=== PATIENT | male | born 1985 | race Caucasian/White ===

== ENCOUNTER → 2019-07-14 | Outpatient (CLI) | payer MEDICARE ==
[~2019-07-14] MED LIST: ATORVASTATIN CA10 MG PO; IOPAMIDOL 370 MG/ML 200 ML INFUS..BTL INJ ONE; METOPROLOL SUCC50 MG PO; PANTOPRAZOLE SO40 MG PO; RAMIPRIL5 MG PO; SODIUM CHLORIDE 0.9% 50ML 50 ML ONE; ULTRAM50 MG PO
[2019-07-14 15:37] LABS: BLOOD UREA NITROGEN 14 mg/dL (7-26); BUN/CREATININE RATIO 16 (6-25); CREATININE, SERUM 0.87 mg/dL (0.72-1.25); EST GLOMERULAR FILTRATION RATE > 60 ML/MIN (60-)
--- NOTE | 2019-07-14 16:30 | Diagnostic Imaging Report ---
ADDENDUM #1 Addendum of original interpretation of Dr. Godinez is provided at Dr. Eaton's request. There is a 2.0 x 1.6cm soft tissue nodule lateral to the left psoas muscle (axial image 54). Per Dr. Eaton, this was also present on an outside non-contrast CT although these images are not available for comparison at this time. Given the patient's history of malignancy, attention to this area on future follow-up imaging is recommended. The above findings were discussed with Dr. Eaton on 07/17/2019 1:36 PM, who responded indicating that the communication was understood. Signed by: Kandis Morales MD on 07/17/2019 2:38 PM ORIGINAL REPORT EXAM: CT of the abdomen and pelvis with and without intravenous contrast HISTORY: Renal stones COMPARISON: None TECHNIQUE: Abdomen and pelvis were scanned utilizing a multidetector helical scanner. Coronal and sagittal reformations were obtained. Scan was performed before and during the portal venous phase. DOSE REDUCTION: The examination was performed according to the departmental dose-optimization program, which includes automated exposure control, adjustment of the mA and/or kV according to patient size and/or use of iterative reconstruction technique. FINDINGS: LINES and TUBES: Partially visualized cardiac lead. LOWER THORAX: Unremarkable. HEPATOBILIARY: Decreased hepatic attenuation in relation to the spleen. No focal hepatic lesions. No biliary ductal dilation. GALLBLADDER: Cholecystectomy. SPLEEN: No splenomegaly. PANCREAS: No focal masses or ductal dilatation. ADRENALS: No adrenal nodules. KIDNEYS/URETERS: Kidneys enhance symmetrically. No hydronephrosis. No solid mass lesions. Right renal superior pole 1 cm probable simple cyst. Interpolar 0.2 cm bilateral nonobstructing renal stones. GI TRACT: Sliding hiatal hernia. No abnormal distention, wall thickening, or evidence of bowel obstruction. Appendectomy. PELVIC ORGANS/BLADDER: Unremarkable. LYMPH NODES: No lymphadenopathy. VESSELS: Unremarkable. PERITONEUM / RETROPERITONEUM: No free air or fluid. BONES: Bilateral L5 pars defects. SOFT TISSUES: Unremarkable. IMPRESSION: 1. Bilateral subcentimeter nonobstructing nephrolithiasis. 2. Low hepatic attenuation, can be seen in hepatic steatosis/inflammation. Correlate with LFTs. 3. Bilateral L5 pars defects. Signed by: Rudi Godinez MD on 07/14/2019 4:27 PM
== END ==
LOC: CT 14:52
PROVIDERS: ATTEND Urology
DX: C62.92 Malignant neoplasm of left testis, unspecified whether descended or undescended (principal)
CPT/HCPCS: 36415; 74178; 82565; 84520; Q9967

== ENCOUNTER → 2019-07-17 | Day surgery (SDC) | payer MEDICARE ==
[~2019-07-17] MED LIST changes: +B&O 60MG R/S 60 MG SUPP PR ONE; +CEFTRIAXONE SOD 1 GM/NS 50 ML 50 ML IV ONE; +DEXAMETHASONE SOD PHOS INJ 4 MG/ML VIAL ONE; +FENTANYL CITRATE/PF 100MCG/2 ML INJ ONE; +IOPAMIDOL 300MG/ML 50ML INFUS..BTL IV ONE; -IOPAMIDOL 370 MG/ML 200 ML INFUS..BTL INJ ONE; +LIDOCAINE HCL 2% LOCAL INJ 5 ML SDV VIAL INJ ONE; +METOCLOPRAMIDE HCL 10 MG/2ML VIAL ONE; +MIDAZOLAM HCL 2 MG/2 ML VIAL ONE; +MORPHINE SULFATE INJ 4 MG/ML INJ 1ML ONE; +ONDANSETRON HCL INJ 2MG/ML 2ML 2 MG/ML VIAL ONE; +PROPOFOL IV EMULSION 10 MG/ML 20 ML VIAL ONE; +SEVOFLURANE INHAL SOLN 250 ML PEN BTL ONE; -SODIUM CHLORIDE 0.9% 50ML 50 ML ONE
--- OUTSIDE RECORDS SUMMARY | 2019-07-17 11:10 | XMS REPORT | Summary of Care ---
Author Author Adilia Mendoza R.N. Unknown Address Unknown Phone Unavailable Care Team Providers Care Soaker Meat Name Role Phone ODILON Tao, MARGARITO Unavailable Unavailable Adilia Mendoza R.N. Unavailable Unavailable JASPER TYLER UT, STEFANIA Unavailable Unavailable JIMÉNEZ MARCOS MARTINEZ Unavailable Unavailable LANIE HOOKER MD Unavailable Unavailable JASPER D.O., ESTIVEN-PERLA Unavailable Unavailable Margarito Rivera MD Unavailable Unavailable THADDEUS ASTUDILLO MD Unavailable Unavailable Unavailable Unavailable Functional Status Name Dates Details Functional status health issues are not documented Status: Name Dates Details Cognitive status health issues are not documented Status: Problems Name Dates Details Fatigue (780.79, R53.83) Status: Active ICD (implantable cardioverter-defibrillator) in place (V45.02, Z95.810) Status: Active HTN (hypertension) (401.9, I10) Status: Active NICM (nonischemic cardiomyopathy) (425.4, I42.8) Status: Active Hyperlipidemia (272.4, E78.5) Status: Active Tobacco abuse counseling (V65.42, Z71.6) Status: Active Medications Name Dates Details Atorvastatin Calcium 10 MG Oral Tablet TAKE 1 TABLET DAILY. Quantity: 90 DHOBLE M.D., MARGARITO Active Metoprolol Succinate ER 25 MG Oral Tablet Extended Release 24 Hour TAKE ONE TABLET BY MOUTH DAILY * Quantity: 90 Refills: 3 DHOBLE M.D., MARGARITO Active Ramipril 2.5 MG Oral Capsule TAKE 1 CAPSULE ONCE DAILY. * Quantity: 90 Refills: 3 DHOBLE M.D., MARGARITO Active Allergies and Adverse Reactions Name Dates Details Azithromycin PACK (Allergy) Status: Active Codeine Derivatives (Allergy) Status: Active erythromycin (Allergy) Status: Active Sulfa Drugs (Allergy) Status: Active Zithromax (Allergy) Status: Active Past Medical History Name Dates Details History of Chronic systolic congestive heart failure (428.22, I50.22) Status: Resolved History of malignant neoplasm of colon (V10.05, Z85.038) Status: Resolved History of malignant neoplasm of testis (V10.47, Z85.47) Status: Resolved History of myocardial infarction (412, I25.2) Status: Resolved History of SOB (shortness of breath) on exertion (786.05, R06.02) Status: Resolved Procedures Procedure Dates Details History of Cardioverter defibrillator insertion Completed History of Testicular surgery Completed Immunization Name Dates Details Immunizations not documented Family History Name Dates Details Family history of Lupus (710.0, M32.9) Status: Active Family history of arthritis (V17.7, Z82.61) Status: Active Social History Name Dates Details - Status: Name Dates Details Smokes tobacco daily (finding) Vital Signs Date Test Result Details No Known Vitals to report Results Date Description Value Details Results not documented Plan of Care Name Dates Details Planned Observations Planned Goals not documented Planned Encounters Appointment; LANIE LOZANO On: 22-Jun-2019 14:45 Appointment; MARGARITO RIVERA M.D. On: 05-Oct-2019 9:40 Interventions Provided Discussion/Summary* Guideline Used: * Other: Speak to staff * Clinic: [facility] * Pt calling to report implanted pacemaker was vibrating @ 1300 and now transmitter is alarming. Reported issue to [facility] @ 1696, awaiting call back but anxious. He concerned pacemaker is not working properly. Reports h/o similar issue some time ago " I passed out without warning before and didn't have any symptoms then", ended up in ER and "told me my pacemaker was not working". Also concerned that pacemaker "A" lead is not working and told eventually need replacing. H/O NICM, HTN, BP 140/71 HR 83 and admits does not take BP meds x several months. Denies any chest pain, sob, difficulty breathing, palpitations, blurred vision, slurred speech, N/V, dizziness, lightheadedness. * @ 3871, Verbal report given to On-call Cardiology- Dr. Astudillo. Received and read back MD advice to go to [facility] ER to have device checked and integrate. * I reviewed MD advice as above. Understanding verbalized. Pt will have GF drive him to [facility] ER. * Recommended Disposition: * Go to ER * Action Taken: * Patient informed/educated about nurse line * Intended Caller Action: * Other: Speak to staff * Additional Information: * FYI urgent task sent to Dr. Rivera and Dr. Astudillo. Instructions Name Dates Details Instructions not documented Encounters Appointment; MARGARITO RIVERA M.D. Encounter Diagnosis: Problem not documented On: 30-Jun-2018 10:40 Appointment; MARGARITO RIVERA M.D. Encounter Diagnosis: Problem not documented On: 14-Jul-2018 9:20 Appointment; [facility] Encounter Diagnosis: Problem not documented On: 15-Jul-2018 15:30 Appointment; STEFANIA HUTCHINSON D.O. Encounter Diagnosis: Problem not documented On: 22-Jul-2018 9:30 Appointment; [facility], [facility] Encounter Diagnosis: Problem not documented On: 18-Aug-2018 8:00 Appointment; [facility] Encounter Diagnosis: Problem not documented On: 18-Aug-2018 9:15 Appointment; MARGARITO RIVERA M.D. Encounter Diagnosis: Problem not documented On: 01-Sep-2018 10:20 Appointment; MARGARITO RIVERA M.D. Encounter Diagnosis: Problem not documented On: 06-Oct-2018 9:20 Appointment; STEFANIA HUTCHINSON D.O. Encounter Diagnosis: Problem not documented On: 30-Oct-2018 13:45 Appointment; LANIE LOZANO Encounter Diagnosis: Problem not documented On: 24-Nov-2018 14:15 Appointment; MARCOS JIMÉNEZ Encounter Diagnosis: Problem not documented On: 03-Dec-2018 15:30 Appointment; LANIE LOZANO Encounter Diagnosis: Problem not documented On: 22-Dec-2018 16:00
--- OUTSIDE RECORDS SUMMARY | 2019-07-17 11:10 | XMS REPORT | Summary of Care ---
Author Author Adilia Mendoza R.N. Unknown Address Unknown Phone Unavailable Care Team Providers Care Digital Engineer Name Role Phone ODILON Tao, MARGARITO Unavailable [...] Used: * Other: Speak to staff * Clinic * Pt calling to report implanted pacemaker was vibrating @ 1300 and now transmitter is alarming. Reported issue to [facility] @ 2344, awaiting call back but anxious. He concerned pacemaker is not working properly. Reports h/o similar issue some time ago " I passed out without warning before and didn't have any symptoms then", ended up in ER and "told me my pacemaker was not working". Also concerned that pacemaker "A" lead is not working and told eventually need replacing.. BP 140/71 HR 83. Denies any chest pain, sob, difficulty breathing, palpitations, blurred vision, slurred speech, N/V, dizziness, lightheadedness. * @ , Verbal report given to Dr. Daniel waldronate Casentric machine. checked by ER Dr office on saturday or ER. * ER [facility] Instructions Name Dates Details Instructions not documented Encounters Appointment; MARGARITO RIVERA M.D. Encounter Diagnosis: Problem not documented On: 30-Jun-2018 10:40 Appointment; MARGARITO RIVERA M.D. Encounter Diagnosis: Problem not documented On: 14-Jul-2018 9:20 Appointment; [facility] Encounter Diagnosis: Problem not documented On: 15-Jul-2018 15:30 Appointment; STEFANIA HUTCHINSON D.O. Encounter Diagnosis: Problem not documented On: 22-Jul-2018 9:30 Appointment; [facility], [facility] Encounter Diagnosis: Problem not documented On: [...]
--- OUTSIDE RECORDS SUMMARY | 2019-07-17 11:10 | XMS REPORT | Summary of Care ---
Author Author Rosanna Jo Organization Unknown Address Unknown Phone Unavailable Care Team Providers Care Fuel Injection Servicer Name Role Phone Rosanna Jo Unavailable Unavailable MIGUEL Toa, MARGARITO Unavailable Unavailable YEIsaac APODACA, STEFANIA Unavailable Unavailable JIMÉNEZ MARCOS MARTINEZ Unavailable Unavailable LANIE HOOKER MD Unavailable Unavailable YEH D.O., ESTIVEN-PERLA Unavailable Unavailable Miguel BURCH, Margarito Unavailable Unavailable WILDA BURCH, THADDEUS Unavailable Unavailable Unavailable Unavailable Functional Status Name [...] Dates Details - Status: Name Dates Details Current every day smoker Vital Signs Date Test Result Details No Known Vitals to report Results Date Description Value Details Results not documented Plan of Care Name Dates Details Planned Observations Planned Goals not documented Planned Encounters Appointment; LANIE LOZANO On: 22-Jun-2019 14:45 Appointment; MARGARITO DONALD M.D. On: 05-Oct-2019 9:40 Instructions Name Dates Details Instructions not documented Encounters Appointment; MARGARITO DONALD M.D. Encounter Diagnosis: Problem not documented On: 30-Jun-2018 10:40 Appointment; MARGARITO DONALD M.D. Encounter Diagnosis: Problem not documented On: 14-Jul-2018 9:20 Appointment; [facility] Encounter Diagnosis: Problem not documented On: 15-Jul-2018 15:30 Appointment; STEFANIA HUTCHINSON D.O. Encounter Diagnosis: Problem not documented On: 22-Jul-2018 9:30 Appointment; [facility], E[facility] Encounter Diagnosis: Problem not documented On: 18-Aug-2018 8:00 Appointment; [facility], DEVICE Encounter Diagnosis: Problem not documented On: 18-Aug-2018 9:15 Appointment; MARGARITO DONALD M.D. Encounter Diagnosis: Problem not documented On: 01-Sep-2018 10:20 Appointment; MARGARITO DONALD M.D. Encounter Diagnosis: Problem not documented On: 06-Oct-2018 9:20 Appointment; STEFANIA HUTCHINSON D.O. Encounter Diagnosis: Problem not documented On: 30-Oct-2018 13:45 Appointment; LANIE LOZANO Encounter Diagnosis: Problem not documented On: 24-Nov-2018 14:15 Appointment; MARCOS JIMÉNEZ Encounter Diagnosis: Problem not documented On: 03-Dec-2018 15:30 Appointment; LANIE LOZANO Encounter Diagnosis: Problem not documented On: 22-Dec-2018 16:00
--- OUTSIDE RECORDS SUMMARY | 2019-07-17 11:10 | XMS REPORT ---
Author Author [facility] Address Unknown Phone Unavailable Care Team Providers Care Restaurant Manager Name Role Phone TEMI VAN Unavailable Unavailable Payers Payer Name Policy Type Policy Number Effective Date Expiration Date Problems This patient has no known problems. Allergies, Adverse Reactions, Alerts Allergy Name Allergy Type Status Severity Reaction(s) Onset Date Inactive Date Treating Clinician Comments adhesive DA Active SV 2019-07-07 00:00:00 Sulfa (Sulfonamide Antibiotics) DA Active U 2018-10-18 00:00:00 codeine DA Active U 2018-10-18 00:00:00 aspirin DA Active MO 2018-10-18 00:00:00 azithromycin DA Active U 2018-10-18 00:00:00 ibuprofen DA Active MO 2018-10-18 00:00:00 Sulfa (Sulfonamide Antibiotics) DA Active U 2018-09-29 00:00:00 codeine DA Active U 2018-09-29 00:00:00 aspirin DA Active MO 2018-05-10 00:00:00 azithromycin DA Active U 2010-06-13 00:00:00 ASPRIN DA Active U 2010-06-10 00:00:00 Medications This patient has no known medications. Encounters Start Date/Time End Date/Time Encounter Type Admission Type Attending [facility] Facility Care Department Encounter ID 2018-10-07 23:36:00 2018-10-07 23:36:00 Outpatient E SE MED [id number] 2018-08-28 12:08:00 2018-08-28 12:08:00 Outpatient HH CAR [id number] 2018-07-29 12:45:00 2018-07-29 12:45:00 Outpatient MHSE MHSE [id number] Results Test Description Test Time Test Comments Text Results Atomic Results Result Comments CT ABDOMEN/PELVIS WOW 2019-07-14 16:19:00 [place] [address] [place] [address] Patient Name: HOLLIE NGUYEN MR #: [id number] : 1985 Age/Sex: 33/M Req #: [id number] Adm Physician: Ordered by: TEMI VAN MD Report #: [id number] Location: CT Room/Bed: Procedure: [id number] CT/CT ABDOMEN/PELVIS WO Exam Date: 07/14/19 Exam Time: 1550 REPORT STATUS: Signed EXAM: CT of the abdomen and pelvis with and without i ntravenous contrast HISTORY: Renal stones COMPARISON: None TECHNIQUE: Abdomen and pelvis were scanned utilizing a multidetector helical scanner. Coronal and sagittal reformations were obtained. Scan was performed before and during the portal venous phase. DOSE REDUCTION: The examination was performed according to the departmental dose-optimization program, which includes automated exposure control, adjustment of the mA and/or kV according to patient size and/or use of iterative reconstruction technique. FINDINGS: LINES and TUBES: Partially visualized cardiac lead. LOWER THORAX: Unremarkable. HEPATOBILIARY: Decreased hepatic attenuation in relation to the spleen. No focal hepatic lesions. No biliary ductal dilation. GALLBLADDER: Cholecystectomy. SPLEEN: No splenomegaly. PANCREAS: No focal masses or ductal dilatation. ADRENALS: No adrenal nodules. KIDNEYS/URETERS: Kidneys enhance symmetrically. No hydronephrosis. No solid mass lesions. Right renal superior pole 1 cm probable simple cyst. Interpolar 0.2 cm bilateral nonobstructing renal stones. GI TRACT: Sliding hiatal hernia. No abnormal distention, wall thickening, or evidence of bowel obstruction. Appendectomy. PELVIC ORGANS/BLADDER: Unremarkable. LYMPH NODES: No lymphadenopathy. VESSELS: Unremarkable. PERITONEUM / RETROPERITONEUM: No free air or fluid. BONES: Bilateral L5 pars defects. SOFT TISSUES: Unremarkable. IMPRESSION: 1. Bilateral subcentimeter nonobstructing nephrolithiasis. 2. Low hepatic attenuation, can be seen in hepatic steatosis/inflammation. Correlate with LFTs. 3. Bilateral L5 pars defects. Signed by: Rudi Cummins MD on 07/14/2019 4:27 PM Dictated By: RUDI CUMMINS DO 26 Transcribed By: HAILE on 07/14/191626 COPY TO: TEMI VAN MD DUODENUM,BIOPSY 2019-07-09 15:50:00 RUN DATE: 07/09/19 [facility] PAGE 1 RUN TIME: 1551 Specimen Inquiry RUN USER: INTERFACE PATIENT: HOLLIE NGUYEN LOC: V.DSU U #: [id number] AGE/SX: 33/M ROOM: RE07/08/19REG DR: Henrry Parker MD : [birth year] BED: DIS: [place] [facility] [place] SPEC #: [id number] RECD: 07/08/19 STATUS: ANA LAURA GORDON #: [id number] CECY: 07/08/[address]: Henrry Parker MD ENTERED: 07/08/19 SP TYPE: BX DUODEN FREEDOM DR: ORDERED: GROSS PROCEDURES: GROSS (07/09/19) TISSUES: 1. DUODENUM, NOS - BX 2. 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 The second specimen is received in formalin, labeled with the patient's name, and identified as "gastric", and consists of four light pink biopsy tissue measuring 0.35 cm in aggregate, submitted as (2). GROSS PERFORMED AT [facility] CONTINUED ON NEXT PAGE RUN DATE: 07/09/19 [facility] PAGE 2 RUN TIME: 1551 Specimen Inquiry RUN USER: INTERFACE SPEC #: [id number] PATIENT: HOLLIE NGUYEN #[id number] (Continued) MACROSCOPIC (Continued) [address] [place] [address] [phone] MICROSCOPIC A giemsa stain was performed on the gastric biopsy to exclude helicobacter organisms. All of the stains, including any controls performed, stain appropriately. MICROSCOPIC PERFORMED AT [facility] [address] [place] [address] [phone] PERFORMING SITE Diagnosis performed at: [facility] [address] [facility] [address] Signed SIGNATURE ON FILE Kirk Devi MD 07/09/19 1550 END OF REPORT CALCIUM 2019-07-04 08:54:00 CALCIUM (test code=CA) 8.8 mg/dL 8.5-10.1 [id number] 08:54:00* Test Item Value Reference Range Comments PHOSPHORUS (test code=PHOS) 2.7 mg/dL 2.5-4.9 [id number] 08:54:00* Test Item Value Reference Range Comments MAGNESIUM (test code=MAG) 2.4 mg/dL 1.8-2.4 THYROID STIMULATING [id number] 08:54:00* Test Item Value Reference Range Comments THYROID STIMULATING HORMONE (test code=TSH) 0.844 uIU/mL 0.36-3.74 TSH REFERENCE RANGES: EUTHYROID: 0.35 - 4.3 mIU/mL HYPO : > 5.5 mIU/mL HYPER : < 0.35 mIU/mL [id number] 08:40:00* Test Item Value Reference Range Comments CALCIUM (test code=CA) 8.8 mg/dL 8.5-10.1 [id number] 08:40:00* Test Item Value Reference Range Comments PHOSPHORUS (test code=PHOS) mg/dL 2.5-4.9 [id number] 08:40:00* Test Item Value Reference Range Comments MAGNESIUM (test code=MAG) 2.4 mg/dL 1.8-2.4 THYROID STIMULATING [id number] 08:40:00* Test Item Value Reference Range Comments THYROID STIMULATING HORMONE (test code=TSH) uIU/mL 0.36-3.74 PROTHROMBIN [id number] 08:39:00* Test Item Value Reference Range Comments PROTHROMBIN TIME PATIENT (test code=PTP) 12.2 seconds 9.0-14.0 INTERNATIONAL NORMAL RATIO (test code=INR) 1.0 0.8-1.2 The therapeutic range for oral anticoagulant therapy formost indications is an international normalized ratio (INR)of between 2.0 and 3.0. The recommended therapeutic INRrange for various clinical situations is listed below: Clinical Situation INR range Pulmonary e mbolism treatment (2.0-3.0)Venous thrombosis treatmentVenous thrombosis prophylaxis (high risk surgery)Prevention of systemic embolism from: Acute myocardial infarction Valvular heart disease Atrial fibrillation Mechanical prosthetic heart valves (2.5-3.5) IS PATIENT ON ANTICOAGULANTS? N- CT CHEST [id number] 00:54:00 Name: HOLLIE NGUYEN [facility] : 1985 Age/S: 33 / M [address] [facility] [place] Unit #: [id number] Loc: [place] [address] Phys: Mynor Rivas MD Acct: [id number] Di s Date: Status: REG ER PHONE #: [phone] Exam Date: 07/04/2019 0037 FAX #: Reason: FEELS SOMETHING STUCK IN ESOPHAGUS EXAMS: CPT CODE: [id number] CT CHEST W/CO NTRAST 57935 AFTER HOURS SERVICE ON: 12:[address] Scan of the Chest With Contrast Location Code M12 History: FEELS SOMETHING STUCK IN ESOPHAGUS Technique: Scans were performed on a helical scanner post IV contrast only. One or more of the following dose reduction techniques were used: Automated exposure control, adjustment of the mA and/or kV a ccording to patient size, and/or utilization of iterative reconstruction technique. Findings: Mild atelectatic changes noted in the lung bases. There is no effusion, infiltrate, edema or pneum othorax. There is an old healed or healing right 6th lateral rib fracture . There is no cardiomegaly or pericardial effusion. There is no mediastinal mass or adenopathy. There is a small hiatal herni a. The esophagus contains minimal debris-like material in the distal thor acic segment. Remainder of the esophagus appears otherwise within normal limits. There is no extrinsic mass effect on the esophagus. There is no pneumomediastinum. Impression: Minimal d ebris-like material in the distal thoracic esophagus. Otherwise, unrema rkable CT appearance of the esophagus. Small hiatal hernia. Old or healing right 6th lateral rib fracture. at 0054 Reported and signed by: Maylin Downing M.D. PAGE 1 Signed Report (CONTINUED) Name: HOLLIE NGUYEN [facility] : 1985 Age/S: 33 / M [address] [facility] Unit #: [id number] Loc: [place] [address] Phys: Bhavya Rivas MD Acct: [id number] Dis Date: Status: REG ER PHONE #: [phone] Exam Date: 07/04/2019 0037 FAX #: [phone] Reason: FEELS SOMETHING STUCK IN ESOPHAGUS EXAMS: CPT CODE: [id number] CT CHEST W/CONTRAST 10873 < Continued> CC: Technologist:ALONDRA OCHOA RT(R),RDMS,CT CTDI: DLP: Trnscb Date/Time: 07/04/2019 (005) [email or web address] Orig Print D/T: S: 07/04/2019 (0058) PAGE 2 Signed Report - XR CHEST 1 [id number] 00:48:00 Name: HOLLIE NGUYEN [facility] : 1985 Age/S:33 /M [address] [facility] [place] Unit#:[id number] Loc: [place] [address] Phys: Mynor Rivas MD Dis Date: PHONE #: [phone] Status: REG ER FAX #: [phone] Exam Date: 07/04/2019 Re ason: CHEST PAIN EXAMS: CPT CODE: [id number] XR CHEST 1 V 75795 LOCATION: Q15 HISTORY: 33-year-old male who presents with chest pain. The patient is concerned t hat a piece of meat is lodged in the esophagus. COMMENT: A frontal chest radiograph was obtained at 12:22 a.m., and compared to study of November 02, 2008. Chronic appearing interstitial infiltrate is seen centrally the lungs. Lung periphery is clear. No pleural effusions are seen. The cardiac silhouette and mediastinal structures are unrema rkable. The skeleton and soft tissues are unremarkable. Agai n seen is a bipolar left-sided cardiac pacemaker. Cardiac monitoring leads are present. IMPRESSION: There is no radiogra phic evidence of acute cardiopulmonary disease. A chronic appearing inte rstitial markings are again seen centrally in the lungs. at 0048 Reported and signed by: Jose G Garcia M.D. CC: Technologist: ALONDRA OCHOA RT(R),RDMS,CT Trnscrpt Data: 07/04/2019 (0048) [email or web address] Orig Print D/T: S: 07/04/2019 (0051) PAGE 1 Signed Report BASIC METABOLIC [id number] 00:15:00* Test Item Value Reference Range Comments SODIUM (test code=NA) 139 mmol/L 136-145 POTASSIUM (test code=K) 4.0 mmol/L 3.5-5.1 CHLORIDE (test code=CL) 103 mmol/L 101-109 CARBON DIOXIDE (test code=CO2) 22.7 mmol/L 21-32 ANION GAP (test code=GAP) 17 mmol/L 10-20 GLUCOSE (test code=GLU) 107 mg/dL 74-106 BLOOD UREA NITROGEN (test code=BUN) 14 mg/dL 3-21 GLOMERULAR FILTRATION RATE (test code=GFR) > 60 mL/min >=60 Estimated GFR by using Modified MDRD formula.Chronic kidney disease is defined as either kidney damageor GFR <60 mL/min/1.73 m2 for >3 months. CREATININE (test code=CREAT) 0.83 mg/dL 0.55-1.3 BUN/CREATININE RATIO (test code=BUN/CREA) 16.9 10-20 CALCIUM (test code=CA) 8.7 mg/dL 8.4-10.2 HEPATIC FUNCTION [id number] 00:15:00* Test Item Value Reference Range Comments TOTAL PROTEIN (test code=PROT) 7.6 g/dL 6.5-8.4 ALBUMIN (test code=ALB) 3.9 g/dL 3.4-4.8 GLOBULIN (test code=GLOB) 3.7 G/DL 1-10 ALBUMIN/GLOBULIN RATIO (test code=A/G) 1.05 RATIO 0.75-1.50 BILIRUBIN TOTAL (test code=BILT) 0.30 mg/dL 0.0-1.0 BILIRUBIN DIRECT (test code=BILD) 0.10 mg/dL 0.0-0.30 SGOT/AST (test code=AST) 26 U/L 6-32 SGPT/ALT (test code=ALT) 56 U/L 12-78 Note: Change in REFERENCE RANGE due to new reagent method. ALKALINE PHOSPHATASE TOTAL (test code=ALKP) 100 U/L 38-126 [id number] 00:15:00* Test Item Value Reference Range Comments LIPASE (test code=LIP) 83 U/L 128-270 [id number] 00:15:00* Test Item Value Reference Range Comments TROPONIN-I (test code=TROPI) <0.015 ng/mL 0.00-0.056 B-TYPE NATRIURETIC [id number] 00:12:00* Test Item Value Reference Range Comments B-TYPE NATRIURETIC PEPTIDE (test code=BNP) 6.0 pg/mL 0-100 CBC W/O [id number] 00:04:00* Test Item Value Reference Range Comments WHITE BLOOD CELL (test code=WBC) 9.3 K/mm3 4.5-12.5 RED BLOOD CELL (test code=RBC) 4.94 mill/mm3 4.0-5.8 HEMOGLOBIN (test code=HGB) 15.4 gram/dL 13.0-17.5 HEMATOCRIT (test code=HCT) 44.0 % 42.0-52.0 MEAN CELL VOLUME (test code=MCV) 89.1 fL 80-98 MEAN CELL HGB (test code=MCH) 31.2 picogram 27.0-33.0 MEAN CELL HGB CONCETRATION (test code=MCHC) 35.0 gram/dL 33.0-36.0 RED CELL DISTRIBUTION WIDTH (test code=RDW) 12.3 % 11.6-16.2 RED CELL DISTRIBUTION WIDTH SD (test code=RDW-SD) 40.5 fL 37.0-51.0 PLATELET COUNT (test code=PLT) 315 K/mm3 150-450 MEAN PLATELET VOLUME (test code=MPV) 10.1 fL 6.7-11.0 CHLAMYDIA GC DNA BY [id number] 21:06:00* Test Item Value Reference Range Comments C. TRACHOMATIS DNA BY PCR (test code=CHLAMTDNA) Negative Negative N. GONORRHOEAE DNA BY PCR (test code=NGONORDNA) Negative Negative Performed At: [facility] [place], [place] [address]PdrpgpRitter Antonieta BURCH Ph:[phone] performed at: [facility] [address] [place] [address] URINALYSIS [id number] 14:10:00* Test Item Value Reference Range Comments UA COLOR (test code=COLU) YELLOW YELLOW UA APPEARANCE (test code=APPU) CLEAR CLEAR UA GLUCOSE DIPSTICK (test code=DGLUU) NEGATIVE mg/dL NEGATIVE UA BILIRUBIN DIPSTICK (test code=BILU) NEGATIVE mg/dL NEGATIVE UA KETONE DIPSTICK (test code=KETU) NEGATIVE mg/dL NEGATIVE UA SPECIFIC GRAVITY (test code=SGU) 1.041 1.001-1.035 UA BLOOD DIPSTICK (test code=JASMIN) Negative mg/dL NEGATIVE UA PH DIPSTICK (test code=DAYANARA) 5.5 5.0-8.0 UA PROTEIN DIPSTICK (test code=PROU) 30 (1+) mg/dL NEGATIVE UA UROBILINIOGEN DIPSTICK (test code=URO) 4.0 (2+) mg/dL NEGATIVE UA NITRITE DIPSTICK (test code=NATHALY) NEGATIVE NEGATIVE UA LEUKOCYTE ESTERASE W REFLEX (test code=LEUUR) NEGATIVE Mariia/uL NEGATIVE UA WBC (test code=WBCU) 0-5 per HPF 0-5 UA RBC (test code=RBCU) 3-5 #/HPF 0-5 UA EPITHELIAL CELLS (test code=EPIU) FEW per HPF FEW UA BACTERIA (test code=BACU) TRACE #/HPF NONE UA MUCUS (test code=MUCU) FEW #/LPF FEW Urine Source? Clean CatchURINALYSIS [id number] 14:05:00* Test Item Value Reference Range Comments UA COLOR (test code=COLU) YELLOW YELLOW UA APPEARANCE (test code=APPU) CLEAR CLEAR UA GLUCOSE DIPSTICK (test code=DGLUU) NEGATIVE mg/dL NEGATIVE UA BILIRUBIN DIPSTICK (test code=BILU) NEGATIVE mg/dL NEGATIVE UA KETONE DIPSTICK (test code=KETU) NEGATIVE mg/dL NEGATIVE UA SPECIFIC GRAVITY (test code=SGU) 1.041 1.001-1.035 UA BLOOD DIPSTICK (test code=JASMIN) Negative mg/dL NEGATIVE UA PH DIPSTICK (test code=DAYANARA) 5.5 5.0-8.0 UA PROTEIN DIPSTICK (test code=PROU) 30 (1+) mg/dL NEGATIVE UA UROBILINIOGEN DIPSTICK (test code=URO) 4.0 (2+) mg/dL NEGATIVE UA NITRITE DIPSTICK (test code=NATHALY) NEGATIVE NEGATIVE UA LEUKOCYTE ESTERASE W REFLEX (test code=LEUUR) NEGATIVE Mariia/uL NEGATIVE UA WBC (test code=WBCU) per HPF 0-5 UA RBC (test code=RBCU) per HPF 0-5 UA EPITHELIAL CELLS (test code=EPIU) per HPF Few UA BACTERIA (test code=BACU) per HPF NONE Urine Source? Clean CatchBASIC METABOLIC [id number] 13:05:00* Test Item Value Reference Range Comments SODIUM (test code=NA) 136 mmol/L 136-145 POTASSIUM (test code=K) 3.9 mmol/L 3.5-5.1 CHLORIDE (test code=CL) 104.0 mmol/L 98-107 CARBON DIOXIDE (test code=CO2) 24.0 mmol/L 21-32 ANION GAP (test code=GAP) 11.9 10-20 GLUCOSE (test code=GLU) 103 mg/dL 74-106 BLOOD UREA NITROGEN (test code=BUN) 16 mg/dL 7-18 GLOMERULAR FILTRATION RATE (test code=GFR) > 60 mL/min >=60 Estimated GFR by using Modified MDRD formula.Chronic kidney disease is defined as either kidney damageor GFR <60 mL/min/1.73 m2 for >3 months. CREATININE (test code=CREAT) 0.70 mg/dL 0.7-1.3 BUN/CREATININE RATIO (test code=BUN/CREA) 22.9 10-20 CALCIUM (test code=CA) 9.2 mg/dL 8.5-10.1 HEPATIC FUNCTION [id number] 13:05:00* Test Item Value Reference Range Comments TOTAL PROTEIN (test code=PROT) 8.3 gram/dL 6.4-8.2 ALBUMIN (test code=ALB) 4.3 g/dL 3.4-5.0 GLOBULIN (test code=GLOB) 4.0 gram/dL 2.7-4.2 ALBUMIN/GLOBULIN RATIO (test code=A/G) 1.1 0.75-1.50 BILIRUBIN TOTAL (test code=BILT) 0.60 mg/dL 0.0-1.0 BILIRUBIN DIRECT (test code=BILD) 0.14 mg/dL 0.0-0.20 SGOT/AST (test code=AST) 36 IUnit/L 15-37 SGPT/ALT (test code=ALT) 112 IUnit/L 12-78 ALKALINE PHOSPHATASE TOTAL (test code=ALKP) 71 IUnit/L 45-117 Note change in reference range due to change in reagent. [id number] 13:05:00* Test Item Value Reference Range Comments LIPASE (test code=LIP) 70 U/L 73.0-393.0 CBC W/O [id number] 12:37:00* Test Item Value Reference Range Comments WHITE BLOOD CELL (test code=WBC) 13.1 K/mm3 4.5-12.5 RED BLOOD CELL (test code=RBC) 5.85 mill/mm3 4.0-5.8 HEMOGLOBIN (test code=HGB) 17.3 gram/dL 13.0-17.5 HEMATOCRIT (test code=HCT) 51.4 % 42.0-52.0 MEAN CELL VOLUME (test code=MCV) 87.9 fL 80-98 MEAN CELL HGB (test code=MCH) 29.6 picogram 27.0-33.0 MEAN CELL HGB CONCETRATION (test code=MCHC) 33.7 gram/dL 33.0-36.0 RED CELL DISTRIBUTION WIDTH (test code=RDW) 11.9 % 11.6-16.2 PLATELET COUNT (test code=PLT) 280 K/mm3 150-450 MEAN PLATELET VOLUME (test code=MPV) 9.7 fL 6.7-11.0 CBC W/O [id number] 12:35:00* Test Item Value Reference Range Comments WHITE BLOOD CELL (test code=WBC) K/mm3 4.5-12.5 RED BLOOD CELL (test code=RBC) mill/mm3 4.0-5.8 HEMOGLOBIN (test code=HGB) 17.3 gram/dL 13.0-17.5 HEMATOCRIT (test code=HCT) 51.4 % 42.0-52.0 MEAN CELL VOLUME (test code=MCV) fL 80-98 MEAN CELL HGB (test code=MCH) picogram 27.0-33.0 MEAN CELL HGB CONCETRATION (test code=MCHC) gram/dL 33.0-36.0 RED CELL DISTRIBUTION WIDTH (test code=RDW) % 11.6-16.2 PLATELET COUNT (test code=PLT) K/mm3 150-450 MEAN PLATELET VOLUME (test code=MPV) fL 6.7-11.0 - CT ABD PELVIS [id number] 22:08:00 Name: HOLLIE NGUYEN [facility] : 1985 Age/S: 33 / M [address] [facility] Unit #: [id number] Loc: [place] [address] Phys: Bhavya Rivas MD Acct: [id number] Dis Date: Status: REG ER PHONE #: [phone] Exam Date: 10/16/2018 2045 FAX #: [phone] Reason: R TESTICULAR PAIN, RECENT HOSPITALIZED FOR EPID EXAMS: CPT CODE: [id number] CT ABD PELVIS W/CONT 96939 REASON FOR EXAM: R TESTICULAR PAIN, RECENT HOSPITALIZED FOR EPIDIDYMITIS EXAM ORDER DATE: 10/16/2018 7:57 PM Ordering M.D.: Bhavya Rivas MD PROCEDURE: - CT ABD PELVIS W/CONT contrast-enhanced axial CT images were acquired through the abdomen/pelvis at 5 mm intervals. Sagittal and coronal reformatted images were generated. Automated exposure control was utilized for this reduction. Phases of contrast: venous and delayed COMPARISON: Scrotal ultrasound earlier today FINDINGS: Visualized thorax: Leads from a cardiac device terminate in the right atrium and right ventricle. There is subsegmental atelectasis in the lung bases. Hepatobiliary system: Gallbladder is surgically absent. Incidental note is made of the [place] tail liver morphology (normal variant). Pancreas: Normal Spleen: Normal Adrenal glands: Normal Genitourinary system: There is a punctate renal stone measuring less than 3 mm in size in the right kidney. No hydronephrosis or hydroureter. Bilateral simple renal cysts are pres ent. Postsurgical changes of left orchiectomy are noted. Gas trointestinal tract and appendix: Postsurgical changes of appendectomy. No abnormal bowel distention or mural thickening. There is fatty metaplasia of the descending colon submucosa which may be from prior inflammation. Abdominal vascular structures: Normal. Peritoneum and retroperitoneum: No free fluid or free air. Multiple subcentimeter lymph n odes are seen in the root of the mesentery. These PAGE 1 Signed Report (CONTINUED) Name: HOLLIE NGUYEN [facility] : 1985 Age/S: 33 / M [address] [facility] [place] Unit #: [id number] Loc: P [place] [address] Phys: Bhavya Rivas MD Acct: [id number] Dis Date: Status: R EG ER PHONE #: [phone] Exam Date: 09/29 FAX #: [phone] Reason: R TESTICULAR P AIN, RECENT HOSPITALIZED FOR EPID EXAMS: CPT CODE: [id number] CT ABD PELVIS W/CONT 7 4177 <Continued> are nonspecific and may be secondary to an infectious or inflammatory process. Musculoskeletal structures and abdominal wall: Fat-containing umbilical hernia. IMPRESSION: Subcentimeter lymph nodes at the root of the mesentery are nonspecific and may be secondary to an infectious or inflammatory process. Right-sided renal stone without evidence of obstruction. Postsurgical changes of left-sided orchiectomy, appendectomy, and cholecystectomy. at 2208 Reported and signed by: Kolby Renteria MD CC: Technologist:ALONDRA OCHOA RT(R),RDMS,CT CTDI: DLP: Trnscb Date/Time: 10/16/2018 (2208) [email or web address] Orig Print D/T: S: 10/16/2018 (2210) PAGE 2 Signed Report - DUP AB/PEL/SC [id number] 21:29:00 Name: HOLLIE NGUYEN [facility] : 1985 Age/S: 33 / M [address] [facility] [place] Unit #: [id number] Loc: [place] [address] Phys: Mynor Rivas MD Acct: [id number] Di s Date: Status: REG ER PHONE #: Exam Date: 10/16/20182033 FAX #: Reason: R TESTICULAR PAIN, RECENT HOSPITALIZED FOR EPID EXAMS: CPT CODE: [id number] DUP AB/PEL/SC COMP [id number] REASON FOR EXAM: R TESTIC ULAR PAIN, RECENT HOSPITALIZED FOR EPIDIDYMITIS EXAM ORDER D ATE: 10/16/2018 7:57 PM Attending M.D.: Bhavya Rivas MD PROCEDURE: - US SCROTUM AND CNTS, - DUP AB/PEL/SC COMP Tech nique: Duplex scan was performed using grayscale imaging as well as color Doppler and spectral Doppler imaging of the testicles and epididymides. FINDINGS: The right testicle measures 4.6 x 2.1 x 3.4 cm. The left testicle is surgically absent No evidence of testicular mass. No evid ence of abscess. Unremarkable testicular flow is seen. The right e pididymis head measures 0.9 x 0.5 x 0.8 cm. Additionally the epididymal ta il is markedly enlarged and hypervascular The left epididymis is s urgically absent. The scrotal wall is thickened. I MPRESSION: Right-sided epididymitis. Sonographically unremarkable right testicle. Surgically absent left testicle and epididymis. El ectronically Signed by Kolby Renteria MD on 10/16/2018 at 2128 Reported and signed by: Kolby Renteria MD CC: Technologist: Nicole Montero RDMS Trnscb Date/Time: 10/16/2018 (2128) [email or web address] Orig Print D/T: S: 10/16/2018 (2131) Probe: PAGE 1 Signed Report - US SCROTUM AND [id number] 21:29:00 Name: HOLLIE NGUYEN [facility] [place] : 1985 Age/S: 33 / M [address] [facility] [place] Unit #: [id number] Loc: [place] [address] Phys: Bhavya Rivas MD Acct: [id number] Dis Date: Status: REG ER PHONE #: [phone] Exam Date: 10/16/20182033 FAX #: [phone] Reason: R TESTICULAR PAIN, RECENT HOSPITALIZED FOR EPID EXAMS: CPT CODE: [id number] US SCROTUM AND CNTS [id number] REASON FOR EXAM: R TESTICULAR PAIN, RECENT HOSPITALIZED FOR EPIDIDYMITIS EXAM ORDER DATE: 10/16/2018 7:57 PM Attending M.D.: Bhavya Rivas MD PROCEDURE: - US SCROTUM AND CNTS, - DUP AB/PEL/SC COMP Technique: Duplex scan was performed using grayscale imaging as well as color Doppler and spectral Doppler imaging of the testicles and epididymides. FINDINGS: The right testicle measures 4.6 x 2.1 x 3.4 cm. The left testicle is surgically absent No evidence of testicular mass. No evidence of abscess. Unremarkable testicular flow is seen. The right epididymis head measures 0.9 x 0.5 x 0.8 cm. Additionally the epididymal tail is markedly enlarged and hypervascular The left epididymis is surgically absent. The scrotal wall is thickened. IMPRESSION: Right-sided epididymitis. Sonographically unremarkable right testicle. Surgically absent left testicle and epididymis. at 212 Reported and signed by: Kolby Renteria MD CC: Technologist: Nicole Montero RDMS Trnscb Date/Time: 10/16/2018 (2128) [email or web address] Orig Print D/T: S: 10/16/2018 (2131) Probe: PAGE 1 Signed Report URINALYSIS [id number] 20:29:00* Test Item Value Reference Range Comments UA COLOR (test code=COLU) YELLOW YELLOW UA APPEARANCE (test code=APPU) CLEAR CLEAR UA GLUCOSE DIPSTICK (test code=DGLUU) norm mg/dL NEGATIVE UA BILIRUBIN DIPSTICK (test code=BILU) NEGATIVE mg/dL NEGATIVE UA KETONE DIPSTICK (test code=KETU) neg mg/dL NEGATIVE UA SPECIFIC GRAVITY (test code=SGU) 1.010 1.001-1.035 UA BLOOD DIPSTICK (test code=JASMIN) 10 (Trace) Shubham/uL NEGATIVE UA PH DIPSTICK (test code=DAYANARA) 6.5 5.0-8.0 UA PROTEIN DIPSTICK (test code=PROU) neg mg/dL Neg-15 UA UROBILINIOGEN DIPSTICK (test code=URO) norm mg/dL 0.0-0.2 UA NITRITE DIPSTICK (test code=NATHALY) NEGATIVE NEGATIVE UA LEUKOCYTE ESTERASE DIPSTICK (test code=LEUU) neg uL NEGATIVE UA WBC (test code=WBCU) NONE SEEN per HPF 0-5 UA RBC (test code=RBCU) 0-3 per HPF 0-5 UA EPITHELIAL CELLS (test code=EPIU) None seen per HPF Few UA BACTERIA (test code=BACU) FEW per HPF NONE Urine Source? Clean CatchURINALYSIS [id number] 20:21:00* Test Item Value Reference Range Comments UA COLOR (test code=COLU) YELLOW YELLOW UA APPEARANCE (test code=APPU) CLEAR CLEAR UA GLUCOSE DIPSTICK (test code=DGLUU) norm mg/dL NEGATIVE UA BILIRUBIN DIPSTICK (test code=BILU) NEGATIVE mg/dL NEGATIVE UA KETONE DIPSTICK (test code=KETU) neg mg/dL NEGATIVE UA SPECIFIC GRAVITY (test code=SGU) 1.010 1.001-1.035 UA BLOOD DIPSTICK (test code=JASMIN) 10 (Trace) Shubham/uL NEGATIVE UA PH DIPSTICK (test code=DAYANARA) 6.5 5.0-8.0 UA PROTEIN DIPSTICK (test code=PROU) neg mg/dL Neg-15 UA UROBILINIOGEN DIPSTICK (test code=URO) norm mg/dL 0.0-0.2 UA NITRITE DIPSTICK (test code=NATHALY) NEGATIVE NEGATIVE UA LEUKOCYTE ESTERASE DIPSTICK (test code=LEUU) neg uL NEGATIVE UA WBC (test code=WBCU) per HPF 0-5 UA RBC (test code=RBCU) per HPF 0-5 UA EPITHELIAL CELLS (test code=EPIU) per HPF Few UA BACTERIA (test code=BACU) per HPF NONE Urine Source? Clean CatchCOMPREHENSIVE METABOLIC [id number] 20:21:00* Test Item Value Reference Range Comments SODIUM (test code=NA) 138 mmol/L 135-148 POTASSIUM (test code=K) 4.2 mmol/L 3.5-5.1 CHLORIDE (test code=CL) 102 mmol/L 101-109 CARBON DIOXIDE (test code=CO2) 23.3 mmol/L 21-32 ANION GAP (test code=GAP) 17 mmol/L 10-20 GLUCOSE (test code=GLU) 114 mg/dL 74-106 BLOOD UREA NITROGEN (test code=BUN) 12 mg/dL 3-21 CREATININE (test code=CREAT) 0.86 mg/dL 0.55-1.3 BUN/CREATININE RATIO (test code=BUN/CREA) 14.0 10-20 TOTAL PROTEIN (test code=PROT) 7.9 g/dL 6.5-8.4 ALBUMIN (test code=ALB) 4.0 g/dL 3.4-4.8 GLOBULIN (test code=GLOB) 3.9 G/DL 1-10 ALBUMIN/GLOBULIN RATIO (test code=A/G) 1.0 RATIO 0.75-1.50 CALCIUM (test code=CA) 9.5 mg/dL 8.4-10.2 BILIRUBIN TOTAL (test code=BILT) 0.20 mg/dL 0.0-1.0 SGOT/AST (test code=AST) 36 U/L 6-32 SGPT/ALT (test code=ALT) 138 U/L 12-78 Note: Change in REFERENCE RANGE due to new reagent method. ALKALINE PHOSPHATASE TOTAL (test code=ALKP) 65 U/L 38-126 LACTIC [id number] 20:21:00* Test Item Value Reference Range Comments LACTIC ACID (test code=LACT) 1.3 MMOL/L 0.4-1.9 B-TYPE NATRIURETIC [id number] 20:20:00* Test Item Value Reference Range Comments B-TYPE NATRIURETIC PEPTIDE (test code=BNP) < 5.0 pg/mL 0-100 CBC W/AUTO [id number] 20:03:00* Test Item Value Reference Range Comments WHITE BLOOD CELL (test code=WBC) 16.3 K/mm3 4.5-12.5 RED BLOOD CELL (test code=RBC) 5.62 mill/mm3 4.0-5.8 HEMOGLOBIN (test code=HGB) 16.3 gram/dL 13.0-17.5 HEMATOCRIT (test code=HCT) 48.6 % 42.0-52.0 MEAN CELL VOLUME (test code=MCV) 86.5 fL 80-98 MEAN CELL HGB (test code=MCH) 29.0 picogram 27.0-33.0 MEAN CELL HGB CONCETRATION (test code=MCHC) 33.5 gram/dL 33.0-36.0 RED CELL DISTRIBUTION WIDTH (test code=RDW) 11.6 % 11.6-16.2 RED CELL DISTRIBUTION WIDTH SD (test code=RDW-SD) 37.5 fL 37.0-51.0 PLATELET COUNT (test code=PLT) 315 K/mm3 150-450 MEAN PLATELET VOLUME (test code=MPV) 10.1 fL 6.7-11.0 NEUTROPHIL % (test code=NT%) 63.4 % 39.0-69.0 LYMPHOCYTE % (test code=LY%) 25.1 % 25.0-55.0 MONOCYTE % (test code=MO%) 7.9 % 0.0-10.0 EOSINOPHIL % (test code=EO%) 2.2 % 0.0-5.0 BASOPHIL % (test code=BA%) 0.4 % 0.0-1.0 NEUTROPHIL # (test code=NT#) 10.32 K/mm3 1.8-7.7 LYMPHOCYTE # (test code=LY#) 4.09 K/mm3 1.0-5.0 MONOCYTE # (test code=MO#) 1.28 K/mm3 0-0.8 EOSINOPHIL # (test code=EO#) 0.36 K/mm3 0.0-0.5 BASOPHIL # (test code=BA#) 0.07 K/mm3 0.0-0.2 MANUAL DIFF REQUIRED (test code=MDIFF) NO - XR KNEE 3 V [id number] 18:24:00 Name: HOLLIE NGUYEN [facility] : 1985 Age/S:32 /M [address] [facility] [place] Unit#:[id number] Loc: [place], [place] [address] Phys: Mony Murphy NP Dis Date: PHONE #: [phone] Status: REG ER FAX #: [phone] Exam Date: 05/10/2018 Reason: injury EXAMS: CPT CODE: [id number] XR KNEE 3 V LT [id number] CLINICAL HISTORY: injury TECHNIQUE: AP, oblique, and lateral views of the left knee COMPARISON: None FINDINGS: No acute fracture or dislocation. Bony trabecular pattern is unremarkable. No cortical destruction or periosteal reaction. Joint spaces are preserved. No joint effusion. Regional soft tissues are unremarkable. IMPRESSION: Negative examination of the left knee. at 1824 Reported and signed by: Kolby Renteria MD CC: Mony Murphy NP Technologist: Geovanni Navarro RT(R)(CT) Trnscrpt Data: 05/10/2018 (1823) [id number] Orig Print D/T: S: 05/10/2018 (1711) PAGE 1 Signed Report
--- OUTSIDE RECORDS SUMMARY | 2019-07-17 11:10 | XMS REPORT | Summary of Care ---
Author Author Griselda Hanna R.N. Unknown Address Unknown Phone Unavailable Care Team Providers Care Spudder Name Role Phone ODILON Tao, MARGARITO Unavailable Unavailable Griselda Hanna R.N. Unavailable Unavailable STEFANIA BARRON Unavailable Unavailable MARCOS OCAMPO Unavailable Unavailable LANIE HOOKER MD Unavailable Unavailable JASPER Garcia.OHarris, ESTIVEN-PERLA Unavailable Unavailable Margarito Rivera MD Unavailable Unavailable WILDA BURCH, THADDEUS Unavailable Unavailable [...] Appointment; MARGARITO RIVERA M.D. On: 05-Oct-2019 9:40 Instructions Name Dates Details Instructions not documented Encounters Appointment; MARGARITO RIVERA M.D. Encounter Diagnosis: Problem not documented On: 30-Jun-2018 10:40 Appointment; MARGARITO RIVERA M.D. Encounter Diagnosis: Problem not documented On: 14-Jul-2018 9:20 Appointment; [facility] Encounter Diagnosis: Problem not documented On: 15-Jul-2018 15:30 Appointment; STEFANIA HUTCHINSON D.O. Encounter Diagnosis: Problem not documented On: 22-Jul-2018 9:30 Appointment; [facility], E[facility] Encounter Diagnosis: Problem not documented On: 18-Aug-2018 8:00 Appointment; [facility], DEVICE Encounter Diagnosis: Problem not documented On: [...]
[2019-07-17 11:35] LABS: BASOPHILS # (AUTO) 0.1 (0.0-0.1); BASOPHILS % 0.6 % (0.0-1.0); EOSINOPHILS # (AUTO) 0.2 (0.0-0.4); EOSINOPHILS % 2.5 % (0.0-6.0); HEMATOCRIT 43.7 % (38.2-49.6); HEMOGLOBIN 14.9 g/dL (14.0-18.0); LYMPHOCYTES # (AUTO) 2.2 (1.0-3.2); LYMPHOCYTES % 26.7 % (18.0-39.1); MEAN CORPUSCULAR HGB CONC 34.1 g/dL (31-35); MONOCYTES # (AUTO) 0.8 (0.2-0.8); MONOCYTES % 9.6 % (4.4-11.3); NEUTROPHILS # (AUTO) 4.9 (2.1-6.9); NEUTROPHILS % 60.4 % (38.7-80.0); PLATELET COUNT 253 x10e3/uL (140-360); RED CELL DISTRIBUTION WIDTH 12.4 % (11.7-14.4)
[2019-07-17 12:00] LABS: INR 0.89; PROTHROMBIN TIME 12.6 seconds (11.9-14.5)
[2019-07-17 12:01] LABS: PARTIAL THROMBOPLASTIN TIME 31.7 seconds (23.8-35.5)
[2019-07-17 12:12] LABS: ALANINE AMINOTRANSFERASE 72 IU/L (0-55); ALBUMIN 3.8 g/dL (3.5-5.0); ALBUMIN/GLOBULIN RATIO 1.2 (0.8-2.0); ALKALINE PHOSPHATASE 67 IU/L (40-150); ANION GAP 7.3 mmol/L (8-16); BLOOD UREA NITROGEN 10 mg/dL (7-26); BUN/CREATININE RATIO 14 (6-25); CALCIUM 9.1 mg/dL (8.4-10.2); CARBON DIOXIDE 24 mmol/L (22-29); CHLORIDE 107 mmol/L (98-107); CREATININE, SERUM 0.74 mg/dL (0.72-1.25); EST GLOMERULAR FILTRATION RATE > 60 ML/MIN (60-); GLUCOSE 98 mg/dL (74-118); POTASSIUM 4.3 mmol/L (3.5-5.1); SODIUM 134 mmol/L (136-145)
[2019-07-17 14:00] VITALS: BP 135/84
--- NOTE | 2019-07-18 13:46 | Operative Report ---
DATE OF PROCEDURE: 07/17/2019 SURGEON: Kyle Eaton MD PREOPERATIVE DIAGNOSES: 1. Urethral stricture disease. 2. Nephrolithiasis. POSTOPERATIVE DIAGNOSES: 1. Urethral stricture disease. 2. Nephrolithiasis. OPERATIONS PERFORMED: 1. Cystourethroscopy with calibration and dilation of long urethral stricture disease (separate procedure performed for stricture). 2. Cystourethroscopy with bilateral ureteral catheterization and retrograde ureteropyelography (separate procedure performed for the nephrolithiasis). 3. Interpretation of retrograde ureteropyelography, no radiologist present. ANESTHESIA: General. COMPLICATIONS: None. CLINICAL SUMMARY: vJ Rios is a 33-year-old man with a complicated urological history. The patient was born with hypospadias. He is status post hypospadias repair with hypospadias repair eventually resulted in a urethrocutaneous fistula repair. 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 Following that, the patient underwent chemotherapy and no radiation. The patient has a 2-cm mass lateral to his left psoas muscle, which apparently has been there for quite some time without significant change. The patient was noted to have bilateral [address] scanning as well. He is brought for the above procedures due to lower tract urinary obstructive symptomatology. He is aware of the risks of bleeding, infection, injury to adjacent structures, need for additional procedures and elected to proceed. This procedure is not elective. This procedure is done during the COVID-19 crisis due to the fact that the patient has obstructed voiding with potential to increase and cause further deterioration of the patient's left kidney function. The patient understands the risk of coronavirus infection caused by leaving his house is outweighed by the risk of damage to and deteriorations of his kidneys. OPERATIVE PROCEDURE IN DETAIL: Informed consent verified. Jv Rios was properly identified, taken to the operating room, placed on the cystoscopy table in supine position. Anesthesia was uneventfully begun. The patient was carefully gently repositioned into dorsal lithotomy position with all pressure points well padded. His genitalia were prepared and draped in the usual sterile fashion. A 21-Malawian cystoscope sheath with a visual obturator in place was atraumatically inserted into the patient's urethra, was guided into the distal urethra, where approximately 1.5 cm from the meatus, we noted a panurethral stricture disease. We utilized a female sounds to calibrate the stricture, that was approximately 16-Malawian in size and it was gently dilated to 26-Malawian in size. It was obvious by feel that this stricture probably at least 5 or 6 cm in length. We then introduced the cystoscope sheath and guided down the urethra, which confirmed that this was approximately 6 cm long stricture that we have now dilated to 26-Malawian in size. The bulbar region was normal. Sphincteric region was normal. The prostate bed was normal. We entered the patient's bladder. Panendoscopy revealed mild trabeculations, but no tumors, no stones, and no diverticula. Normally positioned configured ureteral orifices were identified. An 8-Malawian catheter was used to cannulate each ureter and retrograde ureteropyelograms were performed. Interpretation of retrograde ureteropyelography contrast was instilled in retrograde fashion bilaterally. There were no tumors, no stones, no diverticula. Unobstructed drainage was observed bilaterally fluoroscopically. The 2 mm stones noted on CT could not be visualized on retrograde study today. The patient's bladder was drained. The cystoscope was withdrawn. A 24-Malawian Lake catheter was placed. It was irrigated to and fro to ensure it worked properly. A belladonna and opium suppository were placed, revealing a small 15 g prostate, smooth, nonfluctuant without any nodules. The patient was uneventfully reversed from anesthesia and taken to Recovery in stable condition. There were no complications to the procedure. The patient tolerated the procedure well. Estimated blood loss was minimal. Explicit postoperative instructions were given, these include bleeding the Lake catheter in there and following up in approximately 2-3 weeks with removal. Following this, we will discuss with the patient plans for intermittently catheterizing his urethra on a daily basis for several months utilizing 22-Malawian or 24-Malawian coude tip catheters in order to maintain patency and prevent stricture recurrence. The stones will need long-term followup and management should they grow metabolic stone workup and stone prevention regimen is also necessary. We also plan on following this lesion in the vicinity of the psoas. We will discuss with the patient the option of biopsy versus followup versus excision in the future. Kyle Eaton MD OH/MODJazmyn /[id number] MTDJose
== END | disposition home or self-care (01) ==
LOC: OR 11:07
PROVIDERS: ATTEND Urology
DX: N35.919 Unspecified urethral stricture, male, unspecified site (principal); N20.0 Calculus of kidney; N32.89 Other specified disorders of bladder; M62.89 Other specified disorders of muscle; R80.9 Proteinuria, unspecified; R39.12 Poor urinary stream; R39.16 Straining to void; D68.0 Von Willebrand disease; K21.9 Gastro-esophageal reflux disease without esophagitis; I42.9 Cardiomyopathy, unspecified; I45.10 Unspecified right bundle-branch block; I10 Essential (primary) hypertension; E78.00 Pure hypercholesterolemia, unspecified; E78.5 Hyperlipidemia, unspecified; F17.210 Nicotine dependence, cigarettes, uncomplicated; Z88.1 Allergy status to other antibiotic agents; Z88.2 Allergy status to sulfonamides; Z85.47 Personal history of malignant neoplasm of testis; Z85.038 Personal history of other malignant neoplasm of large intestine; Z92.21 Personal history of antineoplastic chemotherapy; Z95.810 Presence of automatic (implantable) cardiac defibrillator; Z80.52 Family history of malignant neoplasm of bladder
CPT/HCPCS: 36415; 52281; 74420; 80053; 85025; 85610; 85730; 93005; C1758; J0696; J1100; J2001; J2250; J2270; J2405; J2704; J2765; J3010; Q9967

== ENCOUNTER 2019-07-24 21:01 | Emergency (ER) | payer MEDICARE ==
[~2019-07-24] VITALS: Ht 165.1 cm; Wt 72.6 kg
[~2019-07-24 21:01] MED LIST changes: -B&O 60MG R/S 60 MG SUPP PR ONE; -CEFTRIAXONE SOD 1 GM/NS 50 ML 50 ML IV ONE; -DEXAMETHASONE SOD PHOS INJ 4 MG/ML VIAL ONE; -FENTANYL CITRATE/PF 100MCG/2 ML INJ ONE; -IOPAMIDOL 300MG/ML 50ML INFUS..BTL IV ONE; -LIDOCAINE HCL 2% LOCAL INJ 5 ML SDV VIAL INJ ONE; -METOCLOPRAMIDE HCL 10 MG/2ML VIAL ONE; -MIDAZOLAM HCL 2 MG/2 ML VIAL ONE; -MORPHINE SULFATE INJ 4 MG/ML INJ 1ML ONE; -ONDANSETRON HCL INJ 2MG/ML 2ML 2 MG/ML VIAL ONE; -PROPOFOL IV EMULSION 10 MG/ML 20 ML VIAL ONE; -SEVOFLURANE INHAL SOLN 250 ML PEN BTL ONE
--- NOTE | 2019-07-24 21:20 | NUR ---
ATTEMPTED TO FLUSH JOHNSON WITHOUT SUCCESS. PAINFUL TO FLUSH FLUIDS AND NOT DRAINING
--- NOTE | 2019-07-24 22:16 | NUR ---
ON RETURN FROM CT TO ROOM PT ASKED TO INFORM MD OF NOW HAVING ABD PAIN 10/08. MD INFORMED. NO NEW ORDERS AT THIS TIME
--- NOTE | 2019-07-24 22:55 | NUR ---
EMPTIED 225ML FROM LEG BAG. DARK SLIGHTLY CLOUDY URINE. ORDERED UA.
--- NOTE | 2019-07-24 22:56 | NUR ---
PT STATES STILL HAVING ABD PAIN. AWARE. AWAITING CT RESULTS
[2019-07-24] MEDS ORDERED: LIDOCAINE HCL 2% JELLY 5 ML TUBE TOP STA (23:15)
--- NOTE | 2019-07-24 23:15 | Diagnostic Imaging Report ---
EXAM: CT Abdomen and Pelvis without contrast INDICATION: Need to see if the Lake catheter is in the bladder. COMPARISON: CT abdomen/pelvis 07/14/2019 and retrograde pyelogram 07/17/2019. TECHNIQUE: Abdomen and pelvis were scanned utilizing a multidetector helical scanner from the lung base to the pubic symphysis without administration of IV contrast. Coronal and sagittal reformations were obtained. IV CONTRAST: None. ORAL CONTRAST: None COMPLICATIONS: None RADIATION DOSE: Total DLP: 795 mGy*cm Estimated effective dose: (DLP x 0.015 x size factor) mSv CTDIvol has been reviewed. It is below the limits set by the Radiation Protocol Committee (RPC). FINDINGS: LINES and TUBES: Lake catheter terminates in the bladder. Partially visualized pacemaker leads. LOWER THORAX: Mild patchy right basilar atelectasis. HEPATOBILIARY: No evidence of focal lesion. No biliary ductal dilation. GALLBLADDER: Status post cholecystectomy. SPLEEN: No splenomegaly. PANCREAS: No focal masses or ductal dilatation. ADRENALS: No adrenal nodules KIDNEYS/URETERS: No evidence of hydronephrosis or mass. There are 3 mm bilateral mid pole nonobstructing renal stones. GI TRACT: No evidence of wall thickening or distension. Appendix is normal. Small sliding hiatal hernia. Status post appendectomy. Fatty infiltration into the wall of the distal colon and terminal ileum, which may represent sequela of prior inflammation. PELVIC ORGANS/BLADDER: Lake catheter in the bladder. Air within the bladder, likely iatrogenic. Surgical clip in the pelvis. LYMPH NODES: No lymphadenopathy. VESSELS: Unremarkable. PERITONEUM / RETROPERITONEUM: No free air or fluid. BONES AND SOFT TISSUES: No acute osseous abnormality. Bilateral L5 pars defects without spondylolisthesis. Mild degenerative disc changes of the visualized spine. Unchanged 2.0 x 1.6 cm soft tissue nodule lateral to the left psoas muscle. Small fat-containing umbilical hernia. CONCLUSION: Lake catheter terminates in the bladder. Bilateral nonobstructing nephrolithiasis. Unchanged appearance of 2 x 1.6 cm soft tissue nodule lateral to the left psoas muscle. Given the patient's history of malignancy, attention to this area on future follow-up imaging is recommended. Fatty infiltration into the wall of the distal colon and terminal ileum, which may represent sequela of prior inflammation. Signed by: Dr. Jonna Alberto MD on 07/24/2019 11:12 PM
--- NOTE | 2019-07-24 23:24 | NUR ---
TALKING WITH DR VAN ON SPEAKER PHONE AND TO PT. DR VAN GIVING PT RESULTS AND INFORMING HIM HE NEEDS TO DRINK MORE FLUIDS. JOHNSON CATH IS DRAINING WITHOUT DIFF AT THIS TIME. APPROX. 20-30CC IN BAG..
[2019-07-24] MEDS ORDERED: LIDOCAINE VISC 2% SOLN 15 ML UDC ONE (23:25)
--- NOTE | 2019-07-24 23:30 | NUR ---
PT MAD AT ALL EMPLOYEES IN THIS ER. STATES HE WAS WAITING 45MINS FOR HIS TEST AND COULD HEAR US LAUGHING AND TALKING. STATES WE DID NOTHING FOR HIM. PT SMARTING OFF AT ANYTHING WE TRY TO HELP HIM WITH. PT HAS BEEN CONSTANTLY ON HIS PHONE SINCE HE ARRIVED. EVEN WHEN HE WAS ARGUING WITH THE DOCTOR. WHEN I TRIED TO EXPLAIN THE POC TO SEND HIM HOME WITH RX FOR LEVAQUIN HE STATES HE CAN'T TAKE IT AND STARTED TO WALK OUT. ASKED HIM AGAIN WHAT HIS ALLERGIES ARE HE STATED IT WAS SULFA'S AND MYCINS. EXPLAINED HE WAS GIVING HIM WHAT DR VAN ASKED HIM TO BE PUT ON. WHEN ASKED IF HE WAS GOING TO WAIT FOR DC PAPERS, HE SMARTED OFF TO THE DR STATING " IS THAT GOING TO TAKE ANOTHER HR" THEN PROCEEDED TO TEXT ON HIS PHONE WHILE STANDING IN HALLWAY.
[2019-07-24 23:45] VITALS: BP 158/86
== END 2019-07-24 23:41 | disposition home or self-care (01) ==
LOC: FSED 21:01
DX: R33.9 Retention of urine, unspecified (principal); E86.0 Dehydration; I10 Essential (primary) hypertension; I42.9 Cardiomyopathy, unspecified; E78.5 Hyperlipidemia, unspecified; Z85.47 Personal history of malignant neoplasm of testis; F17.210 Nicotine dependence, cigarettes, uncomplicated
CPT/HCPCS: 74176; 87086; 87186; 99284

== ENCOUNTER 2019-09-10 17:50 | Inpatient (IN) | payer MEDICARE, OTHER ==
[~2019-09-10] VITALS: Ht 165.1 cm; Wt 76.7 kg
[2019-09-10] MEDS: SODIUM CHLORIDE 0.9% 1000ML 1,000 ML IV SCH (00:17)
[~2019-09-10 17:50] MED LIST changes: -FENTANYL CITRATE/PF 100MCG/2 ML INJ ONE; -MIDAZOLAM HCL 2 MG/2 ML VIAL ONE
--- OUTSIDE RECORDS SUMMARY | 2019-09-10 17:52 | XMS REPORT | Summary of Care ---
Author Author [facility] Organization [facility] Address Unknown Phone Unavailable Encounter KELSEA De La Cruz(KAYKAY) [id number] Date(s): 10/07/18 - 10/09/18 [facility] [address] [place] [address]- Discharge Disposition: Home or Self Care Attending Physician: Celio Juarez MD Admitting Physician: Celio Juarez MD Vital Signs 1 2 3 Most recent to oldest [Reference Range]: 165.1 cm (10/08/18 9:00 AM) 165.1 cm (10/08/18 12:28 AM) 165.1 cm (10/07/18 8:44 PM) Height 98.1 DegF (10/09/18 7:10 AM) 97.5 DegF (10/09/18 4:00 AM) 98.4 DegF (10/08/18 11:33 PM) Temperature Oral [96.4-99.1 DegF] 117/74 mmHg (10/09/18 7:10 AM) 137/56 mmHg (10/09/18 4:00 AM) 123/70 mmHg (10/08/18 11:33 PM) Blood Pressure [90-140/60-90 mmHg] 16 BRMIN (10/09/18 7:10 AM) 16 BRMIN (10/09/18 4:00 AM) 16 BRMIN (10/08/18 11:33 PM) Respiratory Rate [14-20 BRMIN] 57 bpm *LOW* (10/09/18 7:10 AM) 58 bpm *LOW* (10/09/18 4:00 AM) 60 bpm (10/08/18 11:33 PM) Peripheral Pulse Rate [60-100 bpm] 70.455 kg (10/08/18 9:00 AM) 70.455 kg (10/08/18 12:28 AM) 70.455 kg (10/07/18 8:44 PM) Weight 25.85 m2 (10/08/18 9:00 AM) 25.85 m2 (10/08/18 12:43 AM) 25.85 m2 (10/08/18 12:28 AM) Body Mass Index Problem List Condition Effective Dates Status Health Status Informan t Cardiomyopathy(Confi Resolved rmed) Allergies, Adverse Reactions, Alerts Substance Reaction Severity Status sulfa drugs Active erythromycin Active azithromycin Active vancomycin Active aspirin cannot take d/t Von Willebrand disease Active Medications RN-Vanco trough reminder on 10/09 @ 12:15 RN-Vanco trough reminder on 10/09 @ 12:15, Attn:JOHNATHON, Drug form: MISC, Rou te: MISC, ONCE, 10/09/18 11:45:00 CDT, Stop date: 10/09/18 11:45:00 CDT, 0 Start Date: 10/09/18 Stop Date: 10/09/18 Status: Completed acetaminophen 650 mg, 2 tab, Route: PO, Drug form: TAB, Q4H, Dosing Weight 70.455, kg, PRN Raquel n 1-3/Temp > 100.4 F, Start date: 10/08/18 0:43:00 CDT, Duration: 30 day, Stop date: 11/07/18 0:42:00 CDT, 0 Notes: Do not exceed 4 gm/day. (Same as: Tylenol) Start Date: 10/08/18 Stop Date: 10/09/18 Status: Discontinued atorvastatin 10 mg, 1 tab, Route: PO, Drug form: TAB, Bedtime, Dosing Weight 70.455, kg, Star t date: 10/08/18 21:00:00 CDT, Duration: 30 day, Stop date: 11/06/18 21:00:00 CD T, 0 Notes: (Same As: Lipitor) Start Date: 10/08/18 Stop Date: 10/09/18 Status: Discontinued Augmentin 875 mg oral tablet 875 mg = 1 tab, PO, Q12H, X 14 day, # 28 tab, 0 Refill(s), Pharmacy: [facility] [id number] Start Date: 10/09/18 Stop Date: 10/23/18 Status: Ordered Benadryl 25 mg, 1 tab, Route: PO, Drug form: TAB, ONCE, Dosing Weight 70.455, kg, Start d ate: 10/08/18 3:27:00 CDT, Stop date: 10/08/18 3:27:00 CDT, 0 Start Date: 10/08/18 Stop Date: 10/08/18 Status: Completed doxycycline 100 mg, 2 cap, Route: PO, Drug form: CAP, [id number], Dosing Weight 70.455, kg, Sta rt date: 10/08/18 16:00:00 CDT, Duration: 10 day, Stop date: 10/18/18 4:00:00 CD T, 0 Notes: (Same as: Vibramycin) No milk/antacids/iron. Take 1 hour before or 2 clementine rs after dairy products Start Date: 10/08/18 Stop Date: 10/09/18 Status: Discontinued doxycycline monohydrate 100 mg oral capsule 100 mg = 1 cap, PO, Q12H, X 10 day, # 20 cap, 0 Refill(s), [facility] [id number] Start Date: 10/09/18 Stop Date: 10/19/18 Status: Ordered linezolid 600 mg, 300 mL, Route: IV, Drug form: SOLN, ONCE, Dosing Weight 70.455, kg, Star t date: 10/09/18 1:43:00 CDT, Stop date: 10/09/18 1:43:00 CDT, ABX Indication: O ther (specify in Comments), 0 Notes: (Same as: Zyvox) Start Date: 10/09/18 Stop Date: 10/09/18 Status: Completed miconazole topical 2% ointment 1 appl, Route: TOP, BID, Drug form: CRM, Start date: 10/08/18 9:00:00 CDT, Durat ion: 30 day, Stop date: 11/06/18 17:00:00 CDT, 0 Notes: (Same as: Monistat Derm, Mication) For external use only. Start Date: 10/08/18 Stop Date: 10/09/18 Status: Discontinued morphine 0.5 mg/mL preservative-free injectable solution 4 mg, Route: IVP, Q4H, Dosing Weight 70.455, kg, PRN Pain Score 7-10, Start date : 10/08/18 23:11:00 CDT, Duration: 30 day, Stop date: 11/07/18 23:10:00 CDT Start Date: 10/08/18 Stop Date: 10/09/18 Status: Deleted morphine Sulfate 4 mg, 1 mL, Route: IVP, Drug form: SOLN, ONCE, Dosing Weight 70.455, kg, PRN Raquel n Score 7-10, Priority: STAT, Start date: 10/08/18 20:16:00 CDT, 0 Notes: (Same as:MORPhine Sulfate) Start Date: 10/08/18 Stop Date: 10/08/18 Status: Completed morphine Sulfate 4 mg, Route: IVP, ONCE, Dosing Weight 70.455, kg, Priority: STAT, Start date: 23:35:00 CDT, Stop date: 10/07/18 23:35:00 CDT Start Date: 10/07/18 Stop Date: 10/07/18 Status: Completed morphine Sulfate 4 mg, 1 mL, Route: IVP, Drug form: SOLN, Q4H, Dosing Weight 70.455, kg, PRN Pain Score 7-10, Start date: 10/08/18 22:27:00 CDT, Duration: 30 day, Stop date: 12/18 22:26:00 CDT, 0 Notes: (Same as:MORPhine Sulfate) Start Date: 10/08/18 Stop Date: 10/09/18 Status: Discontinued nitroglycerin SL Tab 0.4 mg, 1 tab, Route: SL, Drug form: TAB, Q5Min, Dosing Weight 70.455, kg, PRN C hest Pain, Start date: 10/08/18 0:43:00 CDT, Duration: 3 doses or times, Stop da te: Limited # of times, 0 Notes: (Same as:Nitroquick, Nitrostat)"Do Not Crush" Sublingual tablet Start Date: 10/08/18 Stop Date: 10/09/18 Status: Discontinued ondansetron 4 mg, 1 tab, Route: PO, Drug form: TAB, Q8H, Dosing Weight 70.455, kg, PRN Nause a & Vomiting, Start date: 10/08/18 0:43:00 CDT, Duration: 30 day, Stop date: 11/07/18 0:42:00 CDT, 0 Notes: (Same as: Zofran) Start Date: 10/08/18 Stop Date: 10/09/18 Status: Discontinued ramipril 2.5 mg, 1 cap, Route: PO, Drug form: CAP, Daily, Dosing Weight 70.455, kg, Start date: 10/08/18 9:00:00 CDT, Duration: 30 day, Stop date: 11/06/18 9:00:00 CDT, 0 Notes: (Same as:Altace) Start Date: 10/08/18 Stop Date: 10/09/18 Status: Discontinued Rocephin 250 mg, Route: IM, Drug form: PDR/INJ, ONCE, Dosing Weight 70.455, kg, Start shanda e: 10/08/18 15:18:00 CDT, Stop date: 10/08/18 15:18:00 CDT, ABX Indication: Aarti francis Tract Infection, 0 Notes: (Same As: Rocephin) Start Date: 10/08/18 Stop Date: 10/08/18 Status: Completed Saline Flush 0.9% 10 ml, Route: IVP, Drug Form: INJ, Dosing Weight 70.455, kg, Q12H, Start date: 0 10/08/18 9:00:00 CDT, Duration: 30 day, Stop date: 11/06/18 21:00:00 CDT, 0 Notes: (Same as: BD Posiflush) Start Date: 10/08/18 Stop Date: 10/09/18 Status: Discontinued Saline Flush 0.9% 10 ml, Route: IVP, Drug Form: INJ, Dosing Weight 70.455, kg, PRN, PRN Line Flush , Start date: 10/08/18 0:43:00 CDT, Duration: 30 day, Stop date: 11/07/18 0:42:0 0 CDT, 0 Notes: (Same as: BD Posiflush) Start Date: 10/08/18 Stop Date: 10/09/18 Status: Discontinued Toprol-XL 25 mg oral tablet, extended release 25 mg, 1 tab, Route: PO, Drug form: ERTAB, Daily, Start date: 10/08/18 9:00:00 C DT, Duration: 30 day, Stop date: 11/06/18 9:00:00 CDT, 0 Notes: (Same as: Toprol XL) Do Not Crush Start Date: 10/08/18 Stop Date: 10/09/18 Status: Discontinued Tylenol with Codeine #3 oral tablet 1 tab, Route: PO, Drug Form: TAB, Dosing Weight 70.455, kg, Q6H, PRN Pain Score 1-3, Start date: 10/08/18 3:25:00 CDT, Duration: 30 day, Stop date: 11/07/18 3:2 4:00 CDT, 0 Notes: Do not exceed 4gm/day of acetaminophen. (Same as: Tylenol with Codeine # 3) Start Date: 10/08/18 Stop Date: 10/09/18 Status: Discontinued Tylenol with Codeine #3 oral tablet 1 tab, PO, Q6H, PRN Pain, X 7 day, # 28 tab, 0 Refill(s) Start Date: 10/09/18 Stop Date: 10/16/18 Status: Ordered vancomycin 1,000 mg, Route: IVPB, Drug form: INJ, [id number], Dosing Weight 70.455, kg, Start date: 10/08/18 1:00:00 CDT, Duration: 7 day, Stop date: 10/14/18 13:00:00 CDT, A BX Indication: Skin/Soft Tissue Infection Start Date: 10/08/18 Stop Date: 10/08/18 Status: Canceled vancomycin + Sodium Chloride 0.9% IV 250 mL 1,250 mg, Route: IVPB, [id number], Start date: 10/08/18 1:00:00 CDT, Duration: 7 da y, Stop date: 10/15/18 1:00:00 CDT, ABX Indication: Skin/Soft Tissue Infection, 0 Notes: TIME CRITICAL MEDICATION(Same As: Vancocin)Infusion rate< 1000 mg: infuse over 1 [id number] - 1500 mg: infuse over 1.5 [id number] - 2000 mg: infuse over 2 hours> 2001 mg: infuse over 2.5 hoursFor adult patients only: Round to nearest 250 mg per Medical Staff approval MEDICATION WASTE Product Size: 1000 mgProduct Wasted: ___ mg Start Date: 10/08/18 Stop Date: 10/09/18 Status: Discontinued Vancomycin Pharmacy Dosing 1 ea, Route: MISC, ONCALL, Dosing Weight 70.455, kg, Start date: 10/08/18 1:00:0 0 CDT, Duration: 7 day, Stop date: 10/15/18 0:59:00 CDT, Pharmacy to dose, ABX I ndication: Skin/Soft Tissue Infection Start Date: 10/08/18 Stop Date: 10/08/18 Status: Completed Zofran 4 mg, Route: IVP, Drug form: INJ, ONCE, Dosing Weight 70.455, kg, Priority: STAT , Start date: 10/07/18 23:35:00 CDT, Stop date: 10/07/18 23:35:00 CDT Start Date: 10/07/18 Stop Date: 10/07/18 Status: Completed Results 1 2 3 Most recent to oldest [Reference Range]: 10.1 K/CMM *HI* (10/09/18 3:31 AM) 14.1 K/CMM *HI* (10/07/18 9:30 PM) Neutrophils # [1.5-8.1 K/CMM] 2.4 K/CMM (10/09/18 3:31 AM) 2.4 K/CMM (10/07/18 9:30 PM) Lymphocytes # [1.0-5.5 K/CMM] 1.3 K/CMM *HI* (10/09/18 3:31 AM) 1.0 K/CMM *HI* (10/07/18 9:30 PM) Monocytes # [0.0-0.8 K/CMM] 0.4 K/CMM (10/09/18 3:31 AM) 0.3 K/CMM (10/07/18 9:30 PM) Eosinophils # [0.0-0.5 K/CMM] 0.1 K/CMM (10/09/18 3:31 AM) 0.1 K/CMM (10/07/18 9:30 PM) Basophils # [0.0-0.2 K/CMM] 7 pg/mL (10/07/18 9:30 PM) BNP [<=100 pg/mL] 119 mL/min/1.73m2 1 *NA* (10/09/18 3:31 AM) 121 mL/min/1.73m2 2 *NA* (10/07/18 9:30 PM) eGFR 1.1 (10/07/18 9:30 PM) A/G Ratio [0.7-1.6] 3.9 g/dL (10/07/18 9:30 PM) Albumin Lvl [3.5-5.0 g/dL] 55 unit/L (10/07/18 9:30 PM) Alk Phos [39-136 unit/L] 32 unit/L (10/07/18 9:30 PM) ALT [0-65 unit/L] 10.0 mEq/L (10/09/18 3:31 AM) 10.9 mEq/L (10/07/18 9:30 PM) AGAP [10.0-20.0 mEq/L] 15 unit/L (10/07/18 9:30 PM) AST [0-37 unit/L] 16 (10/07/18 9:30 PM) B/C Ratio [6-25] 0.5 % (10/09/18 3:31 AM) 0.5 % (10/07/18 9:30 PM) Basophils [0.0-1.0 %] 15 mg/dL (10/09/18 3:31 AM) 12 mg/dL (10/07/18 9:30 PM) BUN [7-22 mg/dL] 8.4 mg/dL *LOW* (10/09/18 3:31 AM) 8.5 mg/dL (10/07/18 9:30 PM) Calcium Lvl [8.5-10.5 mg/dL] 6.06 (10/08/18 4:37 AM) CHD Risk [4.00-7.30] 188 mg/dL (10/08/18 4:37 AM) Chol [<=199 mg/dL] 104 mEq/L (10/09/18 3:31 AM) 107 mEq/L (10/07/18 9:30 PM) Chloride Lvl [95-109 mEq/L] 26 mEq/L (10/09/18 3:31 AM) 24 mEq/L (10/07/18 9:30 PM) CO2 [24-32 mEq/L] 0.78 mg/dL (10/09/18 3:31 AM) 0.76 mg/dL (10/07/18 9:30 PM) Creatinine Lvl [0.50-1.40 mg/dL] 2.8 % (10/09/18 3:31 AM) 1.6 % (10/07/18 9:30 PM) Eosinophils [0.0-4.0 %] 3.6 g/dL (10/07/18 9:30 PM) Globulin [2.7-4.2 g/dL] 108 mg/dL *HI* (10/09/18 3:31 AM) 96 mg/dL (10/07/18 9:30 PM) Glucose Lvl [70-99 mg/dL] 42.4 % (10/09/18 3:31 AM) 44.8 % (10/07/18 9:30 PM) Hct [42.0-54.0 %] 31 mg/dL *LOW* (10/08/18 4:37 AM) HDL [>=61 mg/dL] 14.4 g/dL (10/09/18 3:31 AM) 15.2 g/dL (10/07/18 9:30 PM) Hgb [14.0-18.0 g/dL] 1.07 (10/07/18 9:30 PM) INR [0.85-1.17] 4.0 mEq/L (10/09/18 3:31 AM) 3.9 mEq/L (10/07/18 9:30 PM) Potassium Lvl [3.5-5.1 mEq/L] 113 mg/dL *HI* (10/08/18 4:37 AM) LDL (Calculated) [<=99 mg/dL] 62 unit/L *LOW* (10/07/18 9:30 PM) Lipase Lvl [73-393 unit/L] 16.8 % *LOW* (10/09/18 3:31 AM) 13.2 % *LOW* (10/07/18 9:30 PM) Lymphocytes [20.0-40.0 %] 30.0 pg (10/09/18 3:31 AM) 29.8 pg (10/07/18 9:30 PM) MCH [27.0-31.0 pg] 34.0 g/dL (10/09/18 3:31 AM) 34.0 g/dL (10/07/18 9:30 PM) MCHC [32.0-36.0 g/dL] 88.2 fL (10/09/18:31 AM) 87.8 fL (10/07/18:30 PM) MCV [80.0-94.0 fL] 2.1 mg/dL (10/07/18:30 PM) Magnesium Lvl [1.8-2.4 mg/dL] 8.8 % (10/09/18 3:31 AM) 5.6 % (10/07/18:30 PM) Monocytes [2.0-12.0 %] 8.9 fL (10/09/18:31 AM) 8.9 fL (10/07/18:30 PM) MPV [7.4-10.4 fL] 136 mEq/L (10/09/18:31 AM) 138 mEq/L (10/07/18:30 PM) Sodium Lvl [135-145 mEq/L] 190 K/CMM (10/09/18:31 AM) 218 K/CMM (10/07/18:30 PM) Platelet [133-450 K/CMM] 71.1 % (10/09/18 3:31 AM) 79.1 % *HI* (10/07/18 9:30 PM) Segs [45.0-75.0 %] 7.5 g/dL (10/07/18:30 PM) Total Protein [6.4-8.4 g/dL] 13.7 seconds (10/07/18 9:30 PM) PT [12.0-14.7 seconds] 34.1 seconds (10/07/18 9:30 PM) PTT [22.9-35.8 seconds] 4.81 M/CMM (10/09/18 3:31 AM) 5.10 M/CMM (10/07/18 9:30 PM) RBC [4.70-6.10 M/CMM] 12.7 % (10/09/18 3:31 AM) 13.1 % (10/07/18 9:30 PM) RDW [11.5-14.5 %] 0.3 mg/dL (10/07/18 9:30 PM) Bili Total [0.2-1.3 mg/dL] 221 mg/dL *HI* (10/08/18 4:37 AM) Trig [<=149 mg/dL] <0.02 ng/mL (10/08/18 8:58 AM) <0.02 ng/mL (10/08/18 4:37 AM) <0.02 ng/mL (10/07/18 9:30 PM) Troponin-I [0.00-0.40 ng/mL] 14.2 K/CMM *HI* (10/09/18 3:31 AM) 17.8 K/CMM *HI* (10/07/18 9:30 PM) WBC [3.7-10.4 K/CMM] 44 *NA* (10/08/18 4:37 AM) VLDL 1Result Comment: The eGFR is calculated using the CKD-EPI formula. In most young, healthy individuals the eGFR will be >90 mL/min/1.73m2. The eGFR declines with age. An eGFR of 60-89 may be normal in some populations, particularly the elderly, for whom the CKD-EPI formula has not been extensively validated. Use of the eGFR is not recommended in the following populations: Individuals with unstable creatinine concentrations, including patients and those with serious co-morbid conditions. Patients with extremes in muscle mass or diet. The data above are obtained from the National Kidney Disease Education Program ( NKDEP) which additionally recommends that when the eGFR is used in patients with extremes of body mass index for purposes of drug dosing, the eGFR should be mul tiplied by the estimated BMI. 2Result Comment: The eGFR is calculated using the CKD-EPI formula. In most young, healthy individuals the eGFR will be >90 mL/min/1.73m2. The eGFR declines with age. An eGFR of 60-89 may be normal in some populations, particularly the elderly, for whom the CKD-EPI formula has not been extensively validated. Use of the eGFR is not recommended in the following populations: Individuals with unstable creatinine concentrations, including patients and those with serious co-morbid conditions. Patients with extremes in muscle mass or diet. The data above are obtained from the National Kidney Disease Education Program ( NKDEP) which additionally recommends that when the eGFR is used in patients with extremes of body mass index for purposes of drug dosing, the eGFR should be mul tiplied by the estimated BMI. Immunizations No data available for this section Procedures Procedure Date Related Diagnosis Body Site Status Implantation of automatic Completed cardioverter/defibrillator, total syste m (AICD) Social History Social History Type Response Substance Abuse Use: None. Alcohol Never Smoking Status Current every day smoker; T ype: Cigarettes; Previous treatment: None; Ready to change: No; Concerns about tobacco u se in household: No; Exposure to Tobacco Smoke None; Cigarette Smoking L ast 365 Days Yes; Reg Smoking Cessation Counseling Yes; Tobacco use p er day: 25; Number of years: 17; entered on: 10/08/18 Assessment and Plan Extracted from: Title: Clinical Document Author: Marychuy Rehman MD D ate: 10/08/18 DAILY PROGRESS NOTE XPERTMD MARYCHUY REHMAN MD SUBJECTIVE: pt seen and examined, events noted pt is doing ok OBJECTIVE: VitalsTmp(F)[id number] 10/08 20:[id number]--- 10/08 16:[id number]--- 10/08 11:[id number]--- 10/08 07:[id number]--- 10/08 04:[id number]--- 24 Hr Tmax: 98.6F (37.00c) at 10/08 11:4 8Vital Signs are the last 5 in the past 48 hours. GEN: NAD HEENT: NCAT, EOMI, PERRLA, OP-WITHOUT EXUDATE NECK: SUPPLE LUNGS: CTA BILATERALLY HEART: S1 S2, RRR, NO M/G/R ABD : POSITIVE BS, SOFT, NTND EXT: NO C/C/E SKIN: NO RASH, NO LESIONS NEURO: A&OX3 Labs (Last four charted values) WBC H 17.8(OCT 07) Hgb 15.2(OCT 07) Hct 44.8(OCT 07) Plt 218(OCT 07) Na 138(OCT 07) K 3.9(OCT 07) CO2 24(OCT 07) Cl 107(OCT 07) Cr 0.76(OCT 07) BUN 12(OCT 07) Glucose Random 96(OCT 07) Mg 2.1(OCT 07) Ca 8.5(OCT 07) PT 13.7(OCT 07) INR 1.07(OCT 07) PTT 34.1(OCT 07) Troponin <0.02(OCT 08)<0.02(OCT 08)<0.02(OCT 07) Assessment/Plan: Chest pain (R07.9) scrotal swelling Plan: card seen awaiting EP input for the pacemaker site -possible epididymitis -gave one time dose of CTX of 250mg IM a nd placed on doxycycline 100mg po bid for total of 10 days scrotal u/s monitor leukocytosis Prophylaxis per protocol Disposition observation Medications (14) Active Scheduled: (8) RN-Cathy trough reminder on 10/09 @ 12:15 Attn:RN, DILLON, ONCE atorvastatin 10 mg TAB 10 mg 1 tab, PO, Bedtime doxycycline 50 mg CAP 100 mg 2 cap, PO, [id number] metoprolol succinate 25 mg ERT 25 mg 1 tab, PO, Daily miconazole 2% 30 gm TOP CRM 1 appl, TOP, BID ramipril 2.5 mg CAP 2.5 mg 1 cap, PO, Daily sodium chloride 0.9% 10 ml flush syr BD 10 ml, IVP, Q12H vancomycin INJ + sodium chloride 0.9% 250 mL INJ (for IV set) 250 mL 1,250 mg, IVPB, [id number] Continuous: (0) PRN: (6) acetaminophen 325 mg TABLET 650 mg 2 tab, PO, Q4H acetaminophen-codeine 300-30 mg TAB 1 tab, PO, Q6H MORPhine sulfate PF 4 mg/mL INJ VL 4 mg 1 mL, IVP, Q4H nitroglycerin 0.4 mg TAB 25's btl 0.4 mg 1 tab, SL, Q5Min ondansetron 4 mg TAB 4 mg 1 tab, PO, Q8H sodium chloride 0.9% 10 ml flush syr BD 10 ml, IVP, PRN Extracted from: Title: History and Physical Author: Fabiola Alfaro Date: 10/08/18 Chest pain(R07.9) Ordered: Admit/Condition, 10/07/18 23:36:00 CDT, Status: Out Patient with Observation Services, Telemetry Capable Location, Expected LOS: 1 Midnight, Isma Justin MD, Admit MD Review/Approve Yes, Isolation: No Isolation/Standard Precautions, Cellulitis | Chest pain - initial concerns were for surgical site infection, though CT does not show any infectious etiology - complete serial torponin - cardiology and selling specialist consult s ubmitted - started on epiric antibiotics and pain control per protocol observation full code
--- OUTSIDE RECORDS SUMMARY | 2019-09-10 17:52 | XMS REPORT | Summary of Care ---
Author Author [facility] Organization [facility] Address Unknown Phone Unavailable Encounter KELSEA De La Cruz(KAYKAY) [id number] Date(s): 08/28/18 - 08/28/18 [facility] [address] [employer] provided by [facility] [place] [address]- Discharge Disposition: Home or Self Care Attending Physician: Margarito Rivera MD Referring Physician: Margarito Rivera MD Vital Signs 1 2 3 Most recent to oldest [Reference Range]: 162.56 cm (08/28/18 12:47 PM) Height 128/69 mmHg (08/28/18 4:45 PM) 128/69 mmHg (08/28/18 4:30 PM) 126/71 mmHg (08/28/18 4:15 PM) Blood Pressure [90-140/60-90 mmHg] 65.909 kg (08/28/18 12:47 PM) Weight 24.94 m2 (08/28/18 12:47 PM) Body Mass Index Problem List Condition Effective Dates Status Health Status Informan t Cardiomyopathy(Confi Resolved rmed) Allergies, Adverse Reactions, Alerts Substance Reaction Severity Status sulfa drugs Active azithromycin Active aspirin cannot take d/t Von Willebrand disease Active codeine sulfate Codeine Sulfate,15 MG,Oral (systemic),t ablet Active Codeine Sulfate,15 MG,Oral (systemic),t ablet Medications nitroglycerin SL Tab 0.4 mg, 1 tab, Route: SL, Drug form: TAB, Q5Min, Dosing Weight 65.909, kg, PRN C hest Pain, Start date: 08/28/18 15:02:00 CDT, Duration: 3 doses or times, Stop d ate: 08/29/18 0:00:00 CDT Notes: (Same as:Nitroquick, Nitrostat)"Do Not Crush" Sublingual tablet Start Date: 08/28/18 Stop Date: 08/28/18 Status: Discontinued Sodium Chloride 0.9% IV 1,000 mL 1,000 mL, Rate: 75 ml/hr, Infuse over: 13.3 hr, Route: IV, Dosing Weight 65.909 kg, Total Volume: 1,000, Start date: 08/28/18 12:46:00 CDT, Duration: 30 day, St op date: 09/27/18 12:45:00 CDT, 1.74, m2 Start Date: 08/28/18 Stop Date: 08/28/18 Status: Discontinued Sodium Chloride 0.9% IV 400 mL 400 mL, Rate: 20 ml/hr, Infuse over: 20 hr, Route: IV, Dosing Weight 65.909 kg, Total Volume: 400, Start date: 08/28/18 15:04:00 CDT, Duration: 24 hr, Stop date : 08/29/18 15:03:00 CDT, 1.74, m2 Start Date: 08/28/18 Stop Date: 08/28/18 Status: Discontinued tramadol 50 mg, 1 tab, Route: PO, Drug form: TAB, Q6H, Dosing Weight 65.909, kg, PRN Pain Score 1-3, Start date: 08/28/18 15:19:00 CDT, Duration: 30 day, Stop date: 08/31 12/18 15:18:00 CDT Notes: Not to exceed 400mg/day. (Same As: Ultram) Start Date: 08/28/18 Stop Date: 08/28/18 Status: Discontinued Results Most recent to 1 oldest [Reference Range]: Neutrophils # 6.8 K/CMM [1.5-8.1 K/CMM] (08/28/18 1:03 PM) Lymphocytes # 1.8 K/CMM [1.0-5.5 K/CMM] (08/28/18 1:03 PM) Monocytes # [0.0-0.8 0.7 K/CMM K/CMM] (08/28/18 1:03 PM) Eosinophils # 0.1 K/CMM [0.0-0.5 K/CMM] (08/28/18 1:03 PM) Basophils # [0.0-0.2 0.1 K/CMM K/CMM] (08/28/18 1:03 PM) eGFR 116 mL/min/1.73m2 1 *NA* (08/28/18 1:03 PM) ABO/Rh A POS *Unknown* (08/28/18 12:50 PM) Antibody Scrn Negative (08/28/18 12:50 PM) AGAP [10.0-20.0 14.3 mEq/L mEq/L] (08/28/18 1:03 PM) Basophils [0.0-1.0 0.8 % %] (08/28/18 1:03 PM) BUN [7-22 mg/dL] 11 mg/dL (08/28/18 1:03 PM) Calcium Lvl 9.0 mg/dL [8.5-10.5 mg/dL] (08/28/18 1:03 PM) Chloride Lvl [95-109 104 mEq/L mEq/L] (08/28/18 1:03 PM) CO2 [24-32 mEq/L] 24 mEq/L (08/28/18 1:03 PM) Creatinine Lvl 0.83 mg/dL [0.50-1.40 mg/dL] (08/28/18 1:03 PM) Eosinophils [0.0-4.0 1.3 % %] (08/28/18 1:03 PM) Glucose Lvl [70-99 89 mg/dL mg/dL] (08/28/18 1:03 PM) Hct [42.0-54.0 %] 49.0 % (08/28/18 1:03 PM) Hgb [14.0-18.0 g/dL] 16.8 g/dL (08/28/18 1:03 PM) INR [0.85-1.17] 1.23 *HI* (08/28/18 1:03 PM) Potassium Lvl 4.3 mEq/L [3.5-5.1 mEq/L] (08/28/18 1:03 PM) Lymphocytes 18.8 % [20.0-40.0 %] *LOW* (08/28/18 1:03 PM) MCH [27.0-31.0 pg] 30.5 pg (08/28/18 1:03 PM) MCHC [32.0-36.0 34.3 g/dL g/dL] (08/28/18 1:03 PM) MCV [80.0-94.0 fL] 89.0 fL (08/28/18 1:03 PM) Magnesium Lvl 1.9 mg/dL [1.8-2.4 mg/dL] (08/28/18 1:03 PM) Monocytes [2.0-12.0 7.0 % %] (08/28/18 1:03 PM) MPV [7.4-10.4 fL] 9.4 fL (08/28/18 1:03 PM) Sodium Lvl [135-145 138 mEq/L mEq/L] (08/28/18 1:03 PM) Platelet [133-450 246 K/CMM K/CMM] (08/28/18 1:03 PM) Segs [45.0-75.0 %] 72.1 % (08/28/18 1:03 PM) PT [12.0-14.7 15.3 seconds seconds] *HI* (08/28/18 1:03 PM) PTT [22.9-35.8 39.0 seconds seconds] *HI* (08/28/18 1:03 PM) RBC [4.70-6.10 5.51 M/CMM M/CMM] (08/28/18 1:03 PM) RDW [11.5-14.5 %] 13.0 % (08/28/18 1:03 PM) WBC [3.7-10.4 K/CMM] 9.5 K/CMM (08/28/18 1:03 PM) 1Result Comment: The eGFR is calculated using [...] (AICD) Social History Social History Type Response Alcohol Never Smoking Status Current every day smoker; T ype: Cigarettes; Previous treatment: None; Ready to change: No; Concerns about tobacco u se in household: No; Exposure to Tobacco Smoke None; Cigarette Smoking L ast 365 Days Yes; Reg Smoking Cessation Counseling Yes; Tobacco use p er day: 20; Number of years: 17; entered on: 08/28/18 Assessment and Plan No data available for this section
--- OUTSIDE RECORDS SUMMARY | 2019-09-10 17:52 | XMS REPORT | Continuity of Care Document ---
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 Active 07/24/2018 [facility] CCL/LHC W/PCI (R) RADIO Active 07/15/2018 [facility] Cardiomyopathy (disorder) Reso lved Problem [facility] [place] CELLULITIS, UNSPECIFIED Active [facility] CHEST PAIN, UNSPECIFIED Active [facility] MALIGNANT NEOPLASM OF DESCENDED LEFT ABISAI Active [facility] Medications Medication Details Route Status Patient Instructions Ordering Provider Order Date Source RN-Vanco trough reminder on 10/09 @ 12:15 RN- Vanco trough reminder on 10/09 @ 12:15, Attn:JOHNATHON, Drug form: MISC, Route: MISC, ONCE, 10/09/18 11:45:00 CDT, Stop date: 10/09/18 11:45:00 CDT, 0 Inactive 10/09/2018 [facility] Acetaminophen 300 MG / Codeine Phosphate 30 MG Oral Tablet [Tylenol with Codeine #3] 1 tab, PO, Q6H, PRN Pain, X 7 day, # 28 tab, 0 Refill(s) Active 10/09/2018 [facility] Amoxicillin 875 MG / Clavulanate 125 MG Oral Tablet [Augmentin 875-mg] 875 mg = 1 tab, PO, Q12H, X 14 day, # 28 tab, 0 Refill(s), Pharmacy: [facility] [id number] Active 10/09/2018 [facility] Doxycycline Monohydrate 100 MG Oral Capsule 100 mg = 1 cap, PO, Q12H, X 10 day, # 20 cap, 0 Refill(s), Pharmacy: [facility] [id number] Active 10/09/2018 [facility] linezolid Notes: (Same as: Zyv ox) Inactive 10/09/2018 [facility] morphine 0.5 mg/mL preservative-free inj ectable solution 4 mg, Route: IVP, Q4H, Dosing Weight 70. 455, kg, PRN Pain Score 7-10, Start date: 10/08/18 23:11:00 CDT, Duration: 30 day, Stop date: 11/07/18 23:10:00 CDT No Longer Active 10/09/2018 [facility] Morphine Notes: (Same as:MORPh ine Sulfate) No Longer Active 10/09/2018 [facility] atorvastatin Notes: (Same As: Lipitor) No Longer Active 10/09/2018 [facility] morphine Sulfate Notes: (Same as:MORPhine Sulfate) Inactive 10/09/2018 [facility] Doxycycline Notes: (Same as: V ibramycin) No milk/antacids/iron. Take 1 hour before or 2 hours after dairy products No Longer Active 10/08/2018 [facility] Rocephin Notes: (Same As: Roce phin) Inactive 10/08/2018 [facility] Saline Flush 0.9% Notes: (Same as: BD Posiflush) No Longer Active 10/08/2018 [facility] Ramipril Notes: (Same as:Altac e) No Longer Active 10/08/2018 [facility] Miconazole Nitrate 0.02 MG/MG Topical Ointment Notes: (Same as: Monistat Derm, Mication) For external use only. No Longer Active 10/08/2018 [facility] 24 HR Metoprolol Tartrate 25 MG Extended Release Tablet [Toprol] Notes: (Same as: Toprol XL) Do Not Crush No Longer Active 10/08/2018 [facility] Benadryl 25 mg, 1 tab, Route: PO, Drug form: TAB, ONCE, Dosing Weight 70.455, kg, Start date: 10/08/18 3:27:00 CDT, Stop date: 10/08/18 3:27:00 CDT, 0 Inactive 10/08/2018 [facility] Acetaminophen 300 MG / Codeine Phosphate 30 MG Oral Tablet [Tylenol with Codeine #3] Notes: Do not exceed 4gm/day of acetamin ophen. (Same as: Tylenol with Codeine # 3) No Longer Active 10/08/2018 [facility] Vancomycin 1 ea, Route: MISC, ONCALL, Dosing Weight 70.455, kg, Start date: 10/08/18 1:00:00 CDT, Duration: 7 day, Stop date: 10/15/18 0:59:00 CDT, Pharmacy to dose, ABX Indication: Skin/Soft Tissue Infection Inactive 10/08/2018 [facility] vancomycin + Sodium Chloride 0.9% IV 250 mL 2001 mg: infuse over 2.5 hours For adult patients only: Round to nearest 250 mg per Medical Staff approval MEDICATION WASTE Product Size: 1000 mg Product Wasted: ___ mg No Longer Active 10/08/2018 [facility] Saline Flush 0.9% Notes: (Same as: BD Posiflush) No Longer Active 10/08/2018 [facility] Acetaminophen Notes: Do not ex ceed 4 gm/day. (Same as: Tylenol) No Longer Active 10/08/2018 [facility] Ondansetron Notes: (Same as: Harpal torres) No Longer Active 10/08/2018 [facility] Nitroglycerin Notes: (Same as: Nitroquick, Nitrostat) "Do Not Crush" Sublingual tablet No Longer Active 10/08/2018 [facility] Zofran 4 mg, Route: IVP, Drug form: INJ, ONCE, Dosing Weight 70.455, kg, Priority: STAT, Start date: 10/07/18 23:35:00 CDT, Stop date: 10/07/18 23:35:00 CDT Inactive 10/08/2018 [facility] Morphine 4 mg, Route: IVP, ONC E, Dosing Weight 70.455, kg, Priority: STAT, Start date: 10/07/18 23:35:00 CDT, Stop date: 10/07/18 23:35:00 CDT Inactive 10/08/2018 [facility] Tramadol Notes: Not to exceed 400mg/day. (Same As: Ultram) Inactive 08/28/2018 [facility] Sodium Chloride 0.9% IV 400 mL 400 mL, Rate: 20 ml/hr, Infuse over: 20 hr, Route: IV, Dosing Weight 65.909 kg, Total Volume: 400, Start date: 08/28/18 15:04:00 CDT, Duration: 24 hr, Stop date: 08/29/18 15:03:00 CDT, 1.74, m2 Inactive 08/28/2018 [facility] Nitroglycerin Notes: (Same as: Nitroquick, Nitrostat) "Do Not Crush" Sublingual tablet Inactive 08/28/2018 [facility] Sodium Chloride 0.9% IV 1,000 mL 1,000 mL, Rate: 75 ml/hr, Infuse over: 13.3 hr, Route: IV, Dosing Weight 65.909 kg, Total Volume: 1,000, Start date: 08/28/18 12:46:00 CDT, Duration: 30 day, Stop date: 09/27/18 12:45:00 CDT, 1.74, m2 Inactiv e 08/28/2018 [facility] Omnipaque 300 injectable solution Notes: (Same as:Omnipaque 300). WASTE: F/P - Black; E - [employer] Trash Bin Active 07/29/2018 [facility] Allergies, Adverse Reactions, Alerts Substance Category Reaction Severity Reaction type Status Date Reported Comments Source sulfa drugs Assertion Drug allergy Active [facility] azithromycin Assertion Drug allergy Active [facility] aspirin Assertion cannot take d/t Von Willebrand disease Amauri g allergy Active [facility] codeine sulfate Assertion Codeine Sulfate,15 MG,Oral (systemic),tablet, Codeine Sulfate,15 MG,Oral (systemic),tablet Drug allergy Active [facility] erythromycin Assertion Drug allergy Active [facility] vancomycin Assertion Drug allergy Active [facility] Immunizations No Data Provided for This Section Results Order Name Results Value Reference Range Date Interpretation Comments Source ELECTROLYTES AGAP 10.0 10.0 - 20.0 10/09/2018 [facility] ELECTROLYTES CO2 26 24 - 32 10/09/2018 [facility] ELECTROLYTES BUN 15 7 - 22 10/09/2018 [facility] ELECTROLYTES Creatinine Lvl 0.7 8 0.50 - 1.40 10/09/2018 [facility] ELECTROLYTES Calcium Lvl 8.4 8.5 - 10.5 10/09/2018 [facility] ELECTROLYTES Sodium Lvl 136 135 - 145 10/09/2018 [facility] ELECTROLYTES Chloride Lvl 104 95 - 109 10/09/2018 [facility] ELECTROLYTES Potassium Lvl 4.0 3.5 - 5.1 10/09/2018 [facility] ELECTROLYTES eGFR 119 10/09/2018 Result Comment: The eGFR is calculated using the [...] from the National Kidney Disease Education Program (NKDEP) which additionally recommends that when the eGFR is used in patients with extremes of body mass index for purposes of drug dosing, the eGFR should be multiplied by the estimated BMI. [facility] ELECTROLYTES Glucose Lvl 108 70 - 99 10/09/2018 [facility] MCH 30.0 27.0 - 31.0 10/09/2018 [facility] MCV 88.2 80.0 - 94.0 10/09/2018 [facility] MCHC 34.0 32.0 - 36.0 10/09/2018 [facility] Platelet 190 133 - 450 10/09/2018 [facility] RDW 12.7 11.5 - 14.5 10/09/2018 [facility] RBC 4.81 4.70 - 6.10 10/09/2018 [facility] Hct 42.4 42.0 - 54.0 10/09/2018 [facility] Hgb 14.4 14.0 - 18.0 10/09/2018 [facility] MPV 8.9 7.4 - 10.4 10/09/2018 [facility] WBC 14.2 3.7 - 10.4 10/09/2018 [facility] Eosinophils # 0.4 0.0 - 0.5 10/09/2018 [facility] Basophils # 0.1 0.0 - 0.2 10/09/2018 [facility] HEMATOLOGY Lymphocytes # 2.4 1.0 - 5.5 10/09/2018 [facility] HEMATOLOGY Eosinophils 2.8 0.0 - 4.0 10/09/2018 [facility] Basophils 0.5 0.0 - 1.0 10/09/2018 [facility] Monocytes # 1.3 0.0 - 0.8 10/09/2018 [facility] HEMATOLOGY Neutrophils # 10.1 1.5 - 8.1 10/09/2018 [facility] HEMATOLOGY Monocytes 8.8 2.0 - 12.0 10/09/2018 [facility] HEMATOLOGY Lymphocytes 16.8 20.0 - 40.0 10/09/2018 [facility] HEMATOLOGY Segs 71.1 45.0 - 75.0 10/09/2018 [facility] CARDIAC ENZYMES Troponin-I <0.02 0.00 - 0.40 10/08/2018 [facility] CARDIAC ENZYMES Troponin-I <0.02 0.00 - 0.40 10/08/2018 [facility] LIPIDS LDL (Calculated) 113 <=99 mg/dL 10/08/2018 [facility] LIPIDS VLDL 44 10/08/2018 [facility] LIPIDS Trig 221 <=149 mg/dL 10/08/2018 [facility] LIPIDS CHD Risk 6.06 4.00 - 7.30 10/08/2018 [facility] LIPIDS HDL 31 >=61 mg/dL 10/08/2018 [facility] LIPIDS Chol 188 <=199 mg/dL 10/08/2018 [facility] CARDIAC ENZYMES BNP 7 <=100 pg/mL 10/08/2018 [facility] CARDIAC ENZYMES Troponin-I <0.02 0.00 - 0.40 10/08/2018 [facility] CHEM PANEL Lipase Lvl 62 73 - 393 10/08/2018 [facility] CHEM PANEL Magnesium Lvl 2.1 1.8 - 2.4 10/08/2018 [facility] CHEM PANEL B/C Ratio 16 6 - 25 10/08/2018 [facility] CHEM PANEL AGAP 10.9 10.0 - 20.0 10/08/2018 [facility] CHEM PANEL Globulin 3.6 2.7 - 4.2 10/08/2018 [facility] CHEM PANEL A/G Ratio 1.1 0.7 - 1.6 10/08/2018 [facility] CHEM PANEL eGFR 121 10/08/2018 Result Comment: The eGFR is calculated using the [...] from the National Kidney Disease Education Program (NKDEP) which additionally recommends that when the eGFR is used in patients with extremes of body mass index for purposes of drug dosing, the eGFR should be multiplied by the estimated BMI. [facility] CHEM PANEL Alk Phos 55 39 - 136 10/08/2018 [facility] CHEM PANEL Bili Total 0.3 0.2 - 1.3 10/08/2018 [facility] CHEM PANEL Glucose Lvl 96 70 - 99 10/08/2018 [facility] CHEM PANEL ALT 32 0 - 65 10/08/2018 [facility] CHEM PANEL Albumin Lvl 3.9 3.5 - 5.0 10/08/2018 [facility] CHEM PANEL AST 15 0 - 37 10/08/2018 [facility] CHEM PANEL Calcium Lvl 8.5 8.5 - 10.5 10/08/2018 [facility] CHEM PANEL Total Protein 7.5 6.4 - 8.4 10/08/2018 [facility] CHEM PANEL Potassium Lvl 3.9 3.5 - 5.1 10/08/2018 [facility] CHEM PANEL Creatinine Lvl 0.76 0.50 - 1.40 10/08/2018 [facility] CHEM PANEL Sodium Lvl 138 135 - 145 10/08/2018 [facility] CHEM PANEL Chloride Lvl 107 95 - 109 10/08/2018 [facility] CHEM PANEL CO2 24 24 - 32 10/08/2018 [facility] CHEM PANEL BUN 12 7 - 22 10/08/2018 [facility] HEMATOLOGY Basophils # 0.1 0.0 - 0.2 10/08/2018 [facility] HEMATOLOGY Monocytes # 1.0 0.0 - 0.8 10/08/2018 [facility] HEMATOLOGY Lymphocytes # 2.4 1.0 - 5.5 10/08/2018 [facility] HEMATOLOGY Neutrophils # 14.1 1.5 - 8.1 10/08/2018 [facility] HEMATOLOGY Eosinophils # 0.3 0.0 - 0.5 10/08/2018 [facility] HEMATOLOGY Lymphocytes 13.2 20.0 - 40.0 10/08/2018 [facility] HEMATOLOGY Segs 79.1 45.0 - 75.0 10/08/2018 [facility] HEMATOLOGY Monocytes 5.6 2.0 - 12.0 10/08/2018 [facility] HEMATOLOGY Basophils 0.5 0.0 - 1.0 10/08/2018 [facility] HEMATOLOGY Eosinophils 1.6 0.0 - 4.0 10/08/2018 [facility] Hgb 15.2 14.0 - 18.0 10/08/2018 [facility] RBC 5.10 4.70 - 6.10 10/08/2018 [facility] WBC 17.8 3.7 - 10.4 10/08/2018 [facility] MPV 8.9 7.4 - 10.4 10/08/2018 [facility] Hct 44.8 42.0 - 54.0 10/08/2018 [facility] Platelet 218 133 - 450 10/08/2018 [facility] RDW 13.1 11.5 - 14.5 10/08/2018 [facility] MCHC 34.0 32.0 - 36.0 10/08/2018 [facility] MCH 29.8 27.0 - 31.0 10/08/2018 [facility] MCV 87.8 80.0 - 94.0 10/08/2018 [facility] PT 13.7 12.0 - 14.7 10/08/2018 [facility] PTT 34.1 22.9 - 35.8 10/08/2018 [facility] INR 1.07 0.85 - 1.17 10/08/2018 [facility] CHEM PANEL Magnesium Lvl 1.9 1.8 - 2.4 08/28/2018 [facility] CHEM PANEL eGFR 116 08/28/2018 Result Comment: The eGFR is calculated using the [...] from the National Kidney Disease Education Program (NKDEP) which additionally recommends that when the eGFR is used in patients with extremes of body mass index for purposes of drug dosing, the eGFR should be multiplied by the estimated BMI. [facility] CHEM PANEL Calcium Lvl 9.0 8.5 - 10.5 08/28/2018 [facility] CHEM PANEL Potassium Lvl 4.3 3.5 - 5.1 08/28/2018 [facility] CHEM PANEL Sodium Lvl 138 135 - 145 08/28/2018 [facility] CHEM PANEL Chloride Lvl 104 95 - 109 08/28/2018 [facility] CHEM PANEL CO2 24 24 - 32 08/28/2018 [facility] CHEM PANEL Glucose Lvl 89 70 - 99 08/28/2018 [facility] CHEM PANEL Creatinine Lvl 0.83 0.50 - 1.40 08/28/2018 [facility] CHEM PANEL BUN 11 7 - 22 08/28/2018 [facility] CHEM PANEL AGAP 14.3 10.0 - 20.0 08/28/2018 [facility] HEMATOLOGY Basophils # 0.1 0.0 - 0.2 08/28/2018 [facility] HEMATOLOGY Lymphocytes # 1.8 1.0 - 5.5 08/28/2018 [facility] HEMATOLOGY Monocytes # 0.7 0.0 - 0.8 08/28/2018 [facility] HEMATOLOGY Eosinophils # 0.1 0.0 - 0.5 08/28/2018 [facility] HEMATOLOGY Neutrophils # 6.8 1.5 - 8.1 08/28/2018 [facility] HEMATOLOGY Basophils 0.8 0.0 - 1.0 08/28/2018 [facility] HEMATOLOGY Segs 72.1 45.0 - 75.0 08/28/2018 [facility] HEMATOLOGY Lymphocytes 18.8 20.0 - 40.0 08/28/2018 [facility] HEMATOLOGY Eosinophils 1.3 0.0 - 4.0 08/28/2018 [facility] HEMATOLOGY Monocytes 7.0 2.0 - 12.0 08/28/2018 [facility] HEMATOLOGY PT 15.3 12.0 - 14.7 08/28/2018 [facility] HEMATOLOGY PTT 39.0 22.9 - 35.8 08/28/2018 [facility] HEMATOLOGY INR 1.23 0.85 - 1.17 08/28/2018 [facility] HEMATOLOGY MPV 9.4 7.4 - 10.4 08/28/2018 [facility] HEMATOLOGY Platelet 246 133 - 450 08/28/2018 [facility] HEMATOLOGY MCH 30.5 27.0 - 31.0 08/28/2018 [facility] HEMATOLOGY MCV 89.0 80.0 - 94.0 08/28/2018 [facility] HEMATOLOGY MCHC 34.3 32.0 - 36.0 08/28/2018 [facility] HEMATOLOGY Hct 49.0 42.0 - 54.0 08/28/2018 [facility] HEMATOLOGY RBC 5.51 4.70 - 6.10 08/28/2018 [facility] HEMATOLOGY Hgb 16.8 14.0 - 18.0 08/28/2018 [facility] HEMATOLOGY RDW 13.0 11.5 - 14.5 08/28/2018 [facility] HEMATOLOGY WBC 9.5 3.7 - 10.4 08/28/2018 [facility] BLOOD BANK RESULTS Antibody Scrn Negative (08/28/18 12:50 PM) 08/28/2018 [facility] BLOOD BANK RESULTS ABO/Rh A POS 08/28/2018 [facility] CHEM PANEL eGFR 119 07/29/2018 Result Comment: The eGFR is calculated using the [...] from the National Kidney Disease Education Program (NKDEP) which additionally recommends that when the eGFR is used in patients with extremes of body mass index for purposes of drug dosing, the eGFR should be multiplied by the estimated BMI. [facility] CHEM PANEL POC Creatinine 0.8 0.5 - 1.4 07/29/2018 [facility] Pathology Reports No Data Provided for This Section Diagnostic Reports Report Value Date Source Scrotal/Testicle US Study: Scr otal/Testicle US Clinical Indication: - scrotal swelling Comparison: Testicular ultrasound from 07/29/2018 TECHNIQUE: Sonographic evaluation of the scrotum and testes was performed using high resolution B-mode imaging as well as pulse and color Doppler imaging. FINDINGS: TESTES: The right testicle measures 4.7 x 2.2 x 2.9 cm. The left testicle is surgically absent There is normal right testicular contour and morphology. There are no testicular masses or testicular calcifications. The Doppler images of the right testicle show normal blood flow. EPIDIDYMIDES: Diffuse enlargement with heterogeneous echotexture of the right epididymis is seen. SCROTUM: Small right hydrocele is noted. There is no evidence of varicoceles. There is no scrotal edema. IMPRESSION: 1. Diffuse enlargement with heterogeneou s echotexture of the right epididymis, highly suspicious for epididymitis. 2. Small right hydrocele. 3. Stable changes of prior left orchiect catracho. SL: SLEE-PC 10/08/2018 [facility] Chest wo contrast CT STUDY: [facility] wo contrast CT 10/08/2018 12:47 AM CDT Ordering Physician: Fabiola Alfaro MD Patient Name: HOLLIE NGUYEN MR: [id number] : 1985; Age: 33 years y/o Male Clinical Indication: - s/p AICD. swelling and pain at the ICD site Comparison: None TECHNIQUE: Multiple contiguous transaxial noncontrast CT images were obtained through the chest. Sagittal and coronal reformatted images were prepared. CT imaging performed at this location utilizes radiation dose optimization techniques which include one or more of the following: -Automated exposure control -Adjustment of the mA and/or kV accordin g to patient size -Use of iterative reconstruction techniq ue DLP: 359.36 mGy-cm FINDINGS: LUNGS: Mildly hyperinflated lungs associated with minimal dependent subsegmental atelectasis in the lung bases, but without consolidation, pleural effusion, or pneumothorax. AIRWAY: Clear central tracheobronchial tree. HEART: Normal size heart associated with a left subclavian dual-lead pacemaker and trace pericardial effusion. The soft tissues near the pacemaker generator are obscured by streak and beam hardening artifact without definitive fluid collection or hematoma. THORACIC AORTA: Normal caliber nonopacified thoracic aorta. PULMONARY ARTERIES: Nonopacified. MEDIASTINUM AND JASEN: No hilar or mediastinal lymphadenopathy. VISUALIZED UPPER ABDOMEN: Cholecystectomy associated with mild central biliary prominence likely physiological in nature. Small 1.7 cm low-attenuation lesion at 24 Hounsfield units in the right mid renal pole most consistent with a cyst. SOFT TISSUES: No suspicious soft tissue lesion or abnormality. OSSEOUS STRUCTURES: Mild spinal degenerative change without fracture, dislocation, or focal osseous lesion. IMPRESSION: 1. Normal size heart status post pacema ker insertion without definitive fluid collection or hematoma near the pacemaker generator after accounting for limitations from artifact. Follow-up ultrasound may be helpful. 2. Normal size heart associated with tr melisa pericardial effusion. 3. Cholecystectomy. 4. Right renal cyst. 5. Hyperinflated but clear lungs. SL: PANCHOINTER-PC 10/08/2018 [facility] Chest 1view DX Clinical Indica tion: Chest pain with left arm tingling. Comparison: None FINDINGS: AP view of the chest submitted for interpretation. Lungs are clear. Heart size is normal. Automatic implantable cardiac defibrillator leads terminate in the right atrium and right ventricle. Central pulmonary vasculature appears normal. No effusion. No pneumothorax. No radiographically apparent acute osseous abnormality. IMPRESSION: 1. No radiographically apparent acute ca rdiopulmonary process. SL: [id number] 10/07/2018 [facility] Scrotal/Testicle w Doppler US Clinical Indication: - pain; Comparison: None TECHNIQUE: Sonographic evaluation of the scrotum and testes was performed using high resolution B-mode imaging as well as pulse and color Doppler imaging. FINDINGS: TESTES: The right testicle measures 5.1 x 1.9 x 2.7 cm. The left testicle is not visualized (prior orchiectomy). There is normal right testicular contour and morphology. There are no testicular masses or testicular calcifications. The Doppler images of the right testicle show normal blood flow. EPIDIDYMIDES: Right epididymal head, body and tail regions are unremarkable. The right epididymal head measures 1.5 x 1 x 1 cm. SCROTUM: There is no hydrocele. There is no evidence of varicoceles. There is no scrotal edema. IMPRESSION: 1. Unremarkable right testicular ultras ound with normal testicular Doppler blood flow. 2. Nonvisualization of the left testicle (prior orchiectomy). 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 imaging performed at this location utilizes radiation dose optimization techniques which include one or more of the following: -Automated exposure control -Adjustment of the mA and/or kV accordin g to patient size -Use of iterative reconstruction MovieLaLa ue CT Radiation Dose DLP 555 mGy-cm FINDINGS: There is very poor contrast enhancement. The CT department was notified and was instructed to contact the patient to assess the injection site for possible extravasation. The lung bases are clear. The liver is normal in size and unremarkable. Cholecystectomy has been performed. Common duct is not dilated. The spleen appears normal. Small accessory spleen is noted. The minimally enhanced kidneys are unremarkable for a small right cortical cyst and a 3 mm nonobstructing calculus in each kidney. The adrenals and pancreas are normal. There is a small fat-containing umbilical hernia. Appendectomy has been performed. No intestinal lesion is identified. Unenhanced urinary bladder and prostate gland are not remarkable. No adenopathy or ascites is seen. IMPRESSION: 1. Poor contrast enhancement. 2. No metastatic disease 3. Cholecystectomy and appendectomy. 4. Small bilateral renal calculi. SL: [id number] 07/29/2018 [facility] Consultation Notes No Data Provided for This Section Discharge Summaries No Data Provided for This Section History and Physicals No Data Provided for This Section Vital Signs Vital Sign Value Date Comments Source Heart Rate 57 10/09/2018 [facility] Respitory Rate 16 10/09/2018 [facility] Systolic (mm Hg) 117 10/09/2018 [facility] Diastolic (mm Hg) 74 10/09/2018 [facility] Temperature Oral (F) 98.1 F 10/09/2018 [facility] Systolic (mm Hg) 137 10/09/2018 [facility] Diastolic (mm Hg) 56 10/09/2018 [facility] Respitory Rate 16 10/09/2018 [facility] Heart Rate 58 10/09/2018 [facility] Temperature Oral (F) 97.5 F 10/09/2018 [facility] Temperature Oral (F) 98.4 F 10/09/2018 [facility] Respitory Rate 16 10/09/2018 [facility] Systolic (mm Hg) 123 10/09/2018 [facility] Diastolic (mm Hg) 70 10/09/2018 [facility] Heart Rate 60 10/09/2018 [facility] BMI Calculated 25.85 10/08/2018 [facility] Weight 70.455 10/08/2018 [facility] Height 165.1 cm 10/08/2018 [facility] [facility] BMI Calculated 25.85 10/08/2018 [facility] BMI Calculated 25.85 10/08/2018 [facility] Weight 70.455 10/08/2018 [facility] Height 165.1 cm 10/08/2018 [facility] Weight 70.455 10/08/2018 [facility] Height 165.1 cm 10/08/2018 [facility] Systolic (mm Hg) 128 08/28/2018 [facility] Diastolic (mm Hg) 69 08/28/2018 [facility] Systolic (mm Hg) 128 08/28/2018 [facility] Diastolic (mm Hg) 69 08/28/2018 [facility] Systolic (mm Hg) 126 08/28/2018 [facility] Diastolic (mm Hg) 71 08/28/2018 [facility] Weight 65.909 08/28/2018 [facility] Height 162.56 cm 08/28/2018 [facility] BMI Calculated 24.94 08/28/2018 [facility] Encounters Location Location Details Encounter Type Encounter Number Reason For Visit Attending Provider ADM Date DC Date Status Source [facility] Outpatient [id number] Getachew Cabrales 07/29/2018 07/30/2018 [facility] Outpatient [id number] Benjamin Noa 08/04/2018 Active [facility] [place]Reg [id number] [facility] 08/04/2018 08/04/2018 [facility] Outpatient [id number] Margarito Rivera 08/28/2018 08/28/2018 [facility] Observation [id number] Celio Juarez 10/08/2018 10/09/2018 [facility] Outpatient [id number] Mansoor Dhaliwal 10/29/2018 Active [facility] Procedures Procedure Code Date Perfomer Comments Source Implantation of automatic cardioverter/d efibrillator, total system (AICD) [id number] Medical [facility] Assessment and Plan Assessment and Plan Date Source Extracted from:Title: Clinical Document Author: Marychuy Rehman MD Date: 10/08/18 DAILY PROGRESS NOTE XPERTMD MARYCHUY REHMAN MD SUBJECTIVE: pt seen and examined, events noted pt is doing ok OBJECTIVE: Vitals Tmp(F) Pulse BP RR SpO2 FIO2 10/08 20:14 98.5 60 137/64 1 8 100 --- 10/08 16:04 98.3 61 135/73 1 7 100 --- 10/08 11:48 98.6 61 114/73 1 7 98 --- 10/08 07:11 98.0 60 123/81 1 7 96 --- 10/08 04:17 97.9 60 113/66 1 7 96 --- 24 Hr Tmax: 98.6F (37.00c) at 10/08 11:4 8 Vital Signs are the last 5 in the past 48 hours. GEN: NAD HEENT: NCAT, EOMI, PERRLA, OP-WITHOUT EXUDATE NECK: SUPPLE LUNGS: CTA BILATERALLY HEART: S1 S2, RRR, NO M/G/R ABD : POSITIVE BS, SOFT, NTND EXT: NO C/C/E SKIN: NO RASH, NO LESIONS NEURO: A&OX3 Labs (Last four charted values) WBC H 17.8 (OCT 07) Hgb 15.2 (OCT 07) Hct 44.8 (OCT 07) Plt 218 (OCT 07) Na 138 (OCT 07) K 3.9 (OCT 07) CO2 24 (OCT 07) Cl 107 (OCT 07) Cr 0.76 (OCT 07) BUN 12 (OCT 07) Glucose Random 96 (OCT 07) Mg 2.1 (OCT 07) Ca 8.5 (OCT 07) PT 13.7 (OCT 07) INR 1.07 (OCT 07) PTT 34.1 (OCT 07) Troponin <0.02 (OCT 08) <0.02 (OCT 08) <0.02 (OCT 07) Assessment/Plan: Chest pain (R07.9) scrotal swelling Plan: card seen awaiting EP input for the pacemaker site -possible epididymitis -gave one time dose of CTX of 250mg IM a nd placed on doxycycline 100mg po bid for total of 10 days scrotal u/s monitor leukocytosis Prophylaxis per protocol Disposition observation Medications (14) Active Scheduled: (8) RN-Ctahy trough reminder on 10/09 @ 12:15 Attn:RNDILLON, ONCE atorvastatin 10 mg TAB 10 mg 1 tab, PO, Bedtime doxycycline 50 mg CAP 100 mg 2 cap, PO, [id number] metoprolol succinate 25 mg ERT 25 mg 1 tab, PO, Daily miconazole 2% 30 gm TOP CRM 1 appl, TOP, BID ramipril 2.5 mg CAP 2.5 mg 1 cap, PO, Daily sodium chloride 0.9% 10 ml flush syr BD 10 ml, IVP, Q12H vancomycin INJ + sodium chloride 0.9% 250 mL INJ (for IV set) 250 mL 1,250 mg, IVPB, [id number] Continuous: (0) PRN: (6) acetaminophen 325 mg [...] syr BD 10 ml, IVP, PRN Extracted from:Title: History and Physical Author: Fabiola Alfaro MD Date: 10/08/18 Chest pain(R07.9) Ordered: Admit/Condition, 10/07/18 23:36:00 CDT, Status: Out Patient with Observation Services, Telemetry Capable Location, Expected LOS: 1 Midnight, Isma Justin MD, Admit MD Review/Approve Yes, Isolation: No Isolation/Standard Precautions, Cellulitis | Chest pain - initial concerns were for surgical site infection, though CT does not show any infectious etiology - complete serial torponin - cardiology and museum specialist consult s ubmitted - started on epiric antibiotics and pain control per protocol observation full code 10/09/2018 [facility] Plan of Care No Data Provided for This Section Social History Social History Date Source Social History TypeResponse Substance Abuse Use: None. Alcohol Never Smoking Status Current every day smoker; Type: Cigarettes; Previous treatment: None; Ready to change: No; Concerns about tobacco use in household: No; Exposure to Tobacco Smoke None; Cigarette Smoking Last 365 Days Yes; Reg Smoking Cessation Counseling Yes; Tobacco use per day: 25; Number of years: 17; entered on: 10/08/18 10/08/2018 [facility] Social History TypeResponse Alcohol Never Smoking Status Current every day smoker; Type: Cigarettes; Previous treatment: None; Ready to change: No; Concerns about tobacco use in household: No; Exposure to Tobacco Smoke None; Cigarette Smoking Last 365 Days Yes; Reg Smoking Cessation Counseling Yes; Tobacco use per day: 20; Number of years: 17; entered on: 07/01/18 07/01/2018 [facility] Social History TypeResponse Alcohol Never Smoking Status Current every day smoker; Type: Cigarettes; Previous treatment: None; Ready to change: No; Concerns about tobacco use in household: No; Exposure to Tobacco Smoke None; Cigarette Smoking Last 365 Days Yes; Reg Smoking Cessation Counseling Yes; Tobacco use per day: 20; Number of years: 17; entered on: 08/28/18 07/01/2018 [facility] Family History No Data Provided for This Section Advance Directives No Data Provided for This Section Functional Status No Data Provided for This Section
--- OUTSIDE RECORDS SUMMARY | 2019-09-10 17:52 | XMS REPORT | Summary of Care ---
Author Author [facility] Organization [facility] Address Unknown Phone Unavailable Encounter HQ Jono(FIN) [id number] Date(s): 08/04/18 - 08/04/18 [facility] [place] [address] [place] [address]- 2 [phone] Attending Physician: Benjamin Latham MD Vital Signs No data available for this section Problem List No data available for this section Allergies, Adverse Reactions, Alerts Substance Reaction Severity Status sulfa drugs Active azithromycin Active aspirin cannot take d/t Von Willebrand disease Active codeine sulfate Codeine Sulfate,15 MG,Oral (systemic),t ablet Active Codeine Sulfate,15 MG,Oral (systemic),t ablet Medications No data available for this section Results No data available for this section Immunizations No data available for this section [...] Number of years: 17; entered on: 07/01/18 Assessment and Plan No data available for this section
--- OUTSIDE RECORDS SUMMARY | 2019-09-10 17:52 | XMS REPORT | Summary of Care ---
Author Author [facility] Organization [facility] Address Unknown Phone Unavailable Encounter KELSEA De La Cruz(KAYKAY) [id number] Date(s): 07/29/18 - 07/29/18 [facility] [address] [place] [address]- [phone] Discharge Disposition: Home or Self Care Attending Physician: Getachew Cabrales MD Referring Physician: Getachew Cabrales MD Vital Signs No data available for this section Problem List No data available for this section Allergies, Adverse Reactions, Alerts Substance Reaction Severity Status sulfa drugs Active azithromycin Active aspirin cannot take d/t Von Willebrand disease Active codeine sulfate Codeine Sulfate,15 MG,Oral (systemic),t ablet Active Codeine Sulfate,15 MG,Oral (systemic),t ablet Medications Omnipaque 300 injectable solution 100 mL, Route: IV, Drug Form: SOLN, Dosing Weight 66.506, kg, ONCALL, GFR > 45 mL/min, Start date: 07/29/18 15:00:00 CDT, Duration: 1 doses or times Notes: (Same as:Omnipaque 300).WASTE: F/P - Black; E - Municipal Trash Bin Start Date: 07/29/18 Status: Ordered Results Most recent to 1 oldest [Reference Range]: eGFR 119 mL/min/1.73m2 1 *NA* (07/29/18 12:44 PM) POC Creatinine 0.8 mg/dL [0.5-1.4 mg/dL] (07/29/18 12:44 PM) 1Result Comment: The eGFR is calculated [...]
[2019-09-10] MEDS ORDERED: MORPHINE SULFATE INJ 4 MG/ML INJ 1ML IV STA (18:07)
[2019-09-10] MEDS ORDERED: ONDANSETRON HCL INJ 2MG/ML 2ML 2 MG/ML VIAL IV STA (18:07)
[2019-09-10] MEDS ORDERED: SODIUM CHLORIDE 0.9% 1000ML 1,000 ML IV STA (18:07)
[2019-09-10 18:42] LABS: BASOPHILS # (AUTO) 0.1 (0.0-0.1); BASOPHILS % 0.7 % (0.0-1.0); EOSINOPHILS # (AUTO) 0.3 (0.0-0.4); EOSINOPHILS % 2.6 % (0.0-6.0); HEMATOCRIT 41.3 % (38.2-49.6); HEMOGLOBIN 13.7 g/dL (14.0-18.0); LYMPHOCYTES # (AUTO) 2.6 (1.0-3.2); LYMPHOCYTES % 25.4 % (18.0-39.1); MEAN CORPUSCULAR HEMOGLOBIN 29.9 pg (28-32); MEAN CORPUSCULAR HGB CONC 33.2 g/dL (31-35); MEAN CORPUSCULAR VOLUME 90.2 fL (81-99); MONOCYTES # (AUTO) 0.9 (0.2-0.8); MONOCYTES % 9.2 % (4.4-11.3); NEUTROPHILS # (AUTO) 6.3 (2.1-6.9); NEUTROPHILS % 61.6 % (38.7-80.0); PLATELET COUNT 266 x10e3/uL (140-360); RED BLOOD COUNT 4.58 x10e6/uL (4.3-5.7)
[2019-09-10 18:56] LABS: INR 0.95; PROTHROMBIN TIME 13.2 seconds (11.9-14.5)
[2019-09-10 18:57] LABS: PARTIAL THROMBOPLASTIN TIME 30.9 seconds (23.8-35.5)
[2019-09-10 19:08] LABS: ALANINE AMINOTRANSFERASE 22 IU/L (0-55); ALBUMIN 3.7 g/dL (3.5-5.0); ALBUMIN/GLOBULIN RATIO 1.2 (0.8-2.0); ALKALINE PHOSPHATASE 54 IU/L (40-150); ANION GAP 13.6 mmol/L (8-16); BLOOD UREA NITROGEN 8 mg/dL (7-26); BUN/CREATININE RATIO 10 (6-25); CALCIUM 8.7 mg/dL (8.4-10.2); CARBON DIOXIDE 23 mmol/L (22-29); CHLORIDE 107 mmol/L (98-107); CREATININE, SERUM 0.79 mg/dL (0.72-1.25); EST GLOMERULAR FILTRATION RATE > 60 ML/MIN (60-); GLUCOSE 92 mg/dL (74-118); POTASSIUM 3.6 mmol/L (3.5-5.1); SODIUM 140 mmol/L (136-145)
--- NOTE | 2019-09-10 20:23 | Diagnostic Imaging Report ---
EXAM: CT Abdomen and Pelvis WITH contrast INDICATION: ^S/P PELVIC MASS BX, ABD PAIN/DISTENSION ^[id number] ^[id number] COMPARISON: CT abdomen/pelvis, 07/14/2019; images from CT-guided left retroperitoneal biopsy, 09/10/2019 TECHNIQUE: Abdomen and pelvis were scanned utilizing a multidetector helical scanner from the lung base to the pubic symphysis after administration of IV contrast. Coronal and sagittal reformations were obtained. Routine protocol was performed. Scan was performed when during portal venous phase. Dose modulation, iterative reconstruction, and/or weight based adjustment of the mA/kV was utilized to reduce the radiation dose to as low as reasonably achievable. IV CONTRAST: 100 mL of Isovue-370 ORAL CONTRAST: None RADIATION DOSE: Total DLP: 488.47 mGy*cm Estimated effective dose: (DLP x 0.015 x size factor) mSv COMPLICATIONS: None FINDINGS: LINES and TUBES: Intracardiac leads extending toward the right atrium and to the right ventricular apex. LOWER THORAX: Lung bases are clear with mild dependent lower lobe atelectasis. Heart size normal with no pericardial effusion. Small hiatus hernia. HEPATOBILIARY: No focal hepatic lesions. No biliary ductal dilation. GALLBLADDER: Surgical absence of the gallbladder with cholecystectomy clips. SPLEEN: No splenomegaly. Rounded density adjacent to the posterior spleen compatible with splenule. PANCREAS: No focal masses or ductal dilatation. ADRENALS: No adrenal nodules KIDNEYS/URETERS: Kidneys enhance symmetrically. No hydronephrosis. No cystic or solid mass lesions. Again noted are 4 mm nonobstructing bilateral intrarenal calculi. GI TRACT: No abnormal distention, wall thickening, or evidence of bowel obstruction. Sigmoid diverticulosis with no CT evidence for acute diverticulitis. Surgical clips or sutures adjacent to the cecal pole compatible with post appendectomy change. There are several mildly distended fluid-filled small bowel loops in the central and left mid abdomen with no evidence for bowel dilatation proximally or distally. This may represent mild ileus. PELVIC ORGANS/BLADDER: Urinary bladder has an unremarkable appearance. No discrete abnormal mass or fluid collection in the pelvis. There is a surgical clip anterior to the rectosigmoid junction. LYMPH NODES: No dominant lymph node mass is seen in the abdomen or pelvis. Again noted is a 2.2 cm soft tissue mass anterolateral to the left psoas. There are foci of air in the adjacent fat compatible with recent biopsy in this area. VESSELS: Abdominal aorta, IVC and portal system appear unremarkable. Celiac, SMA and ESTEBAN are patent. PERITONEUM / RETROPERITONEUM: No pneumoperitoneum or ascites. BONES: No acute or suspicious bony lesions. Schmorl's nodes are seen at multiple levels in the spine. 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 SOFT TISSUES: Superficial surrounding soft tissue unremarkable. There is minimal subcutaneous stranding over the left pelvis at the site of biopsy earlier in the day. No subcutaneous collection is seen. IMPRESSION: 1. No pneumoperitoneum or evidence for hemoperitoneum. The soft tissue mass adjacent to the left psoas remains well-defined with no evidence for adjacent hematoma. There are adjacent foci of soft tissue air and minimal stranding in the adjacent fat consistent with recent biopsy. 2. Fluid-filled mildly distended small bowel loops are seen in the central and left abdomen likely representing localized ileus. 3. Small nonobstructing bilateral intrarenal calculi are again seen. Staff: Fannie Signed by: Dr. Ravi Greco M.D. on 09/10/2019 8:19 PM
[2019-09-10] MEDS ORDERED: IOPAMIDOL 370 MG/ML 200 ML INFUS..BTL INJ ONE (20:26)
[2019-09-10] MEDS ORDERED: SODIUM CHLORIDE 0.9% 50ML 50 ML ONE (20:26)
--- NOTE | 2019-09-10 20:27 | Emergency Department Note ---
History of Present Illnes History of Present Illness Chief Complaint: General Medicine Complaints History of Present Illness This is a 34 year old male PATIENT IN FROM HOME WITH COMPLAINTS OF SWELLING AND PAIN AFTER A BIOPSY OF PELVIC MASS; PATIENT STATES HE WAS SENT HOME AT 1600 AND NOW HAS PAIN RATED 7/10, AND ABDOMINAL DISTENTION, DENIES NAUSEA OR VOMITING. Historian: Patient Arrival Mode: Car Onset (how long ago): hour(s) (1) Location: ABD Quality: PAIN Radiation: Reports non-radiation Severity: severe Onset quality: gradual Timing of current episode: constant Progression: worsening Chronicity: new Context: Denies recent illness Relieving factors: none Exacerbating factors: none Associated symptoms: Reports denies other symptoms Treatments prior to arrival: none (RADHA DESHPANDE MD) Past Medical/Family History Physician Review I have reviewed the patient's past medical and family history. Any updates have been documented here. (RADHA DESHPANDE MD) Past Medical History Recent Fever: No Clinical Suspicion of Infectio: No New/Unexplained Change in Ment: No Past Medical History: Hypertension, MD, Cancer, Hyperlipedemia Other Medical History: COLON CA, TESTICULAR CA, CARDIOMYOPATHY, HIGH CHOLESTEROL, VON WILLEBRAND DZ Past Surgical History: Appendectomy, Pacer/AICD Other Surgery: STRICTURE SURG, COLON AND TESTICULAR CA SURG. DEFIBULATOR FOR CARDIOMYOPATHY (RADHA DESHPANDE MD) Social History Smoking Cessation: Current every day smoker Counseling Performed: Yes Alcohol Use: Occasional Any Illegal Drug Use: No TB Exposure/Symptoms: No Physically hurt or threatened: No (RADHA DESHPANDE MD) Family History Family history of heart diseas: No (RADHA DESHPANDE MD) Other Last Tetanus: UNKNOWN Any Pre-Existing Lines (PICC,: No Is patient up to date on immun: Yes Last Flu: YES Last Pneumovax: YES (RADHA DESHPANDE MD) Review of Systems Review of Systems Constitutional: Reports no symptoms EENTM: Reports no symptoms Cardiovascular: Reports no symptoms Respiratory: Reports no symptoms Gastrointestinal: Reports abdominal pain Genitourinary: Reports no symptoms Musculoskeletal: Reports no symptoms Integumentary: Reports no symptoms Neurological: Reports no symptoms Psychological: Reports no symptoms Endocrine: Reports no symptoms Hematological/Lymphatic: Reports no symptoms (RADHA DESHPANDE MD) Physical Exam Related Data Allergies: Coded Allergies: erythromycin base (Verified Allergy, Severe, 09/10/19) Sulfa (Sulfonamide Antibiotics) (Verified Allergy, Intermediate, 09/10/19) Triage Vital Signs Vital Signs Date Time Temp Pulse Resp B/P (MAP) Pulse Ox O2 Delivery O2 Flow Rate FiO2 09/10/19 17:51 98.7 85 20 167/107 97 (RADHA DESHPANDE MD) Physical Exam CONSTITUTIONAL Constitutional: Reports well-developed, Reports well-nourished HENT HENT: Reports normocephalic, Reports atraumatic, Reports oropharynx clear/moist, Reports nose normal HENT L/R: Reports left ext ear normal, Reports right ext ear normal EYES Eyes: Reports PERRL, Reports conjunctivae normal NECK Neck: Reports ROM normal PULMONARY Pulmonary: Reports effort normal, Reports breath sounds normal CARDIOVASCULAR Cardiovascular: Reports regular rhythm, Reports heart sounds normal, Reports capillary refill normal, Reports normal rate GASTROINTESTINAL Abdominal: Reports soft, Reports distension (MILD DISTENSION), Reports tender (MOD TENDERNESS LLQ WITHOUT R/G); Denies guarding, Denies rebound, Denies left CVA tenderness, Denies right CVA tenderness; Reports other (LEFT LOWER LATERAL SITE OF BX LOOKS GOOD, NOT BLEEDING, BOWEL SOUNDS HIGH-PITCHED) GENITOURINARY Genitourinary: Reports exam deferred SKIN Skin: Reports warm, Reports dry MUSCULOSKELETAL Musculoskeletal: Reports ROM normal NEUROLOGICAL Neurological: Reports alert, Reports oriented x 3, Reports no gross motor or sensory deficits PSYCHOLOGICAL Psychological: Reports mood/affect normal, Reports judgement normal (RADHA DESHPANDE MD) Results Laboratory Result Diagram: 09/10/19182909/10/19 1830 Laboratory Laboratory Tests Test 09/10/19 18:30 White Blood Count 10.14 x10e3/uL (4.8-10.8) Red Blood Count 4.58 x10e6/uL (4.3-5.7) Hemoglobin 13.7 g/dL (14.0-18.0) Hematocrit 41.3 % (38.2-49.6) Mean Corpuscular Volume 90.2 fL (81-99) Mean Corpuscular Hemoglobin 29.9 pg (28-32) Mean Corpuscular Hemoglobin Concent 33.2 g/dL (31-35) Red Cell Distribution Width 12.0 % (11.7-14.4) Platelet Count 266 x10e3/uL (140-360) Neutrophils (%) (Auto) 61.6 % (38.7-80.0) Lymphocytes (%) (Auto) 25.4 % (18.0-39.1) Monocytes (%) (Auto) 9.2 % (4.4-11.3) Eosinophils (%) (Auto) 2.6 % (0.0-6.0) Basophils (%) (Auto) 0.7 % (0.0-1.0) Neutrophils # (Auto) 6.3 (2.1-6.9) Lymphocytes # (Auto) 2.6 (1.0-3.2) Monocytes # (Auto) 0.9 (0.2-0.8) Eosinophils # (Auto) 0.3 (0.0-0.4) Basophils # (Auto) 0.1 (0.0-0.1) Absolute Immature Granulocyte (auto 0.05 x10e3/uL (0-0.1) Prothrombin Time 13.2 seconds (11.9-14.5) Prothromb Time International Ratio 0.95 Activated Partial Thromboplast Time 30.9 seconds (23.8-35.5) Sodium Level 140 mmol/L (136-145) Potassium Level 3.6 mmol/L (3.5-5.1) Chloride Level 107 mmol/L (98-107) Carbon Dioxide Level 23 mmol/L (22-29) Anion Gap 13.6 mmol/L (8-16) Blood Urea Nitrogen 8 mg/dL (7-26) Creatinine 0.79 mg/dL (0.72-1.25) Estimat Glomerular Filtration Rate > 60 ML/MIN (60-) BUN/Creatinine Ratio 10 (6-25) Glucose Level 92 mg/dL (74-118) Calcium Level 8.7 mg/dL (8.4-10.2) Total Bilirubin 0.3 mg/dL (0.2-1.2) Aspartate Amino Transf (AST/SGOT) 15 IU/L (5-34) Alanine Aminotransferase (ALT/SGPT) 22 IU/L (0-55) Alkaline Phosphatase 54 IU/L (40-150) Total Protein 6.7 g/dL (6.5-8.1) Albumin 3.7 g/dL (3.5-5.0) Globulin 3.0 g/dL (2.3-3.5) Albumin/Globulin Ratio 1.2 (0.8-2.0) (RADHA DESHPANDE MD) Lab results reviewed: Yes (LINDA RYDER MD) Imaging Imaging results reviewed: Yes Impressions ct abd/pelvis IMPRESSION: 1. No pneumoperitoneum or evidence for hemoperitoneum. The soft tissue mass adjacent to the left psoas remains well-defined with no evidence for adjacent hematoma. There are adjacent foci of soft tissue air and minimal stranding in the adjacent fat consistent with recent biopsy. 2. Fluid-filled mildly distended small bowel loops are seen in the central and left abdomen likely representing localized ileus. 3. Small nonobstructing bilateral intrarenal calculi are again seen. Staff: Strax (LINDA RYDER MD) Assessment & Plan Medical Decision Making MDM S/P BX LEFT RETROPERITONEAL - CHECK CBC, CHEM, PT/PTT, T&S, CT ABD/PELVIS - R/O BLEEDING FROM BX OR BOWEL PERFORATION (RADHA DESHPANDE MD) Reassessment Reassessment REPORT TO DR RYDER TO F/U LABS, CT (RADHA DESHPANDE MD) Reassessment belly tender to palpation, high putched bowel sounds. pt found to have ileus on ct abd/pelvis, no bleeding from biopsy noted, pt will be placed in obs, i spoke with dr phelps (LINDA RYDER MD) Assessment & Plan Final Impression: (1) Abdominal pain (2) Ileus (LINDA RYDER MD) Last Vital Signs Date Time Temp Pulse Resp B/P (MAP) Pulse Ox O2 Delivery O2 Flow Rate FiO2 09/10/19 18:43 71 21 167/99 99 09/10/19 17:51 98.7 (RADHA DESHPANDE MD) Home Meds Reported Medications Pantoprazole Sodium* (PROTONIX) 40 Mg Tablet.dr, 40 MG PO DAILY, TAB 07/17/19 Tramadol Hcl (ULTRAM) 50 Mg Tablet, 50 MG PO PRN, TAB 07/15/19 Atorvastatin Calcium (ATORVASTATIN CALCIUM) 10 Mg Tablet, 10 MG PO 2100, #30 TAB 20 Ramipril (RAMIPRIL) 5 Mg Capsule, 5 MG PO HS, #30 TAB 20 Metoprolol Succinate (METOPROLOL SUCCINATE) 50 Mg Tab.er.24h, 25 MG PO HS, MG 4/15/20 Medications in the ED Morphine Sulfate 4 mg ONCE STAT IV Last administered on 09/10/19at 18:41; Admin Dose 4 MG; Start 09/10/19 at 18:07; Stop 09/10/19 at 18:16; Status DC Ondansetron HCl 4 mg ONCE STAT IV Last administered on 09/10/19at 18:41; Admin Dose 4 MG; Start 09/10/19 at 18:07; Stop 09/10/19 at 18:16; Status DC Sodium Chloride 1,000 ml @ 0 mls/hr Q0M STAT IV Last administered on 09/10/19at 18:41; Admin Dose 1,000 MLS/HR; Start 09/10/19 at 18:07; Stop 09/10/19 at 18:11; Status DC (RADHA DESHPANDE MD) RADHA DESHPANDE MD Sep 10, 2019 20:27 LINDA RYDER MD Sep 10, 2019 20:32
[2019-09-10] MEDS ORDERED: KETOROLAC TROMETHAMINE 30 MG/ML VIAL IV PRN (20:45)
[2019-09-10] MEDS ORDERED: ONDANSETRON HCL INJ 2MG/ML 2ML 2 MG/ML VIAL IV PRN (20:45)
--- OUTSIDE RECORDS SUMMARY | 2019-09-10 21:03 | XMS REPORT | Continuity of Care Document ---
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 Active 07/24/2018 [facility] CCL/LHC W/PCI (R) RADIO Active 07/15/2018 [facility] Cardiomyopathy (disorder) Reso lved Problem [facility] CELLULITIS, UNSPECIFIED Active [facility] CHEST PAIN, UNSPECIFIED Active [facility] MALIGNANT NEOPLASM OF DESCENDED LEFT ABISAI Active [facility] Medications Medication Details Route Status Patient Instructions Ordering Provider Order Date Source RN-Vanco trough reminder on 10/09 @ 12:15 RN- Vanco trough reminder on 10/09 @ 12:15, Attn:JOHNATHON, Drug form: MISC, Route: MISC, ONCE, 10/09/18 11:45:00 CDT, Stop date: 10/09/18 11:45:00 CDT, 0 Inactive 10/09/2018 [facility] Acetaminophen 300 MG / Codeine Phosphate 30 MG Oral Tablet [Tylenol with Codeine #3] 1 tab, PO, Q6H, PRN Pain, X 7 day, # 28 tab, 0 Refill(s) Active 10/09/2018 [facility] Amoxicillin 875 MG / Clavulanate 125 MG Oral Tablet [Augmentin 875-mg] 875 mg = 1 tab, PO, Q12H, X 14 day, # 28 tab, 0 Refill(s), [facility] [id number] Active 10/09/2018 [facility] Doxycycline Monohydrate 100 MG Oral Capsule 100 mg = 1 cap, PO, Q12H, X 10 day, # 20 cap, 0 Refill(s), Pharmacy: [facility] [id number] Active 10/09/2018 [facility] linezolid Notes: (Same as: Zyv ox) Inactive 10/09/2018 [facility] morphine 0.5 mg/mL preservative-free inj ectable solution 4 mg, Route: IVP, Q4H, Dosing Weight 70. 455, kg, PRN Pain Score 7-10, Start date: 10/08/18 23:11:00 CDT, Duration: 30 day, Stop date: 11/07/18 23:10:00 CDT No Longer Active 10/09/2018 [facility] Morphine Notes: (Same as:MORPh ine Sulfate) No Longer Active 10/09/2018 [facility] atorvastatin Notes: (Same As: Lipitor) No Longer Active 10/09/2018 [facility] morphine Sulfate Notes: (Same as:MORPhine Sulfate) Inactive 10/09/2018 [facility] Doxycycline Notes: (Same as: V ibramycin) No milk/antacids/iron. Take 1 hour before or 2 hours after dairy products No Longer Active 10/08/2018 [facility] Rocephin Notes: (Same As: Roce phin) Inactive 10/08/2018 [facility] Saline Flush 0.9% Notes: (Same as: BD Posiflush) No Longer Active 10/08/2018 [facility] Ramipril Notes: (Same as:Altac e) No Longer Active 10/08/2018 [facility] Miconazole Nitrate 0.02 MG/MG Topical Ointment Notes: (Same as: Monistat Derm, Mication) For external use only. No Longer Active 10/08/2018 [facility] 24 HR Metoprolol Tartrate 25 MG Extended Release Tablet [Toprol] Notes: (Same as: Toprol XL) Do Not Crush No Longer Active 10/08/2018 [facility] Benadryl 25 mg, 1 tab, Route: PO, Drug form: TAB, ONCE, Dosing Weight 70.455, kg, Start date: 10/08/18 3:27:00 CDT, Stop date: 10/08/18 3:27:00 CDT, 0 Inactive 10/08/2018 [facility] Acetaminophen 300 MG / Codeine Phosphate 30 MG Oral Tablet [Tylenol with Codeine #3] Notes: Do not exceed 4gm/day of acetamin ophen. (Same as: Tylenol with Codeine # 3) No Longer Active 10/08/2018 [facility] Vancomycin 1 ea, Route: MISC, ONCALL, Dosing Weight 70.455, kg, Start date: 10/08/18 1:00:00 CDT, Duration: 7 day, Stop date: 10/15/18 0:59:00 CDT, Pharmacy to dose, ABX Indication: Skin/Soft Tissue Infection Inactive 10/08/2018 [facility] vancomycin + Sodium Chloride 0.9% IV 250 mL 2001 mg: infuse over 2.5 hours For adult patients only: Round to nearest 250 mg per Medical Staff approval MEDICATION WASTE Product Size: 1000 mg Product Wasted: ___ mg No Longer Active 10/08/2018 [facility] Saline Flush 0.9% Notes: (Same as: BD Posiflush) No Longer Active 10/08/2018 [facility] Acetaminophen Notes: Do not ex ceed 4 gm/day. (Same as: Tylenol) No Longer Active 10/08/2018 [facility] Ondansetron Notes: (Same as: Harpal torres) No Longer Active 10/08/2018 [facility] Nitroglycerin Notes: (Same as: Nitroquick, Nitrostat) "Do Not Crush" Sublingual tablet No Longer Active 10/08/2018 [facility] Zofran 4 mg, Route: IVP, Drug form: INJ, ONCE, Dosing Weight 70.455, kg, Priority: STAT, Start date: 10/07/18 23:35:00 CDT, Stop date: 10/07/18 23:35:00 CDT Inactive 10/08/2018 [facility] Morphine 4 mg, Route: IVP, ONC E, Dosing Weight 70.455, kg, Priority: STAT, Start date: 10/07/18 23:35:00 CDT, Stop date: 10/07/18 23:35:00 CDT Inactive 10/08/2018 [facility] Tramadol Notes: Not to exceed 400mg/day. (Same As: Ultram) Inactive 08/28/2018 [facility] Sodium Chloride 0.9% IV 400 mL 400 mL, Rate: 20 ml/hr, Infuse over: 20 hr, Route: IV, Dosing Weight 65.909 kg, Total Volume: 400, Start date: 08/28/18 15:04:00 CDT, Duration: 24 hr, Stop date: 08/29/18 15:03:00 CDT, 1.74, m2 Inactive 08/28/2018 [facility] Nitroglycerin Notes: (Same as: Nitroquick, Nitrostat) "Do Not Crush" Sublingual tablet Inactive 08/28/2018 [facility] Sodium Chloride 0.9% IV 1,000 mL 1,000 mL, Rate: 75 ml/hr, Infuse over: 13.3 hr, Route: IV, Dosing Weight 65.909 kg, Total Volume: 1,000, Start date: 08/28/18 12:46:00 CDT, Duration: 30 day, Stop date: 09/27/18 12:45:00 CDT, 1.74, m2 Inactiv e 08/28/2018 [facility] Omnipaque 300 injectable solution Notes: (Same as:Omnipaque 300). WASTE: F/P - Black; E - Municipal Trash Bin Active 07/29/2018 [facility] Allergies, Adverse Reactions, Alerts Substance Category Reaction Severity Reaction type Status Date Reported Comments Source sulfa drugs Assertion Drug allergy Active [facility] azithromycin Assertion Drug allergy Active [facility] aspirin Assertion cannot take d/t Von Willebrand disease Amauri g allergy Active [facility] codeine sulfate Assertion Codeine Sulfate,15 MG,Oral (systemic),tablet, Codeine Sulfate,15 MG,Oral (systemic),tablet Drug allergy Active [facility] erythromycin Assertion Drug allergy Active [facility] vancomycin Assertion Drug allergy Active [facility] Immunizations No Data Provided for This Section Results Order Name Results Value Reference Range Date Interpretation Comments Source ELECTROLYTES AGAP 10.0 10.0 - 20.0 10/09/2018 [facility] ELECTROLYTES CO2 26 24 - 32 10/09/2018 [facility] ELECTROLYTES BUN 15 7 - 22 10/09/2018 [facility] ELECTROLYTES Creatinine Lvl 0.7 8 0.50 - 1.40 10/09/2018 [facility] ELECTROLYTES Calcium Lvl 8.4 8.5 - 10.5 10/09/2018 [facility] ELECTROLYTES Sodium Lvl 136 135 - 145 10/09/2018 [facility] ELECTROLYTES Chloride Lvl 104 95 - 109 10/09/2018 [facility] ELECTROLYTES Potassium Lvl 4.0 3.5 - 5.1 10/09/2018 [facility] ELECTROLYTES eGFR 119 10/09/2018 Result Comment: The [...] should be multiplied by the estimated BMI. [facility] ELECTROLYTES Glucose Lvl 108 70 - 99 10/09/2018 [facility] MCH 30.0 27.0 - 31.0 10/09/2018 [facility] MCV 88.2 80.0 - 94.0 10/09/2018 [facility] MCHC 34.0 32.0 - 36.0 10/09/2018 [facility] Platelet 190 133 - 450 10/09/2018 [facility] RDW 12.7 11.5 - 14.5 10/09/2018 [facility] RBC 4.81 4.70 - 6.10 10/09/2018 [facility] Hct 42.4 42.0 - 54.0 10/09/2018 [facility] Hgb 14.4 14.0 - 18.0 10/09/2018 [facility] MPV 8.9 7.4 - 10.4 10/09/2018 [facility] WBC 14.2 3.7 - 10.4 10/09/2018 [facility] Eosinophils # 0.4 0.0 - 0.5 10/09/2018 [facility] Basophils # 0.1 0.0 - 0.2 10/09/2018 [facility] HEMATOLOGY Lymphocytes # 2.4 1.0 - 5.5 10/09/2018 [facility] HEMATOLOGY Eosinophils 2.8 0.0 - 4.0 10/09/2018 [facility] Basophils 0.5 0.0 - 1.0 10/09/2018 [facility] Monocytes # 1.3 0.0 - 0.8 10/09/2018 [facility] HEMATOLOGY Neutrophils # 10.1 1.5 - 8.1 10/09/2018 [facility] HEMATOLOGY Monocytes 8.8 2.0 - 12.0 10/09/2018 [facility] HEMATOLOGY Lymphocytes 16.8 20.0 - 40.0 10/09/2018 [facility] HEMATOLOGY Segs 71.1 45.0 - 75.0 10/09/2018 [facility] CARDIAC ENZYMES Troponin-I <0.02 0.00 - 0.40 10/08/2018 [facility] CARDIAC ENZYMES Troponin-I <0.02 0.00 - 0.40 10/08/2018 [facility] LIPIDS LDL (Calculated) 113 <=99 mg/dL 10/08/2018 [facility] LIPIDS VLDL 44 10/08/2018 [facility] LIPIDS Trig 221 <=149 mg/dL 10/08/2018 [facility] LIPIDS CHD Risk 6.06 4.00 - 7.30 10/08/2018 [facility] LIPIDS HDL 31 >=61 mg/dL 10/08/2018 [facility] LIPIDS Chol 188 <=199 mg/dL 10/08/2018 [facility] CARDIAC ENZYMES BNP 7 <=100 pg/mL 10/08/2018 [facility] CARDIAC ENZYMES Troponin-I <0.02 0.00 - 0.40 10/08/2018 [facility] CHEM PANEL Lipase Lvl 62 73 - 393 10/08/2018 [facility] CHEM PANEL Magnesium Lvl 2.1 1.8 - 2.4 10/08/2018 [facility] CHEM PANEL B/C Ratio 16 6 - 25 10/08/2018 [facility] CHEM PANEL AGAP 10.9 10.0 - 20.0 10/08/2018 [facility] CHEM PANEL Globulin 3.6 2.7 - 4.2 10/08/2018 [facility] CHEM PANEL A/G Ratio 1.1 0.7 - 1.6 10/08/2018 [facility] CHEM PANEL eGFR 121 10/08/2018 Result Comment: [...] Alk Phos 55 39 - 136 10/08/2018 [facility] CHEM PANEL Bili Total 0.3 0.2 - 1.3 10/08/2018 [facility] CHEM PANEL Glucose Lvl 96 70 - 99 10/08/2018 [facility] CHEM PANEL ALT 32 0 - 65 10/08/2018 [facility] CHEM PANEL Albumin Lvl 3.9 3.5 - 5.0 10/08/2018 [facility] CHEM PANEL AST 15 0 - 37 10/08/2018 [facility] CHEM PANEL Calcium Lvl 8.5 8.5 - 10.5 10/08/2018 [facility] CHEM PANEL Total Protein 7.5 6.4 - 8.4 10/08/2018 [facility] CHEM PANEL Potassium Lvl 3.9 3.5 - 5.1 10/08/2018 [facility] CHEM PANEL Creatinine Lvl 0.76 0.50 - 1.40 10/08/2018 [facility] CHEM PANEL Sodium Lvl 138 135 - 145 10/08/2018 [facility] CHEM PANEL Chloride Lvl 107 95 - 109 10/08/2018 [facility] CHEM PANEL CO2 24 24 - 32 10/08/2018 [facility] CHEM PANEL BUN 12 7 - 22 10/08/2018 [facility] HEMATOLOGY Basophils # 0.1 0.0 - 0.2 10/08/2018 [facility] HEMATOLOGY Monocytes # 1.0 0.0 - 0.8 10/08/2018 [facility] HEMATOLOGY Lymphocytes # 2.4 1.0 - 5.5 10/08/2018 [facility] HEMATOLOGY Neutrophils # 14.1 1.5 - 8.1 10/08/2018 [facility] HEMATOLOGY Eosinophils # 0.3 0.0 - 0.5 10/08/2018 [facility] HEMATOLOGY Lymphocytes 13.2 20.0 - 40.0 10/08/2018 [facility] HEMATOLOGY Segs 79.1 45.0 - 75.0 10/08/2018 [facility] HEMATOLOGY Monocytes 5.6 2.0 - 12.0 10/08/2018 [facility] HEMATOLOGY Basophils 0.5 0.0 - 1.0 10/08/2018 [facility] HEMATOLOGY Eosinophils 1.6 0.0 - 4.0 10/08/2018 [facility] Hgb 15.2 14.0 - 18.0 10/08/2018 [facility] RBC 5.10 4.70 - 6.10 10/08/2018 [facility] WBC 17.8 3.7 - 10.4 10/08/2018 [facility] MPV 8.9 7.4 - 10.4 10/08/2018 [facility] Hct 44.8 42.0 - 54.0 10/08/2018 [facility] Platelet 218 133 - 450 10/08/2018 [facility] RDW 13.1 11.5 - 14.5 10/08/2018 [facility] MCHC 34.0 32.0 - 36.0 10/08/2018 [facility] MCH 29.8 27.0 - 31.0 10/08/2018 [facility] MCV 87.8 80.0 - 94.0 10/08/2018 [facility] PT 13.7 12.0 - 14.7 10/08/2018 [facility] PTT 34.1 22.9 - 35.8 10/08/2018 [facility] INR 1.07 0.85 - 1.17 10/08/2018 [facility] CHEM PANEL Magnesium Lvl 1.9 1.8 - 2.4 08/28/2018 [facility] CHEM PANEL eGFR 116 08/28/2018 Result Comment: [...] should be multiplied by the estimated BMI. [facility] CHEM PANEL Calcium Lvl 9.0 8.5 - 10.5 08/28/2018 [facility] CHEM PANEL Potassium Lvl 4.3 3.5 - 5.1 08/28/2018 [facility] CHEM PANEL Sodium Lvl 138 135 - 145 08/28/2018 [facility] CHEM PANEL Chloride Lvl 104 95 - 109 08/28/2018 [facility] CHEM PANEL CO2 24 24 - 32 08/28/2018 [facility] CHEM PANEL Glucose Lvl 89 70 - 99 08/28/2018 [facility] CHEM PANEL Creatinine Lvl 0.83 0.50 - 1.40 08/28/2018 [facility] CHEM PANEL BUN 11 7 - 22 08/28/2018 [facility] CHEM PANEL AGAP 14.3 10.0 - 20.0 08/28/2018 [facility] HEMATOLOGY Basophils # 0.1 0.0 - 0.2 08/28/2018 [facility] HEMATOLOGY Lymphocytes # 1.8 1.0 - 5.5 08/28/2018 [facility] HEMATOLOGY Monocytes # 0.7 0.0 - 0.8 08/28/2018 [facility] HEMATOLOGY Eosinophils # 0.1 0.0 - 0.5 08/28/2018 [facility] HEMATOLOGY Neutrophils # 6.8 1.5 - 8.1 08/28/2018 [facility] HEMATOLOGY Basophils 0.8 0.0 - 1.0 08/28/2018 [facility] HEMATOLOGY Segs 72.1 45.0 - 75.0 08/28/2018 [facility] HEMATOLOGY Lymphocytes 18.8 20.0 - 40.0 08/28/2018 [facility] HEMATOLOGY Eosinophils 1.3 0.0 - 4.0 08/28/2018 [facility] HEMATOLOGY Monocytes 7.0 2.0 - 12.0 08/28/2018 [facility] HEMATOLOGY PT 15.3 12.0 - 14.7 08/28/2018 [facility] HEMATOLOGY PTT 39.0 22.9 - 35.8 08/28/2018 [facility] HEMATOLOGY INR 1.23 0.85 - 1.17 08/28/2018 [facility] HEMATOLOGY MPV 9.4 7.4 - 10.4 08/28/2018 [facility] HEMATOLOGY Platelet 246 133 - 450 08/28/2018 [facility] HEMATOLOGY MCH 30.5 27.0 - 31.0 08/28/2018 [facility] HEMATOLOGY MCV 89.0 80.0 - 94.0 08/28/2018 [facility] HEMATOLOGY MCHC 34.3 32.0 - 36.0 08/28/2018 [facility] HEMATOLOGY Hct 49.0 42.0 - 54.0 08/28/2018 [facility] HEMATOLOGY RBC 5.51 4.70 - 6.10 08/28/2018 [facility] HEMATOLOGY Hgb 16.8 14.0 - 18.0 08/28/2018 [facility] HEMATOLOGY RDW 13.0 11.5 - 14.5 08/28/2018 [facility] HEMATOLOGY WBC 9.5 3.7 - 10.4 08/28/2018 [facility] BLOOD BANK RESULTS Antibody Scrn Negative (08/28/18 12:50 PM) 08/28/2018 [facility] BLOOD BANK RESULTS ABO/Rh A POS 08/28/2018 [facility] CHEM PANEL eGFR 119 07/29/2018 Result Comment: [...] should be multiplied by the estimated BMI. [facility] CHEM PANEL POC Creatinine 0.8 0.5 - 1.4 07/29/2018 [facility] Pathology Reports No Data Provided for This [...] prior left orchiect catracho. SL: SLEE-PC 10/08/2018 [facility] Chest wo contrast CT STUDY: [facility] wo contrast CT 10/08/2018 12:47 AM CDT Ordering Physician: Fabiola Alfaro MD Patient Name: HOLLIE NGUYEN MR: [id number] : 1985; Age: 33 years y/o Male [...] Hyperinflated but clear lungs. SL: PANCHOINTER-PC 10/08/2018 [facility] Chest 1view DX Clinical Indica tion: Chest [...] radiographically apparent acute ca rdiopulmonary process. SL: [id number] 10/07/2018 [facility] Scrotal/Testicle w Doppler US Clinical Indication: - [...] left testicle (prior orchiectomy). SL: SYEDA 07/29/2018 [facility] Abdomen/Pelvis w IV contrast CT Study: CT [...] to patient size -Use of iterative reconstruction [employer] ue CT Radiation Dose DLP 555 mGy-cm [...] appendectomy. 4. Small bilateral renal calculi. SL: [id number] 07/29/2018 [facility] Consultation Notes No Data Provided for This Section Discharge Summaries No Data Provided for This Section History and Physicals No Data Provided for This Section Vital Signs Vital Sign Value Date Comments Source Heart Rate 57 10/09/2018 [facility] Respitory Rate 16 10/09/2018 [facility] Systolic (mm Hg) 117 10/09/2018 [facility] Diastolic (mm Hg) 74 10/09/2018 [facility] Temperature Oral (F) 98.1 F 10/09/2018 [facility] Systolic (mm Hg) 137 10/09/2018 [facility] Diastolic (mm Hg) 56 10/09/2018 [facility] Respitory Rate 16 10/09/2018 [facility] Heart Rate 58 10/09/2018 [facility] Temperature Oral (F) 97.5 F 10/09/2018 [facility] Temperature Oral (F) 98.4 F 10/09/2018 [facility] Respitory Rate 16 10/09/2018 [facility] Systolic (mm Hg) 123 10/09/2018 [facility] Diastolic (mm Hg) 70 10/09/2018 [facility] Heart Rate 60 10/09/2018 [facility] BMI Calculated 25.85 10/08/2018 [facility] Weight 70.455 10/08/2018 [facility] Height 165.1 cm 10/08/2018 [facility] BMI Calculated 25.85 10/08/2018 [facility] BMI Calculated 25.85 10/08/2018 [facility] Weight 70.455 10/08/2018 [facility] Height 165.1 cm 10/08/2018 [facility] Weight 70.455 10/08/2018 [facility] Height 165.1 cm 10/08/2018 [facility] Systolic (mm Hg) 128 08/28/2018 [facility] Diastolic (mm Hg) 69 08/28/2018 [facility] Systolic (mm Hg) 128 08/28/2018 [facility] Diastolic (mm Hg) 69 08/28/2018 [facility] Systolic (mm Hg) 126 08/28/2018 [facility] Diastolic (mm Hg) 71 08/28/2018 [facility] Weight 65.909 08/28/2018 [facility] Height 162.56 cm 08/28/2018 [facility] BMI Calculated 24.94 08/28/2018 [facility] Encounters Location Location Details Encounter Type Encounter Number Reason For Visit Attending Provider ADM Date DC Date Status Source [facility] Outpatient [id number] Getachew Cabrales 07/29/2018 07/30/2018 [facility] Outpatient [id number] Benjamin Noa 08/04/2018 Active [facility] [place] [facility] Pre-Reg [id number] [facility] 08/04/2018 08/04/2018 [facility] Bed[facility] Outpatient [id number] Margarito Rivera 08/28/2018 08/28/2018 [facility] Observation [id number] Celio Juarez 10/08/2018 10/09/2018 [facility] Outpatient [id number] Mansoor Dhaliwal 10/29/2018 Active [facility] Procedures Procedure Code Date Perfomer Comments Source Implantation of automatic cardioverter/d efibrillator, total system (AICD) [id number] [facility] Assessment and Plan Assessment and Plan Date [...] RN-Cathy trough reminder on 10/09 @ 12:15 Attn:RNDILLON, ONCE atorvastatin 10 mg TAB 10 mg 1 tab, PO, Bedtime doxycycline 50 mg CAP 100 mg 2 cap, PO, [id number] metoprolol succinate 25 mg ERT 25 mg 1 tab, PO, Daily miconazole 2% 30 gm TOP CRM 1 appl, TOP, BID ramipril 2.5 mg CAP 2.5 mg 1 cap, PO, Daily sodium chloride 0.9% 10 ml flush syr BD 10 ml, IVP, Q12H vancomycin INJ + sodium chloride 0.9% 250 mL INJ (for IV set) 250 mL 1,250 mg, IVPB, [id number] Continuous: (0) PRN: (6) acetaminophen 325 mg [...] - complete serial torponin - cardiology and clinical implementation specialist consult s ubmitted - started on epiric antibiotics and pain control per protocol observation full code 10/09/2018 [facility] Plan of Care No Data Provided for [...] of years: 17; entered on: 10/08/18 10/08/2018 [facility] Social History TypeResponse Alcohol Never Smoking Status [...] of years: 17; entered on: 08/28/18 07/01/2018 [facility] Family History No Data Provided for This Section Advance Directives No Data Provided for This Section Functional Status No Data Provided for This Section
[2019-09-10 21:43] VITALS: BP 133/84
[2019-09-10 22:03] VITALS: BP 133/84
--- NOTE | 2019-09-10 23:00 | NUR ---
SPOKE TO MD [facility] QUIANA RESENDIZ REGARDING PATIENT CONCERNS OF TORADOL. PATIENT STATES "TORADOL MAKES ME BLEED". NEW ORDERS RECEIVED.
[2019-09-11] VITALS (9 sets, daily range): BP systolic 129–144; BP diastolic 78–99
[2019-09-11] MEDS: SODIUM CHLORIDE 0.9% 1000ML 1,000 ML IV SCH ×4 (00:17→21:04)
[2019-09-11] MEDS: MORPHINE SULFATE INJ 4 MG/ML INJ 1ML IV PRN ×4 (00:17→12:34)
[2019-09-11 06:02] LABS: BASOPHILS # (AUTO) 0.1 (0.0-0.1); BASOPHILS % 0.7 % (0.0-1.0); EOSINOPHILS # (AUTO) 0.3 (0.0-0.4); EOSINOPHILS % 4.3 % (0.0-6.0); HEMOGLOBIN 13.4 g/dL (14.0-18.0); LYMPHOCYTES # (AUTO) 2.2 (1.0-3.2); LYMPHOCYTES % 29.9 % (18.0-39.1); MEAN CORPUSCULAR HEMOGLOBIN 30.8 pg (28-32); MEAN CORPUSCULAR HGB CONC 33.5 g/dL (31-35); MONOCYTES # (AUTO) 0.7 (0.2-0.8); MONOCYTES % 9.4 % (4.4-11.3); NEUTROPHILS # (AUTO) 4.1 (2.1-6.9); PLATELET COUNT 241 x10e3/uL (140-360); RED BLOOD COUNT 4.35 x10e6/uL (4.3-5.7); RED CELL DISTRIBUTION WIDTH 11.8 % (11.7-14.4)
[2019-09-11 06:46] LABS: ALANINE AMINOTRANSFERASE 22 IU/L (0-55); ALBUMIN 3.4 g/dL (3.5-5.0); ALBUMIN/GLOBULIN RATIO 1.3 (0.8-2.0); ALKALINE PHOSPHATASE 47 IU/L (40-150); ANION GAP 11.8 mmol/L (8-16); BLOOD UREA NITROGEN 7 mg/dL (7-26); BUN/CREATININE RATIO 10 (6-25); CALCIUM 8.8 mg/dL (8.4-10.2); CARBON DIOXIDE 19 mmol/L (22-29); CHLORIDE 111 mmol/L (98-107); CREATININE, SERUM 0.68 mg/dL (0.72-1.25); EST GLOMERULAR FILTRATION RATE > 60 ML/MIN (60-); GLUCOSE 95 mg/dL (74-118); POTASSIUM 3.8 mmol/L (3.5-5.1); SODIUM 138 mmol/L (136-145)
--- NOTE | 2019-09-11 07:27 | NUR ---
REPORT GIVEN TO DAYSHIFT NURSE. RESTING IN BED. IN STABLE CONDITION. NO SIGNS OF IV INFILTRATION. BED LOCKED AND IN LOW POSITION. CALL LIGHT WITHIN REACH.
--- NOTE | 2019-09-11 11:09 | Diagnostic Imaging Report ---
Exam: KUB - 2 views Indication: Abdominal Pain Comparison: CT abdomen and pelvis of 09/10/2019 Findings: None objective bowel gas pattern. No free air. Status post cholecystectomy. Surgical clips in the right lower quadrant. Renal calculi measure up to 3 mm on the right and 4 mm on the left. No acute osseous injury. Impression: Nonobstructive bowel gas pattern. No free air. Small right and left renal calculi as seen on CT of 09/10/2019. Signed by: Kandis Morales MD on 09/11/2019 11:05 AM
[2019-09-11] MEDS: PANTOPRAZOLE SOD 40 MG TABEC PO SCH (17:07)
--- NOTE | 2019-09-11 19:33 | NUR ---
DR. WILHELM DOING ROUNDS. NEW ORDER RECEIVED TO CHANGE DIET TO CARDIAC. SAID PER GI STANDPOINT PATIENT CAN BE DC'D TOMORROW IF TOLERATING DIET.
[2019-09-11] MEDS: MORPHINE SULFATE 2 MG/ML SYR 1ML IV PRN (21:00)
[2019-09-11] MEDS ORDERED: METOPROLOL SUCCINATE 25 MG TAB XL PO SCH (21:00)
[2019-09-11] MEDS ORDERED: ATORVASTATIN 10 MG TAB PO SCH (21:00)
--- NOTE | 2019-09-11 22:26 | Consultation ---
DATE OF CONSULTATION: 09/11/2019 GI Consult Note REASON FOR CONSULT: Abdominal pain, possible ileus and fluid collection in the small bowel. HISTORY OF PRESENT ILLNESS: A 34-year-old male, who is very well known to me. I follow him in my office. Apparently, he has had some left pelvic mass. This about 2.2 cm. He has had image-guided percutaneous biopsy by Interventional Radiology in this hospital yesterday. He was sent home. After reaching home, he started feeling weak and little lower abdominal discomfort. No associated fever or chills. No diarrhea or constipation. When he arrived in the emergency room, he was hemodynamically stable. His peripheral cell count was also noted unremarkable. Hemoglobin was 13.7 yesterday. Today, it is 13.4. CT scan of the abdomen and pelvis was done with contrast that showed same 2.2 cm soft tissue mass in the left anterolateral to the left psoas muscle. Some surgical clips anterior to the rectosigmoid junction was again seen. No pneumoperitoneum or any hemoperitoneum identified. No soft tissue mass adjacent to the left psoas muscles seen. No evidence of any hematoma. Some fluid-filled distended small bowel loops were also noticed. The patient has been put on clear liquid diet. GI consult is being obtained to ensure that the patient does not have any acute GI pathology at this time. He is tolerating clear liquid diet. The patient is hungry and asking me if he can eat solid food. REVIEW OF SYSTEMS: Twelve-point systems reviewed, symptomatology is limited to GI system. PAST MEDICAL HISTORY: History of colorectal cancer, testicular cancer, cardiomyopathy, hyperlipidemia, and von Willebrand disease. PAST SURGICAL HISTORY: Appendectomy, AICD/pacemaker. FAMILY HISTORY: Negative for any GI or [employer] malignancies. SOCIAL HISTORY: Chronic smoker, drinks alcohol occasionally. Never used any illicit drugs. ALLERGIES: SULFA AND ERYTHROMYCIN. HOME MEDICATIONS: 1. Atorvastatin 10 mg daily. 2. Metoprolol 50 mg daily. 3. Pantoprazole 40 mg twice daily. 4. Ramipril 2.5 mg daily. Inpatient medication list reviewed as per MAY. He is getting morphine for pain control along with Zofran for nausea. Other outpatient medication has been continued. PHYSICAL EXAMINATION: VITAL SIGNS: Temperature 98.4, pulse 59, respirations 17, blood pressure 134/78, oxygen saturation 98% on room air. GENERAL: Not in any apparent distress. HEENT: Oral mucosa is moist. Anicteric sclerae. CVS: S1, S2. Regular. LUNGS: Bilaterally grossly clear. ABDOMEN: Soft. Mild left lower quadrant tenderness at the site of biopsy. No rebound, rigidity, or guarding. Positive bowel sounds, bowel sounds are not hyperactive. EXTREMITIES: Warm. No leg edema. LABORATORY DATA: WBC came down to 7.46 from 10.14, hemoglobin down to 13.4 from 13.7, hematocrit 40 from 41.3, platelet count 241. Sodium 138, potassium 3.8, chloride 111, bicarb 19, BUN 7, creatinine 0.68, glucose 95. Liver enzymes normal. Abdominal x-ray showed nonobstructive bowel gas pattern. No free air. Small right and left renal calculi. CT of the abdomen and pelvis with contrast showed: 1. No pneumoperitoneum or evidence for hemoperitoneum. The soft tissue mass adjacent to the left psoas remains well defined with no evidence of adjacent hematoma. There are adjacent foci of soft tissue air and minimal stranding in the adjacent fat consistent with recent biopsy. 2. Fluid-filled mildly distended small bowel loops are seen in the central and left abdomen, likely representing localized ileus. 3. Small nonobstructing bilateral intrarenal calculi are again seen. IMPRESSION: Lower abdominal pain post percutaneous biopsy of the left pelvic mass. No other acute intraabdominal pathology. CT scan is pretty much negative. PLAN: Advance diet. Reassurance. Pain control. The patient can be discharged home from GI standpoint. I will follow in my office in next 2 weeks. I thank, Dr. Ureña, for allowing me to participate in the care of this patient. Henrry Parker MD SA/MODL /[id number]
[2019-09-12] MEDS: MORPHINE SULFATE 2 MG/ML SYR 1ML IV PRN (03:20)
[2019-09-12 04:00] VITALS: BP 124/69
[2019-09-12] MEDS: SODIUM CHLORIDE 0.9% 1000ML 1,000 ML IV SCH (04:28)
[2019-09-12 05:45] LABS: BASOPHILS # (AUTO) 0.1 (0.0-0.1); BASOPHILS % 0.8 % (0.0-1.0); EOSINOPHILS # (AUTO) 0.4 (0.0-0.4); EOSINOPHILS % 4.4 % (0.0-6.0); HEMATOCRIT 39.8 % (38.2-49.6); HEMOGLOBIN 13.3 g/dL (14.0-18.0); LYMPHOCYTES # (AUTO) 2.2 (1.0-3.2); MEAN CORPUSCULAR HEMOGLOBIN 31.1 pg (28-32); MEAN CORPUSCULAR HGB CONC 33.4 g/dL (31-35); MEAN CORPUSCULAR VOLUME 93.2 fL (81-99); MONOCYTES # (AUTO) 0.8 (0.2-0.8); NEUTROPHILS # (AUTO) 5.1 (2.1-6.9); NEUTROPHILS % 59.2 % (38.7-80.0); PLATELET COUNT 225 x10e3/uL (140-360); RED BLOOD COUNT 4.27 x10e6/uL (4.3-5.7); RED CELL DISTRIBUTION WIDTH 11.8 % (11.7-14.4)
[2019-09-12 06:23] LABS: ANION GAP 12.1 mmol/L (8-16); BLOOD UREA NITROGEN 7 mg/dL (7-26); BUN/CREATININE RATIO 9 (6-25); CALCIUM 8.8 mg/dL (8.4-10.2); CARBON DIOXIDE 19 mmol/L (22-29); CHLORIDE 110 mmol/L (98-107); CREATININE, SERUM 0.74 mg/dL (0.72-1.25); EST GLOMERULAR FILTRATION RATE > 60 ML/MIN (60-); GLUCOSE 113 mg/dL (74-118); POTASSIUM 4.1 mmol/L (3.5-5.1); SODIUM 137 mmol/L (136-145)
[2019-09-12 08:11] VITALS: BP 121/85
[2019-09-12 08:18] VITALS: BP 121/85
[2019-09-12 08:19] VITALS: BP 121/85
[2019-09-12] MEDS: PANTOPRAZOLE SOD 40 MG TABEC PO SCH (08:49)
[2019-09-12] MEDS ORDERED: ULTRAM50 MG PO (11:31)
[2019-09-12 12:15] VITALS: BP 141/83
--- NOTE | 2019-09-12 14:48 | Discharge Summary ---
PRIMARY CARE PHYSICIAN: Dr. Hadley Garcia. CONSULTING PHYSICIANS: Include Dr. Kyle Eaton and Dr. Henrry Parker. CHIEF COMPLAINT: Left lower quadrant abdominal pain. PERTINENT HISTORY AND PHYSICAL FINDINGS: The patient is a 34-year-old male with a left pelvic mass about 2.2 cm that had image-guided percutaneous biopsy by Interventional Radiology in this hospital on 09/10/2019. He had been sent home. After reaching home, he started feeling weak and a little lower abdominal discomfort. No associated fever or chills. No diarrhea or constipation. CT of the abdomen and pelvis was done with contrast that showed the same 2.2 cm soft tissue mass on the left anterolateral to the left psoas muscle. Some surgical clips anterior to the rectosigmoid junction again seen. The patient reported flatus and BM 09/10, and was started on a clear liquid diet. PAST MEDICAL HISTORY: Hypertension, testicular cancer, cardiomyopathy, history of colorectal cancer, hyperlipidemia, and von Willebrand disease. PAST SURGICAL HISTORY: Appendectomy, AICD/pacemaker, and testicle removed for cancer in 2014. FAMILY HISTORY: Grandfather had ICD placement and cancer. Father had a heart attack. SOCIAL HISTORY: Smoking half-pack a day. Drinks alcohol occasionally. Denies illicit drug use. ALLERGIES: SULFA AND ERYTHROMYCIN BASE. ADMITTING DIAGNOSES: 1. Lower abdominal pain, status post percutaneous biopsy of a left 2.2 cm pelvic mass on 09/10/2019. 2. Controlled hypertension. 3. History of testicular cancer. 4. Hyperlipidemia. The patient was seen and evaluated by Dr. Parker with Gastroenterology. CT scan generally negative. Diet advanced. Seems to be tolerating that fine. We will discharge him home today with tramadol for pain 50 mg p.o. q.4 hours p.r.n., quantity 30. This case was discussed with Dr. Eaton and Dr. Parker with Gastroenterology, and the patient can be discharged home from their standpoint. Instructions given to follow up with PCP and consultants in 1 to 2 weeks. Continue cardiac diet. Activity level as tolerated. PHYSICAL EXAMINATION: VITAL SIGNS: Today, temperature 98.6, heart rate 58, blood pressure 121/85, respirations 18, and oxygen saturation 99%. GENERAL: Subjectively, his lower abdominal pain is 4/10 at present. No acute distress. LUNGS: Clear to auscultation. Respiratory pattern even nonlabored on room air. HEENT: EOMI. NECK: Supple. CARDIOVASCULAR: Regular rate and rhythm. No murmur. ABDOMEN: Bowel sounds positive. Soft. EXTREMITIES: Without pitting edema. No clubbing or cyanosis. No sign of DVT. NEUROLOGICAL: GCS 15. Nonfocal. LABORATORY DATA: Sodium 137, potassium 4.1, chloride 110, CO2 19, BUN 7, creatinine 0.74, and glucose 113. WBC 8.58, hemoglobin 13.3, hematocrit 39.8, and platelets 225. Dictated by Clarence Fernandez, FABIOLA Maverick Ureña MD HWP/MODL /[id number]
== END 2019-09-12 12:25 | disposition home or self-care (01) | DRG 394 ==
LOC: ER 17:50 → ERHOLD 20:37 → MED/SURG 21:45 → OBSVTOIN 09-11 16:11
PROVIDERS: ADMIT Internal Medicine; ATTEND Internal Medicine
DX: K91.89 Other postprocedural complications and disorders of digestive system (principal); K56.7 Ileus, unspecified; I42.9 Cardiomyopathy, unspecified; I10 Essential (primary) hypertension; E78.5 Hyperlipidemia, unspecified; Z85.47 Personal history of malignant neoplasm of testis; Z95.810 Presence of automatic (implantable) cardiac defibrillator; Z85.038 Personal history of other malignant neoplasm of large intestine; Z11.59 Encounter for screening for other viral diseases; D64.9 Anemia, unspecified; N20.0 Calculus of kidney; F17.210 Nicotine dependence, cigarettes, uncomplicated
CPT/HCPCS: 10009; 36415; 74019; 74177; 80048; 80053; 85014; 85025; 85049; 85610; 85730; 86850; 86900; 88112; 88172; 88173; 88305; 99152; 99153; 99284; G0378; J1885; J2250; J2270; J2405; J3010; J7030; Q9967; U0002

== ENCOUNTER → 2019-09-10 | Outpatient (CLI) | payer MEDICARE, OTHER ==
[~2019-09-10] MED LIST changes: +FENTANYL CITRATE/PF 100MCG/2 ML INJ ONE; +MIDAZOLAM HCL 2 MG/2 ML VIAL ONE
[2019-09-10 13:54] LABS: HEMOGLOBIN 14.5 g/dL (14.0-18.0)
[2019-09-10 14:23] LABS: INR 0.95; PARTIAL THROMBOPLASTIN TIME 30.9 seconds (23.8-35.5); PROTHROMBIN TIME 13.2 seconds (11.9-14.5)
--- NOTE | 2019-09-10 16:08 | Diagnostic Imaging Report ---
PROCEDURE: CT-guided retroperitoneal biopsy Procedural Personnel Attending physician(s): Kandis Morales MD Fellow physician(s): None Resident physician(s): None Advanced practice provider(s): None Pre-procedure diagnosis: Retroperitoneal soft tissue nodule Post-procedure diagnosis: Same Indication: Histopathologic diagnosis Previous biopsy of same target (QCDR): No Additional clinical history: None Complications: No immediate complications. IMPRESSION: CT-guided biopsy of left retroperitoneal soft tissue nodule. Plan: Specimen(s) sent for evaluation. PROCEDURE SUMMARY: - Percutaneous CT-guided retroperitoneal soft tissue biopsy - Additional procedure(s): None PROCEDURE DETAILS: Pre-procedure Reference imaging for biopsy target: CT abdomen/pelvis 07/24/2019 Consent: Informed consent for the procedure including risks, benefits and alternatives was obtained and time-out was performed prior to the procedure. Preparation: The site was prepared and draped using maximal sterile barrier technique including cutaneous antisepsis. Anesthesia/sedation Level of anesthesia/sedation: Moderate sedation (conscious sedation) 2mg Versed 100mcg Fentanyl Anesthesia/sedation administered by: Independent trained observer under attending supervision with continuous monitoring of the patient?s level of consciousness and physiologic status Total intra-service sedation time (minutes): 30 Imaging prior to biopsy The patient was positioned supine. Initial imaging was performed using noncontrast CT. Biopsy target: - Maximal diameter (cm): 1.5 - Location: Left retroperitoneum, lateral to psoas muscle Other findings: None Biopsy Local anesthesia was administered. Under CT guidance, the biopsy needle was advanced to the target and biopsy was performed. Coaxial needle: 17g Core needle biopsy device: Easy Metrics Core needle size: 18g Number of core specimens: 3 Fine needle aspiration device: Chiba Fine needle size: 22g Number of FNA specimens: 2 On-site biopsy touch preparation: Yes Additional sampling recommendations: None Preliminary assessment of sample adequacy: Not applicable Needle removal The biopsy needle was removed and a sterile dressing was applied. Tract embolization: None Imaging following biopsy Immediate post-biopsy imaging was performed using noncontrast CT. Post-biopsy imaging findings: No hematoma Contrast Contrast agent: None Contrast volume (mL): [address] dose length product (mGy-cm): 1683 Additional Details Additional description of procedure: None Equipment details: None Specimens removed: Biopsy samples as detailed above Estimated blood loss (mL): Less than 10 Standardized report: [id number] Attestation Signer name: Kandis Morales MD I attest that I was present for the entire procedure. I reviewed the stored images and agree with the report as written. Signed by: Kandis Morales MD on 09/10/2019 4:05 PM
== END ==
LOC: CT 13:31
PROVIDERS: ATTEND Urology
DX: C62.12 Malignant neoplasm of descended left testis (principal); N28.1 Cyst of kidney, acquired; Z11.59 Encounter for screening for other viral diseases
CPT/HCPCS: 10009; 36415; 85014; 85049; 85610; 85730; 87635; 88112; 88305; J2250; J3010

== ENCOUNTER 2019-11-21 21:27 | Observation (INO) | payer MEDICARE, OTHER ==
[~2019-11-21] VITALS: Ht 162.6 cm; Wt 76.7 kg
[~2019-11-21 21:27] MED LIST changes: +FENTANYL CITRATE/PF 100MCG/2 ML INJ ONE; +MIDAZOLAM HCL 2 MG/2 ML VIAL ONE
[2019-11-21] MEDS ORDERED: HYDROCODONE/APAP 5MG-325MG TAB PO ONE (22:15)
[2019-11-21] MEDS ORDERED: KETOROLAC TROMETHAMINE 60 MG/2 ML VIAL IM ONE (22:15)
--- OUTSIDE RECORDS SUMMARY | 2019-11-21 22:27 | XMS REPORT | Continuity of Care Document ---
Author Author Suda, HOLLIE Terry Suda Address Unknown Phone Unavailable Care Team Providers Care Stopperer Assembler Name Role Phone [employer] Unavailable Un available Problems Problem Status Onset Date Classification Date Reported Comments Source RT ANKLE FX Active 08/10/2019 [facility] [place] CELLULITIS, CHEST PAIN Active 10/07/2018 [facility] CHEST PAIN Active 10/07/2018 [facility] C62.12=MALIGNANT NEOPLASM OF DESCENDED L Active 07/24/2018 [facility] CCL/LHC W/PCI (R) RADIO Active 07/15/2018 [facility] Cardiomyopathy (disorder) Reso lved Problem [facility] CELLULITIS, UNSPECIFIED Active [facility] CHEST PAIN, UNSPECIFIED Active [facility] MALIGNANT NEOPLASM OF DESCENDED LEFT ABISAI Active [facility] Medications Medication Details Route Status Patient Instructions Ordering Provider Order Date Source RN-Vanco trough reminder on 10/09 @ 12:15 RN- Vanco trough reminder on 10/09 @ 12:15, Attn:JOHNATHON, Drug form: MISC, Route: MISC, ONCE, 10/09/18 11:45:00 CDT, Stop date: 10/09/18 11:45:00 CDT, 0 Inactive 10/09/2018 [facility] Acetaminophen 300 MG / Codeine Phosphate 30 MG Oral Tablet [Tylenol with Codeine #3] 1 tab, PO, Q6H, PRN Pain, X 7 day, # 28 tab, 0 Refill(s) Active 10/09/2018 [facility] Amoxicillin 875 MG / Clavulanate 125 MG Oral Tablet [Augmentin 875-mg] 875 mg = 1 tab, PO, Q12H, X 14 day, # 28 tab, 0 Refill(s), Pharmacy: [facility] [id number] Active 10/09/2018 [facility] Doxycycline Monohydrate 100 MG Oral Capsule 100 mg = 1 cap, PO, Q12H, X 10 day, # 20 cap, 0 Refill(s), Pharmacy: [facility] [id number] Active 10/09/2018 [facility] linezolid Notes: (Same as: Zyv ox) Inactive 10/09/2018 [facility] morphine 0.5 mg/mL preservative-free inj ectable solution 4 mg, Route: IVP, Q4H, Dosing Weight 70. 455, kg, PRN Pain Score 7-10, Start date: 10/08/18 23:11:00 CDT, Duration: 30 day, Stop date: 11/07/18 23:10:00 CDT No Longer Active 10/09/2018 [facility] Morphine Notes: (Same as:MORPh ine Sulfate) No Longer Active 10/09/2018 [facility] atorvastatin Notes: (Same As: Lipitor) No Longer Active 10/09/2018 [facility] morphine Sulfate Notes: (Same as:MORPhine Sulfate) Inactive 10/09/2018 [facility] Doxycycline Notes: (Same as: V ibramycin) No milk/antacids/iron. Take 1 hour before or 2 hours after dairy products No Longer Active 10/08/2018 [facility] Rocephin Notes: (Same As: Roce phin) Inactive 10/08/2018 [facility] Saline Flush 0.9% Notes: (Same as: BD Posiflush) No Longer Active 10/08/2018 [facility] Ramipril Notes: (Same as:Altac e) No Longer Active 10/08/2018 [facility] Miconazole Nitrate 0.02 MG/MG Topical Ointment Notes: (Same as: Monistat Derm, Mication) For external use only. No Longer Active 10/08/2018 [facility] 24 HR Metoprolol Tartrate 25 MG Extended Release Tablet [Toprol] Notes: (Same as: Toprol XL) Do Not Crush No Longer Active 10/08/2018 [facility] Benadryl 25 mg, 1 tab, Route: PO, Drug form: TAB, ONCE, Dosing Weight 70.455, kg, Start date: 10/08/18 3:27:00 CDT, Stop date: 10/08/18 3:27:00 CDT, 0 Inactive 10/08/2018 [facility] Acetaminophen 300 MG / Codeine Phosphate 30 MG Oral Tablet [Tylenol with Codeine #3] Notes: Do not exceed 4gm/day of acetamin ophen. (Same as: Tylenol with Codeine # 3) No Longer Active 10/08/2018 [facility] Vancomycin 1 ea, Route: MISC, ONCALL, Dosing Weight 70.455, kg, Start date: 10/08/18 1:00:00 CDT, Duration: 7 day, Stop date: 10/15/18 0:59:00 CDT, Pharmacy to dose, ABX Indication: Skin/Soft Tissue Infection Inactive 10/08/2018 [facility] vancomycin + Sodium Chloride 0.9% IV 250 mL 2001 mg: infuse over 2.5 hours For adult patients only: Round to nearest 250 mg per Medical Staff approval MEDICATION WASTE Product Size: 1000 mg Product Wasted: ___ mg No Longer Active 10/08/2018 [facility] Saline Flush 0.9% Notes: (Same as: BD Posiflush) No Longer Active 10/08/2018 [facility] Acetaminophen Notes: Do not ex ceed 4 gm/day. (Same as: Tylenol) No Longer Active 10/08/2018 [facility] Ondansetron Notes: (Same as: Z danaran) No Longer Active 10/08/2018 [facility] Nitroglycerin Notes: (Same as: Nitroquick, Nitrostat) "Do Not Crush" Sublingual tablet No Longer Active 10/08/2018 [facility] Zofran 4 mg, Route: IVP, Drug form: INJ, ONCE, Dosing Weight 70.455, kg, Priority: STAT, Start date: 10/07/18 23:35:00 CDT, Stop date: 10/07/18 23:35:00 CDT Inactive 10/08/2018 [facility] Morphine 4 mg, Route: IVP, ONC E, Dosing Weight 70.455, kg, Priority: STAT, Start date: 10/07/18 23:35:00 CDT, Stop date: 10/07/18 23:35:00 CDT Inactive 10/08/2018 [facility] Tramadol Notes: Not to exceed 400mg/day. (Same As: Ultram) Inactive 08/28/2018 [facility] Sodium Chloride 0.9% IV 400 mL 400 mL, Rate: 20 ml/hr, Infuse over: 20 hr, Route: IV, Dosing Weight 65.909 kg, Total Volume: 400, Start date: 08/28/18 15:04:00 CDT, Duration: 24 hr, Stop date: 08/29/18 15:03:00 CDT, 1.74, m2 Inactive 08/28/2018 [facility] Nitroglycerin Notes: (Same as: Nitroquick, Nitrostat) "Do Not Crush" Sublingual tablet Inactive 08/28/2018 [facility] Sodium Chloride 0.9% IV 1,000 mL 1,000 mL, Rate: 75 ml/hr, Infuse over: 13.3 hr, Route: IV, Dosing Weight 65.909 kg, Total Volume: 1,000, Start date: 08/28/18 12:46:00 CDT, Duration: 30 day, Stop date: 09/27/18 12:45:00 CDT, 1.74, m2 Inactiv e 08/28/2018 [facility] Omnipaque 300 injectable solution Notes: (Same as:Omnipaque 300). WASTE: F/P - Black; E - [employer] Trash Bin Active 07/29/2018 [facility] Allergies, Adverse Reactions, Alerts Substance Category Reaction Severity Reaction type Status Date Reported Comments Source sulfa drugs Assertion Drug allergy Active [facility] azithromycin Assertion Drug allergy Active [facility] aspirin Assertion cannot take d/t Von Willebrand disease Amauri g allergy Active [facility] codeine sulfate Assertion Codeine Sulfate,15 MG,Oral (systemic),tablet, Codeine Sulfate,15 MG,Oral (systemic),tablet Drug allergy Active [facility] erythromycin Assertion Drug allergy Active [facility] vancomycin Assertion Drug allergy Active [facility] Immunizations No Data Provided for This Section Results Order Name Results Value Reference Range Date Interpretation Comments Source ELECTROLYTES AGAP 10.0 10.0 - 20.0 10/09/2018 [facility] ELECTROLYTES CO2 26 24 - 32 10/09/2018 [facility] ELECTROLYTES BUN 15 7 - 22 10/09/2018 [facility] ELECTROLYTES Creatinine Lvl 0.7 8 0.50 - 1.40 10/09/2018 [facility] ELECTROLYTES Calcium Lvl 8.4 8.5 - 10.5 10/09/2018 [facility] ELECTROLYTES Sodium Lvl 136 135 - 145 10/09/2018 [facility] ELECTROLYTES Chloride Lvl 104 95 - 109 10/09/2018 [facility] ELECTROLYTES Potassium Lvl 4.0 3.5 - 5.1 10/09/2018 [facility] ELECTROLYTES eGFR 119 10/09/2018 Result [...] should be multiplied by the estimated BMI. [facility] ELECTROLYTES Glucose Lvl 108 70 - 99 10/09/2018 [facility] MCH 30.0 27.0 - 31.0 10/09/2018 [facility] MCV 88.2 80.0 - 94.0 10/09/2018 [facility] MCHC 34.0 32.0 - 36.0 10/09/2018 [facility] Platelet 190 133 - 450 10/09/2018 [facility] RDW 12.7 11.5 - 14.5 10/09/2018 [facility] RBC 4.81 4.70 - 6.10 10/09/2018 [facility] Hct 42.4 42.0 - 54.0 10/09/2018 [facility] Hgb 14.4 14.0 - 18.0 10/09/2018 [facility] MPV 8.9 7.4 - 10.4 10/09/2018 [facility] WBC 14.2 3.7 - 10.4 10/09/2018 [facility] Eosinophils # 0.4 0.0 - 0.5 10/09/2018 [facility] Basophils # 0.1 0.0 - 0.2 10/09/2018 [facility] Lymphocytes # 2.4 1.0 - 5.5 10/09/2018 [facility] Eosinophils 2.8 0.0 - 4.0 10/09/2018 [facility] Basophils 0.5 0.0 - 1.0 10/09/2018 [facility] Monocytes # 1.3 0.0 - 0.8 10/09/2018 [facility] HEMATOLOGY Neutrophils # 10.1 1.5 - 8.1 10/09/2018 [facility] HEMATOLOGY Monocytes 8.8 2.0 - 12.0 10/09/2018 [facility] HEMATOLOGY Lymphocytes 16.8 20.0 - 40.0 10/09/2018 [facility] HEMATOLOGY Segs 71.1 45.0 - 75.0 10/09/2018 [facility] CARDIAC ENZYMES Troponin-I <0.02 0.00 - 0.40 10/08/2018 [facility] CARDIAC ENZYMES Troponin-I <0.02 0.00 - 0.40 10/08/2018 [facility] LIPIDS LDL (Calculated) 113 <=99 mg/dL 10/08/2018 [facility] LIPIDS VLDL 44 10/08/2018 [facility] LIPIDS Trig 221 <=149 mg/dL 10/08/2018 [facility] LIPIDS CHD Risk 6.06 4.00 - 7.30 10/08/2018 [facility] LIPIDS HDL 31 >=61 mg/dL 10/08/2018 [facility] LIPIDS Chol 188 <=199 mg/dL 10/08/2018 [facility] CARDIAC ENZYMES BNP 7 <=100 pg/mL 10/08/2018 [facility] CARDIAC ENZYMES Troponin-I <0.02 0.00 - 0.40 10/08/2018 [facility] CHEM PANEL Lipase Lvl 62 73 - 393 10/08/2018 [facility] CHEM PANEL Magnesium Lvl 2.1 1.8 - 2.4 10/08/2018 [facility] CHEM PANEL B/C Ratio 16 6 - 25 10/08/2018 [facility] CHEM PANEL AGAP 10.9 10.0 - 20.0 10/08/2018 [facility] CHEM PANEL Globulin 3.6 2.7 - 4.2 10/08/2018 [facility] CHEM PANEL A/G Ratio 1.1 0.7 - 1.6 10/08/2018 [facility] CHEM PANEL eGFR 121 10/08/2018 [...] Alk Phos 55 39 - 136 10/08/2018 [facility] CHEM PANEL Bili Total 0.3 0.2 - 1.3 10/08/2018 [facility] CHEM PANEL Glucose Lvl 96 70 - 99 10/08/2018 [facility] CHEM PANEL ALT 32 0 - 65 10/08/2018 [facility] CHEM PANEL Albumin Lvl 3.9 3.5 - 5.0 10/08/2018 [facility] CHEM PANEL AST 15 0 - 37 10/08/2018 [facility] CHEM PANEL Calcium Lvl 8.5 8.5 - 10.5 10/08/2018 [facility] CHEM PANEL Total Protein 7.5 6.4 - 8.4 10/08/2018 [facility] CHEM PANEL Potassium Lvl 3.9 3.5 - 5.1 10/08/2018 [facility] CHEM PANEL Creatinine Lvl 0.76 0.50 - 1.40 10/08/2018 [facility] CHEM PANEL Sodium Lvl 138 135 - 145 10/08/2018 [facility] CHEM PANEL Chloride Lvl 107 95 - 109 10/08/2018 [facility] CHEM PANEL CO2 24 24 - 32 10/08/2018 [facility] CHEM PANEL BUN 12 7 - 22 10/08/2018 [facility] HEMATOLOGY Basophils # 0.1 0.0 - 0.2 10/08/2018 [facility] HEMATOLOGY Monocytes # 1.0 0.0 - 0.8 10/08/2018 [facility] HEMATOLOGY Lymphocytes # 2.4 1.0 - 5.5 10/08/2018 [facility] HEMATOLOGY Neutrophils # 14.1 1.5 - 8.1 10/08/2018 [facility] HEMATOLOGY Eosinophils # 0.3 0.0 - 0.5 10/08/2018 [facility] HEMATOLOGY Lymphocytes 13.2 20.0 - 40.0 10/08/2018 [facility] HEMATOLOGY Segs 79.1 45.0 - 75.0 10/08/2018 [facility] HEMATOLOGY Monocytes 5.6 2.0 - 12.0 10/08/2018 [facility] HEMATOLOGY Basophils 0.5 0.0 - 1.0 10/08/2018 [facility] Eosinophils 1.6 0.0 - 4.0 10/08/2018 [facility] Hgb 15.2 14.0 - 18.0 10/08/2018 [facility] RBC 5.10 4.70 - 6.10 10/08/2018 [facility] WBC 17.8 3.7 - 10.4 10/08/2018 [facility] MPV 8.9 7.4 - 10.4 10/08/2018 [facility] Hct 44.8 42.0 - 54.0 10/08/2018 [facility] Platelet 218 133 - 450 10/08/2018 [facility] RDW 13.1 11.5 - 14.5 10/08/2018 [facility] MCHC 34.0 32.0 - 36.0 10/08/2018 [facility] MCH 29.8 27.0 - 31.0 10/08/2018 [facility] MCV 87.8 80.0 - 94.0 10/08/2018 [facility] PT 13.7 12.0 - 14.7 10/08/2018 [facility] PTT 34.1 22.9 - 35.8 10/08/2018 [facility] INR 1.07 0.85 - 1.17 10/08/2018 [facility] CHEM PANEL Magnesium Lvl 1.9 1.8 - 2.4 08/28/2018 [facility] CHEM PANEL eGFR 116 08/28/2018 Result Comment: [...] should be multiplied by the estimated BMI. [facility] CHEM PANEL Calcium Lvl 9.0 8.5 - 10.5 08/28/2018 [facility] CHEM PANEL Potassium Lvl 4.3 3.5 - 5.1 08/28/2018 [facility] CHEM PANEL Sodium Lvl 138 135 - 145 08/28/2018 [facility] CHEM PANEL Chloride Lvl 104 95 - 109 08/28/2018 [facility] CHEM PANEL CO2 24 24 - 32 08/28/2018 [facility] CHEM PANEL Glucose Lvl 89 70 - 99 08/28/2018 [facility] CHEM PANEL Creatinine Lvl 0.83 0.50 - 1.40 08/28/2018 [facility] CHEM PANEL BUN 11 7 - 22 08/28/2018 [facility] CHEM PANEL AGAP 14.3 10.0 - 20.0 08/28/2018 [facility] HEMATOLOGY Basophils # 0.1 0.0 - 0.2 08/28/2018 [facility] HEMATOLOGY Lymphocytes # 1.8 1.0 - 5.5 08/28/2018 [facility] HEMATOLOGY Monocytes # 0.7 0.0 - 0.8 08/28/2018 [facility] HEMATOLOGY Eosinophils # 0.1 0.0 - 0.5 08/28/2018 [facility] HEMATOLOGY Neutrophils # 6.8 1.5 - 8.1 08/28/2018 [facility] HEMATOLOGY Basophils 0.8 0.0 - 1.0 08/28/2018 [facility] HEMATOLOGY Segs 72.1 45.0 - 75.0 08/28/2018 [facility] HEMATOLOGY Lymphocytes 18.8 20.0 - 40.0 08/28/2018 [facility] HEMATOLOGY Eosinophils 1.3 0.0 - 4.0 08/28/2018 [facility] HEMATOLOGY Monocytes 7.0 2.0 - 12.0 08/28/2018 [facility] HEMATOLOGY PT 15.3 12.0 - 14.7 08/28/2018 [facility] HEMATOLOGY PTT 39.0 22.9 - 35.8 08/28/2018 [facility] HEMATOLOGY INR 1.23 0.85 - 1.17 08/28/2018 [facility] HEMATOLOGY MPV 9.4 7.4 - 10.4 08/28/2018 [facility] HEMATOLOGY Platelet 246 133 - 450 08/28/2018 [facility] HEMATOLOGY MCH 30.5 27.0 - 31.0 08/28/2018 [facility] HEMATOLOGY MCV 89.0 80.0 - 94.0 08/28/2018 [facility] HEMATOLOGY MCHC 34.3 32.0 - 36.0 08/28/2018 [facility] HEMATOLOGY Hct 49.0 42.0 - 54.0 08/28/2018 [facility] HEMATOLOGY RBC 5.51 4.70 - 6.10 08/28/2018 [facility] HEMATOLOGY Hgb 16.8 14.0 - 18.0 08/28/2018 [facility] HEMATOLOGY RDW 13.0 11.5 - 14.5 08/28/2018 [facility] HEMATOLOGY WBC 9.5 3.7 - 10.4 08/28/2018 [facility] BLOOD BANK RESULTS Antibody Scrn Negative (08/28/18 12:50 PM) 08/28/2018 [facility] BLOOD BANK RESULTS ABO/Rh A POS 08/28/2018 [facility] CHEM PANEL eGFR 119 07/29/2018 Result Comment: [...] should be multiplied by the estimated BMI. [facility] CHEM PANEL POC Creatinine 0.8 0.5 - 1.4 07/29/2018 [facility] Pathology Reports No Data Provided [...] changes of prior left orchiect catracho. SL: SHIRA-PC 10/08/2018 [facility] Chest wo contrast CT STUDY: [facility] wo contrast CT 10/08/2018 12:47 AM CDT Ordering Physician: Fabiola Alfaro MD Patient Name: HOLLIE NGUYEN MR: [id number] : 1985; Age: 33 years y/o Male [...] Hyperinflated but clear lungs. SL: PANCHOINTER-PC 10/08/2018 [facility] Chest 1view DX Clinical Indica [...] radiographically apparent acute ca rdiopulmonary process. SL: [id number] 10/07/2018 [facility] Scrotal/Testicle w Doppler US Clinical [...] left testicle (prior orchiectomy). SL: SYEDA 07/29/2018 [facility] Abdomen/Pelvis w IV contrast CT [...] to patient size -Use of iterative reconstruction Boond ue CT Radiation Dose DLP 555 mGy-cm [...] appendectomy. 4. Small bilateral renal calculi. SL: [id number] 07/29/2018 [facility] Consultation Notes No Data Provided for This Section Discharge Summaries No Data Provided for This Section History and Physicals No Data Provided for This Section Vital Signs Vital Sign Value Date Comments Source Heart Rate 57 10/09/2018 [facility] Respitory Rate 16 10/09/2018 [facility] Systolic (mm Hg) 117 10/09/2018 [facility] Diastolic (mm Hg) 74 10/09/2018 [facility] Temperature Oral (F) 98.1 F 10/09/2018 [facility] Systolic (mm Hg) 137 10/09/2018 [facility] Diastolic (mm Hg) 56 10/09/2018 [facility] Respitory Rate 16 10/09/2018 [facility] Heart Rate 58 10/09/2018 [facility] Temperature Oral (F) 97.5 F 10/09/2018 [facility] Temperature Oral (F) 98.4 F 10/09/2018 [facility] Respitory Rate 16 10/09/2018 [facility] Systolic (mm Hg) 123 10/09/2018 [facility] Diastolic (mm Hg) 70 10/09/2018 [facility] Heart Rate 60 10/09/2018 [facility] BMI Calculated 25.85 10/08/2018 [facility] Weight 70.455 10/08/2018 [facility] Height 165.1 cm 10/08/2018 [facility] BMI Calculated 25.85 10/08/2018 [facility] BMI Calculated 25.85 10/08/2018 [facility] Weight 70.455 10/08/2018 [facility] Height 165.1 cm 10/08/2018 [facility] Weight 70.455 10/08/2018 [facility] Height 165.1 cm 10/08/2018 [facility] Systolic (mm Hg) 128 08/28/2018 [facility] Diastolic (mm Hg) 69 08/28/2018 [facility] Systolic (mm Hg) 128 08/28/2018 [facility] Diastolic (mm Hg) 69 08/28/2018 [facility] Systolic (mm Hg) 126 08/28/2018 [facility] Diastolic (mm Hg) 71 08/28/2018 [facility] Weight 65.909 08/28/2018 [facility] Height 162.56 cm 08/28/2018 [facility] BMI Calculated 24.94 08/28/2018 [facility] Encounters Location Location Details Encounter Type Encounter Number Reason For Visit Attending Provider ADM Date DC Date Status Source [facility] [id number] Getachew Cabrales 07/29/2018 07/30/2018 [facility] Outpatient [id number] [facility] [place] 08/04/2018 Active [facility] [id number] [facility] [place] 08/04/2018 08/04/2018 [facility] Outpatient [id number] Margarito Rviera 08/28/2018 08/28/2018 [facility] Observation [id number] Celio Juarez 10/08/2018 10/09/2018 [facility] Outpatient [id number] Mansoor Isra 10/29/2018 Active [facility] Procedures Procedure Code Date Perfomer Comments Source Implantation of automatic cardioverter/d efibrillator, total system (AICD) [id number] [facility] Assessment and Plan Assessment and [...] trough reminder on 10/09 @ 12:15 Attn:RN, TYRAC, ONCE atorvastatin 10 mg TAB 10 mg 1 tab, PO, Bedtime doxycycline 50 mg CAP 100 mg 2 cap, PO, [id number] metoprolol succinate 25 mg ERT 25 mg 1 tab, PO, Daily miconazole 2% 30 gm TOP CRM 1 appl, TOP, BID ramipril 2.5 mg CAP 2.5 mg 1 cap, PO, Daily sodium chloride 0.9% 10 ml flush syr BD 10 ml, IVP, Q12H vancomycin INJ + sodium chloride 0.9% 250 mL INJ (for IV set) 250 mL 1,250 mg, IVPB, [id number] Continuous: (0) PRN: (6) acetaminophen 325 mg [...] LOS: 1 Midnight, Isma Justin MD, Admit Review/Approve Yes, Isolation: No Isolation/Standard Precautions, Cellulitis | Chest pain - initial concerns were for surgical site infection, though CT does not show any infectious etiology - complete serial torponin - cardiology and community health specialist consult s ubmitted - started on epiric antibiotics and pain control per protocol observation full code 10/09/2018 [facility] Plan of Care No Data [...] of years: 17; entered on: 10/08/18 10/08/2018 [facility] Social History TypeResponse Alcohol Never [...] of years: 17; entered on: 08/28/18 07/01/2018 [facility] Family History No Data Provided for This Section Advance Directives No Data Provided for This Section Functional Status No Data Provided for This Section
[2019-11-21] MEDS ORDERED: KETOROLAC TROMETHAMINE 30 MG/ML VIAL ONE (22:43)
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
--- NOTE | 2019-11-21 23:19 | Diagnostic Imaging Report ---
EXAM: Scrotal Ultrasound with Duplex INDICATION: Testicular pain COMPARISON: Abdominal CT 09/10/2019 TECHNIQUE: Transverse and longitudinal images were obtained of the scrotum with grayscale imaging, color Doppler and spectral waveform analysis. FINDINGS: Right testis: Size: 4 x 1.9 x 3 cm, normal in size. Echogenicity: Heterogeneous Mass/Cysts: None Left testis: Removed Epididymis: Appearance: Normal in size without increased vascularity. Mass/Cysts: None Extratesticular: Masses: None Hydrocele: None Varicocele: Slight varicocele. Doppler: Minimal/ possibly absent flow within the right testicle. Several provided images demonstrate absence of right testicular vascularity. IMPRESSION: Findings concerning for right testicle testicular torsion. The left testicle has been removed. Recommend urology consultation. Finding was discussed with Dr. Turner at 11:10 PM on 11/21/[address] Reeves via telephone. Signed by: Saroj Reeves DO on 11/21/2019 11:15 PM
[2019-11-21] MEDS ORDERED: LACTATED RINGER'S 1,000 ML ONE (23:59)
[2019-11-22] VITALS (14 sets, daily range): BP systolic 117–136; BP diastolic 60–81
[2019-11-22] MEDS ORDERED: LACTATED RINGER'S 1,000 ML INJ ONE
--- NOTE | 2019-11-22 00:05 | NUR ---
PT DEPARTED UNIT VIA STRETCHER WITH OR STAFF
[2019-11-22] MEDS ORDERED: BUPIVACAINE 0.25% 30ML SDV INJ ONE (00:18)
[2019-11-22] MEDS ORDERED: D5.45%NS/KCL 20MEQ 1,000 ML IV SCH (00:30)
[2019-11-22] MEDS ORDERED: NALOXONE HCL INJ 0.4 MG/ML AMP IV PRN (00:30)
[2019-11-22] MEDS ORDERED: DIPHENHYDRAMINE HCL INJ 50 MG/ML VIAL IM PRN (00:30)
[2019-11-22] MEDS ORDERED: ACETAMINOPHEN 1000 MG/100 ML IV PRN (00:30)
[2019-11-22] MEDS ORDERED: ONDANSETRON HCL INJ 2MG/ML 2ML 2 MG/ML VIAL IV PRN ×2 (00:30→10:15)
[2019-11-22 00:42] LABS: CLARITY,URINE CLOUDY (CLEAR); COLOR,URINE YELLOW (YELLOW)
[2019-11-22 00:43] LABS: BACTERIA,URINE MANY /HPF; BILIRUBIN,URINE NEGATIVE (NEGATIVE); EPITHELIAL CELLS,URINE MANY /LPF; KETONES,URINE NEGATIVE (NEGATIVE); LEUKOCYTE ESTERASE ,URINE SMALL (NEGATIVE); NITRITE,URINE NEGATIVE (NEGATIVE); PROTEIN,URINE DIPSTICK NEGATIVE (NEGATIVE); URINE UROBILINOGEN 0.2 mg/dL (0.2 - 1); WBC,URINE (MAN) >50 /HPF (0-5)
[2019-11-22] MEDS ORDERED: DESMOPRESSIN ACETATE ONE ×2 (01:16→01:20)
[2019-11-22] MEDS ORDERED: SODIUM CHLORIDE 0.9% 50ML 50 ML ONE (01:23)
[2019-11-22] MEDS: MORPHINE SULFATE 1 MG/ML 30ML PCA IV PRN ×2 (02:10→12:47)
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
--- OUTSIDE RECORDS SUMMARY | 2019-11-22 03:19 | XMS REPORT | Continuity of Care Document ---
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 Cardiomyopathy (disorder) Reso lved Problem [facility], [place] CELLULITIS, UNSPECIFIED Active [facility] CHEST PAIN, UNSPECIFIED Active [facility] MALIGNANT NEOPLASM OF DESCENDED LEFT ABISAI Active [facility] Medications Medication Details Route Status Patient Instructions Ordering Provider Order Date Source RN-Vanco trough reminder on 10/09 @ 12:15 RN- Vanco trough reminder on 10/09 @ 12:15, Attn:JOHNATHON, Drug form: MISC, Route: MISC, ONCE, 10/09/18 11:45:00 CDT, Stop date: 10/09/18 11:45:00 CDT, 0 Inactive 10/09/2018 [facility] Acetaminophen 300 MG / Codeine Phosphate 30 MG Oral Tablet [Tylenol with Codeine #3] 1 tab, PO, Q6H, PRN Pain, X 7 day, # 28 tab, 0 Refill(s) Active 10/09/2018 [facility] Amoxicillin 875 MG / Clavulanate 125 MG Oral Tablet [Augmentin 875-mg] 875 mg = 1 tab, PO, Q12H, X 14 day, # 28 tab, 0 Refill(s), Pharmacy: [facility] [id number] Active 10/09/2018 [facility] Doxycycline Monohydrate 100 MG Oral Capsule 100 mg = 1 cap, PO, Q12H, X 10 day, # 20 cap, 0 Refill(s), Pharmacy: [facility] [id number] Active 10/09/2018 [facility] linezolid Notes: (Same as: Zyv ox) Inactive 10/09/2018 [facility] morphine 0.5 mg/mL preservative-free inj ectable solution 4 mg, Route: IVP, Q4H, Dosing Weight 70. 455, kg, PRN Pain Score 7-10, Start date: 10/08/18 23:11:00 CDT, Duration: 30 day, Stop date: 11/07/18 23:10:00 CDT No Longer Active 10/09/2018 [facility] Morphine Notes: (Same as:MORPh ine Sulfate) No Longer Active 10/09/2018 [facility] atorvastatin Notes: (Same As: Lipitor) No Longer Active 10/09/2018 [facility] morphine Sulfate Notes: (Same as:MORPhine Sulfate) Inactive 10/09/2018 [facility] Doxycycline Notes: (Same as: V ibramycin) No milk/antacids/iron. Take 1 hour before or 2 hours after dairy products No Longer Active 10/08/2018 [facility] Rocephin Notes: (Same As: Roce phin) Inactive 10/08/2018 [facility] Saline Flush 0.9% Notes: (Same as: BD Posiflush) No Longer Active 10/08/2018 [facility] Ramipril Notes: (Same as:Altac e) No Longer Active 10/08/2018 [facility] Miconazole Nitrate 0.02 MG/MG Topical Ointment Notes: (Same as: Monistat Derm, Mication) For external use only. No Longer Active 10/08/2018 [facility] 24 HR Metoprolol Tartrate 25 MG Extended Release Tablet [Toprol] Notes: (Same as: Toprol XL) Do Not Crush No Longer Active 10/08/2018 [facility] Benadryl 25 mg, 1 tab, Route: PO, Drug form: TAB, ONCE, Dosing Weight 70.455, kg, Start date: 10/08/18 3:27:00 CDT, Stop date: 10/08/18 3:27:00 CDT, 0 Inactive 10/08/2018 [facility] Acetaminophen 300 MG / Codeine Phosphate 30 MG Oral Tablet [Tylenol with Codeine #3] Notes: Do not exceed 4gm/day of acetamin ophen. (Same as: Tylenol with Codeine # 3) No Longer Active 10/08/2018 [facility] Vancomycin 1 ea, Route: MISC, ONCALL, Dosing Weight 70.455, kg, Start date: 10/08/18 1:00:00 CDT, Duration: 7 day, Stop date: 10/15/18 0:59:00 CDT, Pharmacy to dose, ABX Indication: Skin/Soft Tissue Infection Inactive 10/08/2018 [facility] vancomycin + Sodium Chloride 0.9% IV 250 mL 2001 mg: infuse over 2.5 hours For adult patients only: Round to nearest 250 mg per Medical Staff approval MEDICATION WASTE Product Size: 1000 mg Product Wasted: ___ mg No Longer Active 10/08/2018 [facility] Saline Flush 0.9% Notes: (Same as: BD Posiflush) No Longer Active 10/08/2018 [facility] Acetaminophen Notes: Do not ex ceed 4 gm/day. (Same as: Tylenol) No Longer Active 10/08/2018 [facility] Ondansetron Notes: (Same as: Z danaran) No Longer Active 10/08/2018 [facility] Nitroglycerin Notes: (Same as: Nitroquick, Nitrostat) "Do Not Crush" Sublingual tablet No Longer Active 10/08/2018 [facility] Zofran 4 mg, Route: IVP, Drug form: INJ, ONCE, Dosing Weight 70.455, kg, Priority: STAT, Start date: 10/07/18 23:35:00 CDT, Stop date: 10/07/18 23:35:00 CDT Inactive 10/08/2018 [facility] Morphine 4 mg, Route: IVP, ONC E, Dosing Weight 70.455, kg, Priority: STAT, Start date: 10/07/18 23:35:00 CDT, Stop date: 10/07/18 23:35:00 CDT Inactive 10/08/2018 [facility] Tramadol Notes: Not to exceed 400mg/day. (Same As: Ultram) Inactive 08/28/[address] [facility] Sodium Chloride 0.9% IV 400 mL 400 mL, Rate: 20 ml/hr, Infuse over: 20 hr, Route: IV, Dosing Weight 65.909 kg, Total Volume: 400, Start date: 08/28/18 15:04:00 CDT, Duration: 24 hr, Stop date: 08/29/18 15:03:00 CDT, 1.74, m2 Inactive 08/28/[address] [facility] Nitroglycerin Notes: (Same as: Nitroquick, Nitrostat) "Do Not Crush" Sublingual tablet Inactive 08/28/2018 [facility] Sodium Chloride 0.9% IV 1,000 mL 1,000 mL, Rate: 75 ml/hr, Infuse over: 13.3 hr, Route: IV, Dosing Weight 65.909 kg, Total Volume: 1,000, Start date: 08/28/18 12:46:00 CDT, Duration: 30 day, Stop date: 09/27/18 12:45:00 CDT, 1.74, m2 Inactiv e 08/28/[address] [facility] Omnipaque 300 injectable solution Notes: (Same as:Omnipaque 300). WASTE: F/P - Black; E - Municipal Trash Bin Active 07/29/2018 [facility] Allergies, Adverse Reactions, Alerts Substance Category Reaction Severity Reaction type Status Date Reported Comments Source sulfa drugs Assertion Drug allergy Active [facility] azithromycin Assertion Drug allergy Active [facility] aspirin Assertion cannot take d/t Von Willebrand disease Amauri g allergy Active [facility] codeine sulfate Assertion Codeine Sulfate,15 MG,Oral (systemic),tablet, Codeine Sulfate,15 MG,Oral (systemic),tablet Drug allergy Active [facility] erythromycin Assertion Drug allergy Active [facility] vancomycin Assertion Drug allergy Active [facility] Immunizations No Data Provided for This Section Results Order Name Results Value Reference Range Date Interpretation Comments Source ELECTROLYTES AGAP 10.0 10.0 - 20.0 10/09/2018 [facility] ELECTROLYTES CO2 26 24 - 32 10/09/2018 [facility] ELECTROLYTES BUN 15 7 - 22 10/09/2018 [facility] ELECTROLYTES Creatinine Lvl 0.7 8 0.50 - 1.40 10/09/2018 [facility] ELECTROLYTES Calcium Lvl 8.4 8.5 - 10.5 10/09/2018 [facility] ELECTROLYTES Sodium Lvl 136 135 - 145 10/09/2018 [facility] ELECTROLYTES Chloride Lvl 104 95 - 109 10/09/2018 [facility] ELECTROLYTES Potassium Lvl 4.0 3.5 - 5.1 10/09/2018 [facility] ELECTROLYTES eGFR 119 10/09/2018 Result [...] should be multiplied by the estimated BMI. [facility] ELECTROLYTES Glucose Lvl 108 70 - 99 10/09/2018 [facility] MCH 30.0 27.0 - 31.0 10/09/2018 [facility] MCV 88.2 80.0 - 94.0 10/09/2018 [facility] MCHC 34.0 32.0 - 36.0 10/09/2018 [facility] Platelet 190 133 - 450 10/09/2018 [facility] RDW 12.7 11.5 - 14.5 10/09/2018 [facility] RBC 4.81 4.70 - 6.10 10/09/2018 [facility] Hct 42.4 42.0 - 54.0 10/09/2018 [facility] Hgb 14.4 14.0 - 18.0 10/09/2018 [facility] MPV 8.9 7.4 - 10.4 10/09/2018 [facility] WBC 14.2 3.7 - 10.4 10/09/2018 [facility] Eosinophils # 0.4 0.0 - 0.5 10/09/2018 [facility] Basophils # 0.1 0.0 - 0.2 10/09/2018 [facility] Lymphocytes # 2.4 1.0 - 5.5 10/09/2018 [facility] Eosinophils 2.8 0.0 - 4.0 10/09/2018 [facility] Basophils 0.5 0.0 - 1.0 10/09/2018 [facility] Monocytes # 1.3 0.0 - 0.8 10/09/2018 [facility] HEMATOLOGY Neutrophils # 10.1 1.5 - 8.1 10/09/2018 [facility] HEMATOLOGY Monocytes 8.8 2.0 - 12.0 10/09/2018 [facility] HEMATOLOGY Lymphocytes 16.8 20.0 - 40.0 10/09/2018 [facility] HEMATOLOGY Segs 71.1 45.0 - 75.0 10/09/2018 [facility] CARDIAC ENZYMES Troponin-I <0.02 0.00 - 0.40 10/08/2018 [facility] CARDIAC ENZYMES Troponin-I <0.02 0.00 - 0.40 10/08/2018 [facility] LIPIDS LDL (Calculated) 113 <=99 mg/dL 10/08/2018 [facility] LIPIDS VLDL 44 10/08/2018 [facility] LIPIDS Trig 221 <=149 mg/dL 10/08/2018 [facility] LIPIDS CHD Risk 6.06 4.00 - 7.30 10/08/2018 [facility] LIPIDS HDL 31 >=61 mg/dL 10/08/2018 [facility] LIPIDS Chol 188 <=199 mg/dL 10/08/2018 [facility] CARDIAC ENZYMES BNP 7 <=100 pg/mL 10/08/2018 [facility] CARDIAC ENZYMES Troponin-I <0.02 0.00 - 0.40 10/08/2018 [facility] CHEM PANEL Lipase Lvl 62 73 - 393 10/08/2018 [facility] CHEM PANEL Magnesium Lvl 2.1 1.8 - 2.4 10/08/2018 [facility] CHEM PANEL B/C Ratio 16 6 - 25 10/08/2018 [facility] CHEM PANEL AGAP 10.9 10.0 - 20.0 10/08/2018 [facility] CHEM PANEL Globulin 3.6 2.7 - 4.2 10/08/2018 [facility] CHEM PANEL A/G Ratio 1.1 0.7 - 1.6 10/08/2018 [facility] CHEM PANEL eGFR 121 10/08/2018 [...] Alk Phos 55 39 - 136 10/08/2018 [facility] CHEM PANEL Bili Total 0.3 0.2 - 1.3 10/08/2018 [facility] CHEM PANEL Glucose Lvl 96 70 - 99 10/08/2018 [facility] CHEM PANEL ALT 32 0 - 65 10/08/2018 [facility] CHEM PANEL Albumin Lvl 3.9 3.5 - 5.0 10/08/2018 [facility] CHEM PANEL AST 15 0 - 37 10/08/2018 [facility] CHEM PANEL Calcium Lvl 8.5 8.5 - 10.5 10/08/2018 [facility] CHEM PANEL Total Protein 7.5 6.4 - 8.4 10/08/2018 [facility] CHEM PANEL Potassium Lvl 3.9 3.5 - 5.1 10/08/2018 [facility] CHEM PANEL Creatinine Lvl 0.76 0.50 - 1.40 10/08/2018 [facility] CHEM PANEL Sodium Lvl 138 135 - 145 10/08/2018 [facility] CHEM PANEL Chloride Lvl 107 95 - 109 10/08/2018 [facility] CHEM PANEL CO2 24 24 - 32 10/08/2018 [facility] CHEM PANEL BUN 12 7 - 22 10/08/2018 [facility] HEMATOLOGY Basophils # 0.1 0.0 - 0.2 10/08/2018 [facility] HEMATOLOGY Monocytes # 1.0 0.0 - 0.8 10/08/2018 [facility] HEMATOLOGY Lymphocytes # 2.4 1.0 - 5.5 10/08/2018 [facility] HEMATOLOGY Neutrophils # 14.1 1.5 - 8.1 10/08/2018 [facility] HEMATOLOGY Eosinophils # 0.3 0.0 - 0.5 10/08/2018 [facility] HEMATOLOGY Lymphocytes 13.2 20.0 - 40.0 10/08/2018 [facility] HEMATOLOGY Segs 79.1 45.0 - 75.0 10/08/2018 [facility] HEMATOLOGY Monocytes 5.6 2.0 - 12.0 10/08/2018 [facility] HEMATOLOGY Basophils 0.5 0.0 - 1.0 10/08/2018 [facility] Eosinophils 1.6 0.0 - 4.0 10/08/2018 [facility] Hgb 15.2 14.0 - 18.0 10/08/2018 [facility] RBC 5.10 4.70 - 6.10 10/08/2018 [facility] WBC 17.8 3.7 - 10.4 10/08/2018 [facility] MPV 8.9 7.4 - 10.4 10/08/2018 [facility] Hct 44.8 42.0 - 54.0 10/08/2018 [facility] Platelet 218 133 - 450 10/08/2018 [facility] RDW 13.1 11.5 - 14.5 10/08/2018 [facility] MCHC 34.0 32.0 - 36.0 10/08/2018 [facility] MCH 29.8 27.0 - 31.0 10/08/2018 [facility] MCV 87.8 80.0 - 94.0 10/08/2018 [facility] PT 13.7 12.0 - 14.7 10/08/2018 [facility] PTT 34.1 22.9 - 35.8 10/08/2018 [facility] INR 1.07 0.85 - 1.17 10/08/2018 [facility] CHEM PANEL Magnesium Lvl 1.9 1.8 - 2.4 08/28/[address] [facility] CHEM PANEL eGFR 116 08/28/2018 Result [...] should be multiplied by the estimated BMI. [facility] CHEM PANEL Calcium Lvl 9.0 8.5 - 10.5 08/28/[address] [facility] CHEM PANEL Potassium Lvl 4.3 3.5 - 5.1 08/28/[address] [facility] CHEM PANEL Sodium Lvl 138 135 - 145 08/28/[address] [facility] CHEM PANEL Chloride Lvl 104 95 - 109 08/28/[address] [facility] CHEM PANEL CO2 24 24 - 32 08/28/[address] [facility] CHEM PANEL Glucose Lvl 89 70 - 99 08/28/[address] [facility] CHEM PANEL Creatinine Lvl 0.83 0.50 - 1.40 08/28/[address] [facility] CHEM PANEL BUN 11 7 - 22 08/28/[address] [facility] CHEM PANEL AGAP 14.3 10.0 - 20.0 08/28/[address] [facility] HEMATOLOGY Basophils # 0.1 0.0 - 0.2 08/28/[address] [facility] HEMATOLOGY Lymphocytes # 1.8 1.0 - 5.5 08/28/[address] [facility] HEMATOLOGY Monocytes # 0.7 0.0 - 0.8 08/28/[address] [facility] HEMATOLOGY Eosinophils # 0.1 0.0 - 0.5 08/28/[address] [facility] HEMATOLOGY Neutrophils # 6.8 1.5 - 8.1 08/28/[address] [facility] HEMATOLOGY Basophils 0.8 0.0 - 1.0 08/28/[address] [facility] HEMATOLOGY Segs 72.1 45.0 - 75.0 08/28/[address] [facility] HEMATOLOGY Lymphocytes 18.8 20.0 - 40.0 08/28/[address] [facility] HEMATOLOGY Eosinophils 1.3 0.0 - 4.0 08/28/[address] [facility] HEMATOLOGY Monocytes 7.0 2.0 - 12.0 08/28/[address] [facility] HEMATOLOGY PT 15.3 12.0 - 14.7 08/28/[address] [facility] HEMATOLOGY PTT 39.0 22.9 - 35.8 08/28/[address] [facility] HEMATOLOGY INR 1.23 0.85 - 1.17 08/28/[address] [facility] HEMATOLOGY MPV 9.4 7.4 - 10.4 08/28/[address] [facility] HEMATOLOGY Platelet 246 133 - 450 08/28/[address] [facility] HEMATOLOGY MCH 30.5 27.0 - 31.0 08/28/[address] [facility] HEMATOLOGY MCV 89.0 80.0 - 94.0 08/28/[address] [facility] HEMATOLOGY MCHC 34.3 32.0 - 36.0 08/28/[address] [facility] HEMATOLOGY Hct 49.0 42.0 - 54.0 08/28/[address] [facility] HEMATOLOGY RBC 5.51 4.70 - 6.10 08/28/[address] [facility] HEMATOLOGY Hgb 16.8 14.0 - 18.0 08/28/[address] [facility] HEMATOLOGY RDW 13.0 11.5 - 14.5 08/28/[address] [facility] HEMATOLOGY WBC 9.5 3.7 - 10.4 08/28/[address] [facility] BLOOD BANK RESULTS Antibody Scrn Negative (08/28/18 12:50 PM) 08/28/[address] [facility] BLOOD BANK RESULTS ABO/Rh A POS 08/28/[address] [facility] CHEM PANEL eGFR 119 07/29/2018 Result [...] should be multiplied by the estimated BMI. [facility] CHEM PANEL POC Creatinine 0.8 0.5 - 1.4 07/29/2018 [facility] Pathology Reports No Data Provided [...] prior left orchiect catracho. SL: SHIRA-PC 10/08/2018 [facility] Chest wo contrast CT STUDY: [facility] wo contrast CT 10/08/2018 12:47 AM CDT Ordering Physician: Fabiola Alfaro MD Patient Name: HOLLIE NGUYEN MR: [id number] : 1985; Age: 33 years y/o Male [...] Hyperinflated but clear lungs. SL: PANCHOINTER-PC 10/08/2018 [facility] Chest 1view DX Clinical Indica [...] radiographically apparent acute ca rdiopulmonary process. SL: [id number] 10/07/2018 [facility] Scrotal/Testicle w Doppler US Clinical [...] left testicle (prior orchiectomy). SL: SYEDA 07/29/2018 [facility] Abdomen/Pelvis w IV contrast CT [...] to patient size -Use of iterative reconstruction Node1 ue CT Radiation Dose DLP 555 mGy-cm [...] appendectomy. 4. Small bilateral renal calculi. SL: [id number] 07/29/2018 [facility] Consultation Notes No Data Provided for This Section Discharge Summaries No Data Provided for This Section History and Physicals No Data Provided for This Section Vital Signs Vital Sign Value Date Comments Source Heart Rate 57 10/09/2018 [facility] Respitory Rate 16 10/09/2018 [facility] Systolic (mm Hg) 117 10/09/2018 [facility] Diastolic (mm Hg) 74 10/09/2018 [facility] Temperature Oral (F) 98.1 F 10/09/2018 [facility] Systolic (mm Hg) 137 10/09/2018 [facility] Diastolic (mm Hg) 56 10/09/2018 [facility] Respitory Rate 16 10/09/2018 [facility] Heart Rate 58 10/09/2018 [facility] Temperature Oral (F) 97.5 F 10/09/2018 [facility] Temperature Oral (F) 98.4 F 10/09/2018 [facility] Respitory Rate 16 10/09/2018 [facility] Systolic (mm Hg) 123 10/09/2018 [facility] Diastolic (mm Hg) 70 10/09/2018 [facility] Heart Rate 60 10/09/2018 [facility] BMI Calculated 25.85 10/08/2018 [facility] Weight 70.455 10/08/2018 [facility] Height 165.1 cm 10/08/2018 [facility] BMI Calculated 25.85 10/08/2018 [facility] BMI Calculated 25.85 10/08/2018 [facility] Weight 70.455 10/08/2018 [facility] Height 165.1 cm 10/08/2018 [facility] Weight 70.455 10/08/2018 [facility] Height 165.1 cm 10/08/2018 [facility] Systolic (mm Hg) 128 08/28/[address] [facility] Diastolic (mm Hg) 69 08/28/[address] [facility] Systolic (mm Hg) 128 08/28/[address] [facility] Diastolic (mm Hg) 69 08/28/[address] [facility] Systolic (mm Hg) 126 08/28/[address] [facility] Diastolic (mm Hg) 71 08/28/[address] [facility] Weight 65.909 08/28/[address] [facility] Height 162.56 cm 08/28/[address] [facility] BMI Calculated 24.94 08/28/[address] [facility] Encounters Location Location Details Encounter Type Encounter Number Reason For Visit Attending Provider ADM Date DC Date Status Source [facility] Outpatient [id number] Getachew Cabrales 07/29/2018 07/30/2018 [facility] Outpatient [id number] [facility] [place] 08/04/2018 Active [facility] [place] [facility] Pre-Reg [id number] [facility] [place] 08/04/2018 08/04/2018 [facility] Bedded Outpatient [id number] Margarito Rivera 08/28/2018 08/28/2018 [facility] Observation [id number] Celio Juarez 10/08/2018 10/09/2018 [facility] Outpatient [id number] Mansoor Isra 10/29/2018 Active [facility] Procedures Procedure Code Date Perfomer Comments Source Implantation of automatic cardioverter/d efibrillator, total system (AICD) [id number] [facility] Assessment and Plan Assessment and [...] mg CAP 100 mg 2 cap, PO, [id number] metoprolol succinate 25 mg ERT 25 mg 1 tab, PO, Daily miconazole 2% 30 gm TOP CRM 1 appl, TOP, BID ramipril 2.5 mg CAP 2.5 mg 1 cap, PO, Daily sodium chloride 0.9% 10 ml flush syr BD 10 ml, IVP, Q12H vancomycin INJ + sodium chloride 0.9% 250 mL INJ (for IV set) 250 mL 1,250 mg, IVPB, [id number] Continuous: (0) PRN: (6) acetaminophen 325 mg [...] - complete serial torponin - cardiology and solar site assessment specialist consult s ubmitted - started on epiric antibiotics and pain control per protocol observation full code 10/09/2018 [facility] Plan of Care No Data [...] of years: 17; entered on: 10/08/18 10/08/2018 [facility] Social History TypeResponse Alcohol Never [...] of years: 17; entered on: 08/28/18 07/01/[address] [facility] Family History No Data Provided for This Section Advance Directives No Data Provided for This Section Functional Status No Data Provided for This Section
--- NOTE | 2019-11-22 04:35 | Operative Report ---
DATE OF PROCEDURE: 11/22/2019 SURGEON: Kyle Eaton MD PREOPERATIVE DIAGNOSIS: Right testicular torsion. POSTOPERATIVE DIAGNOSES: 1. Right testicular torsion. 2. Right hydrocele. OPERATIONS PERFORMED: 1. Right scrotal exploration. 2. Excision of right hydrocele. 3. Right orchidopexy. 4. Regional nerve block (separate procedure performed for postoperative pain control and not required for the actual performance of surgery, which was done under general anesthesia). ANESTHESIA: General. COMPLICATIONS: None. CLINICAL SUMMARY: Jv Rios is a complicated 34-year-old man with numerous medical problems. The patient has a pacemaker. He has a defibrillator. He has Von Willebrand's disease and he has had testicular cancer. He is status post left orchiectomy. He was in his baseline health, when at 8 p.m. on the evening of November 20, he had severe right-sided testicular pain and elevation of the right testicle. The patient called me, I told him to immediately go to the emergency room and he did. In the emergency room, they performed an ultrasound and deemed that the patient had no arterial flow in his right testis. We immediately posted the patient for stat scrotal exploration and management. The patient is aware of the risks of bleeding, infection, injury to adjacent structures, need for additional procedures, possible permanent infertility, possible permanent hypogonadism. He understood these risks and elected to proceed. PROCEDURE IN DETAIL: Informed consent was verified. Jv Rios was properly identified, taken to the operating room, placed on the operating table in supine position. Anesthesia was uneventfully begun. The patient's genitalia were then shaved, prepared, and draped in usual sterile fashion. Right scrotal incision was made, carried through all layers of the scrotum until we reached the tunica vaginalis. We isolated the tunica vaginalis, there was an obvious hydrocele. The testis upon initial exploration was elevated and seemed to be . We moved the testis down into the scrotum and isolated it too. We incised the tunica vaginalis and evacuated the hydrocele. We then excised the excess hydrocele sac as well as small scrotal plural was somewhat adherent to the anterior tunica albuginea. The testis appeared viable, did not appear necrotic. We made sure that the spermatic cord was aligned. There was a torsion present, it seems that it detorsed as we were performing exploration. Marcaine without epinephrine was utilized to infiltrate subcutaneously circumferentially around the incision. We then infiltrated Marcaine into the spermatic cord cephalad to where we performed surgery. This regional block was done for postoperative pain control and not required for the actual performance of the surgery. This was done under general anesthesia. Three 3-0 silk sutures were then utilized in triangular fashion, one at the lateral edge near the epididymis, one at the medial edge of the tunica albuginea and one inferiorly near the tail of the epididymis anteriorly. We then approximated with the silk sutures to their respective position, making sure to incorporate the dartos layer into the suture. The patient should avoid any future torsion. Copious irrigation was performed due to the fact the patient has coagulopathy with Von Willebrand's disease, we decided to place a quarter-inch Eliseo drain through a separate stab incision, secured to the skin with 0 chromic suture. We then copiously irrigated. The incision was approximated in 2 layers utilizing 3-0 chromic suture in running fashion. Sterile dressings were applied. The patient was uneventfully reversed from anesthesia and taken to recovery room in stable condition. There were no complications to the procedure. He tolerated the procedure well. We will admit the patient for observation due to his potential coagulopathy as well as his numerous medical problems including heart machines, ongoing urologic followup . Kyle Eaton MD [place]/MODL /[id number]
[2019-11-22 06:49] LABS: PARTIAL THROMBOPLASTIN TIME 33.9 seconds (23.8-35.5)
--- NOTE | 2019-11-22 07:00 | NUR ---
BEDSIDE SHIFT REPORT RECEIVED FROM RESIDENTIAL SALES REPRESENTATIVE RN. PT DENIES NEEDS AT THIS TIME.
[2019-11-22 07:21] LABS: INR 0.94
[2019-11-22] MEDS: CEFAZOLIN SOD 1 GM/NS 50ML 50 ML IV SCH ×3 (08:07→21:40)
[2019-11-22] MEDS: DOCUSATE SODIUM 100 MG CAP PO SCH ×2 (08:23→17:04)
--- NOTE | 2019-11-22 11:21 | History and Physical ---
PRIMARY CARE PHYSICIAN: Hadley Garcia DO. COW TESTER: Kyle Eaton MD. CHIEF COMPLAINT: Testicular torsion on the right, status post testicular removal. HISTORY OF PRESENT ILLNESS: The patient is a 34-year-old male with left testicular removal in the past. The patient also has history of colorectal cancer with partial bowel removal with clip in the sigmoid colon area. The patient also has nonischemic cardiomyopathy. He has an AICD in place to the left upper chest area. The patient came into the hospital with testicular pelvic pain and the patient is status post right testicular surgical intervention. The operative note from Dr. Eaton, including right scrotal exploration, excision of the right hydrocele and right orchidopexy. The patient is currently stable. He is on MEDICAL SALES CONSULTANT pump. He is also on IV fluids. Adjustment of his medication will be made. The patient is otherwise stable at this time. No chest pain. No shortness of breath. Lower extremity, there is no edema. The patient is stable. PAST MEDICAL HISTORY: Nonischemic cardiomyopathy. The patient has AICD. Colorectal cancer with previous surgical intervention. Testicular cancer with left testicle removal and now status post right testicle removal secondary to torsion. The patient has dyslipidemia, von Willebrand's disease, osteoarthritis, obesity. PAST SURGICAL HISTORY: Ankle surgery, appendectomy. Cholecystectomy. Left testicle removal and now status post right testicle removal. AICD for nonischemic cardiomyopathy. SOCIAL HISTORY: The patient does not smoke or use alcohol. No regular drug. ALLERGIES: SULFA, ERYTHROMYCIN, BASE ANTIBIOTICS. HOME MEDICATIONS: The patient is on Lipitor, metoprolol succinate, pantoprazole, and ramipril. PHYSICAL EXAMINATION: VITAL SIGNS: Temperature is 97, blood pressure 131/75, pulse rate 60, respirations 18. GENERAL: The patient is not in acute distress, awake. HEENT: Normocephalic, atraumatic. Anicteric. NECK: Supple grossly. PULMONARY: Diminished breath sounds. CARDIOVASCULAR: AICD left chest. Regular rate and rhythm. ABDOMEN: Obese. PELVIC: Status post right testicle removal. EXTREMITIES: No cyanosis or edema. NEUROLOGIC: No gross focal deficit. LABORATORY DATA: Cloudy urine with wbc greater than 50, many bacteria. Coagulation INR 0.94. SEROLOGY: Coronavirus is still pending. Laboratory from previously still pending. IMPRESSION: 1. Right testicular torsion, status post procedure to remove. 2. Baseline nonischemic cardiomyopathy with AICD. 3. Baseline hypertension. 4. Dyslipidemia. 5. Compensated congestive heart failure. 6. Obesity. PLAN: Discontinue IV fluids. Antibiotics. Incentive spirometry. SCD while in bed. Pain control. Home medication adjustment. The patient will be monitored closely. Treat the urinary tract infection. MD CHANTALE Gallegos/CORTNEY /[id number]
[2019-11-22] MEDS ORDERED: DEXAMETHASONE SOD PHOS INJ 4 MG/ML VIAL ONE (14:35)
[2019-11-22] MEDS ORDERED: CEFAZOLIN SOD 1 GM VIAL ONE (14:35)
[2019-11-22] MEDS ORDERED: PROPOFOL IV EMULSION 10 MG/ML 20 ML VIAL ONE (14:35)
[2019-11-22] MEDS ORDERED: LIDOCAINE HCL 2% LOCAL INJ 5 ML SDV VIAL INJ ONE (14:35)
[2019-11-22] MEDS ORDERED: SEVOFLURANE INHAL SOLN 250 ML PEN BTL ONE (14:35)
[2019-11-22] MEDS ORDERED: ONDANSETRON HCL INJ 2MG/ML 2ML 2 MG/ML VIAL ONE (14:35)
[2019-11-22] MEDS ORDERED: ROCURONIUM BROMIDE 10 MG/ML 5ML VIAL IV ONE (14:35)
[2019-11-22] MEDS: PANTOPRAZOLE SOD 40 MG TABEC PO SCH (17:04)
--- NOTE | 2019-11-22 19:25 | NUR ---
Bedside shift report received from Day RN. Pt is alert and oriented x3. Pt diet well. CLINICAL ACCOUNT EXECUTIVE pump Morphine effectively releaving pain. Dressing dry and intact. Pt voiding without difficulty. Call light within reach. Bed in low position.
[2019-11-22] MEDS ORDERED: ATORVASTATIN 10 MG TAB PO SCH (21:00)
[2019-11-22] MEDS ORDERED: RAMIPRIL 2.5 MG CAP PO SCH (21:00)
[2019-11-22] MEDS ORDERED: METOPROLOL SUCCINATE 50 MG TAB XL PO SCH (21:00)
[2019-11-22] MEDS ORDERED: SODIUM CHLORIDE 0.9% 250ML 250 ML ONE (21:31)
[2019-11-23] VITALS: BP 136/65
[2019-11-23] MEDS: MORPHINE SULFATE 2 MG/ML SYR 1ML IV PRN ×3 (03:30→08:51)
[2019-11-23 04:00] VITALS: BP 123/75
[2019-11-23 06:09] LABS: BASOPHILS # (AUTO) 0.1 (0.0-0.1); BASOPHILS % 0.3 % (0.0-1.0); EOSINOPHILS # (AUTO) 0.1 (0.0-0.4); EOSINOPHILS % 0.6 % (0.0-6.0); HEMATOCRIT 41.1 % (38.2-49.6); LYMPHOCYTES # (AUTO) 2.3 (1.0-3.2); MEAN CORPUSCULAR HEMOGLOBIN 28.6 pg (28-32); MEAN CORPUSCULAR HGB CONC 31.6 g/dL (31-35); MEAN CORPUSCULAR VOLUME 90.5 fL (81-99); MONOCYTES # (AUTO) 1.1 (0.2-0.8); MONOCYTES % 6.3 % (4.4-11.3); NEUTROPHILS # (AUTO) 14.2 (2.1-6.9); NEUTROPHILS % 79.2 % (38.7-80.0); PLATELET COUNT 247 x10e3/uL (140-360); RED BLOOD COUNT 4.54 x10e6/uL (4.3-5.7); RED CELL DISTRIBUTION WIDTH 11.9 % (11.7-14.4)
[2019-11-23] MEDS: CEFAZOLIN SOD 1 GM/NS 50ML 50 ML IV SCH (06:10)
[2019-11-23 06:27] LABS: ANION GAP 13.1 mmol/L (8-16); BLOOD UREA NITROGEN 13 mg/dL (7-26); BUN/CREATININE RATIO 19 (6-25); CALCIUM 8.7 mg/dL (8.4-10.2); CARBON DIOXIDE 23 mmol/L (22-29); CHLORIDE 103 mmol/L (98-107); CREATININE, SERUM 0.69 mg/dL (0.72-1.25); EST GLOMERULAR FILTRATION RATE > 60 ML/MIN (60-); GLUCOSE 113 mg/dL (74-118); POTASSIUM 4.1 mmol/L (3.5-5.1); SODIUM 135 mmol/L (136-145)
[2019-11-23 08:00] VITALS: BP 126/64
[2019-11-23 08:35] VITALS: BP 126/64
[2019-11-23] MEDS: PANTOPRAZOLE SOD 40 MG TABEC PO SCH (08:42)
[2019-11-23] MEDS: DOCUSATE SODIUM 100 MG CAP PO SCH (08:42)
[2019-11-23] MEDS ORDERED: PIPER-TAZ 3.375 GM 50 ML IV SCH (09:00)
[2019-11-23] MEDS ORDERED: ONDANSETRON HCL 4 MG ORAL DISINTEGRATING TAB PO PRN (09:30)
--- NOTE | 2019-11-23 11:00 | NUR ---
Patient received discharge order from Dr. Hernandez once Dr. Eaton cleared patient from his stand point. Dr. Eaton also removed drain from testicle at bedside. Patient was given discharge instructions, prescriptions, and education. Patient verbalized understanding and asked appropriate questions. Patient IV was removed at 1030 and covered with a C/D/I dressing. Patient was wheeled to car at 1055 and had no other issues or complaints.
--- NOTE | 2019-11-23 20:36 | Discharge Summary ---
FINAL DIAGNOSES: 1. Right testicular torsion, status post removal. 2. Leukocytosis. 3. Baseline nonischemic cardiomyopathy with ICD, AICD, dyslipidemia, compensated congestive heart failure, obesity, stable. SUMMARY: The patient is 34 years old male, who has baseline nonischemic cardiomyopathy with AICD, had right testicular torsion, status post procedure to remove the right testis. Postoperatively, the patient is stable. He has remained afebrile. However, patient has leukocytosis, could be reactive versus urinary tract infection and possibly hydronephrosis. The patient has been on Ancef. He is comfortable. He is stable. He adamantly want to go home. The patient's son is leaving for [place] and he want to see his son. Therefore, patient want to go home today. I change the antibiotics from Ancef to Zosyn, give him one dose. The patient already given by Dr. Kyle Eaton, his surgeon, Hilda and I will add on Cipro 500 mg twice a day for 10 days. The patient takes Zofran as needed. Overall, the patient is stable however. He will resume his home medication and he will follow up with Dr. Kyle Eaton closely. The patient understands the possibilities of worsening infection or worsening condition. The patient will follow up with Dr. Kyle Eaton closely per his wishes. Resume home medication. DIET: Cardiac diet. Activity as tolerated. Follow up with Dr. Kyle Eaton closely. MD CHANTALE Gallegos/CORTNEY /[id number]
== END 2019-11-23 10:55 | disposition home or self-care (01) ==
LOC: FSED 21:55 → OR 23:55 → MED/SURG 11-22 02:50 → INTOOBSV 11-22 02:50
PROVIDERS: ADMIT Internal Medicine; ATTEND Internal Medicine
DX: N44.00 Torsion of testis, unspecified (principal); I42.8 Other cardiomyopathies; E78.5 Hyperlipidemia, unspecified; E66.9 Obesity, unspecified; Z68.29 Body mass index [BMI] 29.0-29.9, adult; Z95.810 Presence of automatic (implantable) cardiac defibrillator; N39.0 Urinary tract infection, site not specified; I25.2 Old myocardial infarction; D68.9 Coagulation defect, unspecified; Z11.59 Encounter for screening for other viral diseases; Z85.038 Personal history of other malignant neoplasm of large intestine; M19.90 Unspecified osteoarthritis, unspecified site; D68.0 Von Willebrand disease; I11.0 Hypertensive heart disease with heart failure; I50.9 Heart failure, unspecified
CPT/HCPCS: 36415 ×2; 76870; 80048; 81001; 82948; 85025; 85610; 85730; 87086; 88302; 88342; 99284; G0378 ×2; J0690 ×3; J1100; J1885; J2001; J2250; J2270 ×2; J2405; J2543; J2704; J3010; J7050; J7121; S0164 ×2; U0002

== ENCOUNTER → 2020-06-03 | Day surgery (SDC) | payer MEDICARE ==
[2020-06-01 13:32] LABS: BASOPHILS # (AUTO) 0.1 (0.0-0.1); BASOPHILS % 0.5 % (0.0-1.0); EOSINOPHILS # (AUTO) 0.2 (0.0-0.4); EOSINOPHILS % 2.4 % (0.0-6.0); HEMATOCRIT 45.4 % (38.2-49.6); HEMOGLOBIN 15.4 g/dL (14.0-18.0); LYMPHOCYTES # (AUTO) 3.3 (1.0-3.2); LYMPHOCYTES % 33.7 % (18.0-39.1); MEAN CORPUSCULAR HEMOGLOBIN 28.4 pg (28-32); MEAN CORPUSCULAR HGB CONC 33.9 g/dL (31-35); MEAN CORPUSCULAR VOLUME 83.8 fL (81-99); MONOCYTES # (AUTO) 0.7 (0.2-0.8); MONOCYTES % 7.1 % (4.4-11.3); NEUTROPHILS # (AUTO) 5.4 (2.1-6.9); NEUTROPHILS % 55.8 % (38.7-80.0); PLATELET COUNT 254 x10e3/uL (140-360); RED BLOOD COUNT 5.42 x10e6/uL (4.3-5.7); RED CELL DISTRIBUTION WIDTH 12.5 % (11.7-14.4)
[2020-06-01 13:45] LABS: INR 0.98; PROTHROMBIN TIME 13.6 seconds (11.9-14.5)
[2020-06-01 13:46] LABS: PARTIAL THROMBOPLASTIN TIME 34.2 seconds (23.8-35.5)
[2020-06-01 13:53] LABS: ALANINE AMINOTRANSFERASE 28 IU/L (0-55); ALBUMIN 4.1 g/dL (3.5-5.0); ALBUMIN/GLOBULIN RATIO 1.2 (0.8-2.0); ALKALINE PHOSPHATASE 54 IU/L (40-150); ANION GAP 12.6 mmol/L (8-16); BLOOD UREA NITROGEN 8 mg/dL (7-26); BUN/CREATININE RATIO 8 (6-25); CALCIUM 9.1 mg/dL (8.4-10.2); CARBON DIOXIDE 23 mmol/L (22-29); CHLORIDE 107 mmol/L (98-107); CREATININE, SERUM 1.03 mg/dL (0.72-1.25); EST GLOMERULAR FILTRATION RATE > 60 ML/MIN (60-); GLUCOSE 95 mg/dL (74-118); POTASSIUM 4.6 mmol/L (3.5-5.1); SODIUM 138 mmol/L (136-145)
[~2020-06-03] MED LIST changes: +ACETAMINOPHEN/CODEINE 300MG - 30MG TAB ONE; +B&O 60MG R/S 60 MG SUPP PR ONE; +DDAVP0.1 MG; +DEXAMETHASONE SOD PHOS INJ 4 MG/ML VIAL ONE; +FLOMAX0.4 MG PO; +IOPAMIDOL 300MG/ML 50ML INFUS..BTL IV ONE; +KETOROLAC TROMETHAMINE 30 MG/ML VIAL ONE; +LEVOFLOXACIN250 MG PO; +LIDOCAINE HCL 2% LOCAL INJ 5 ML SDV VIAL INJ ONE; +MEPERIDINE HCL INJ 25 MG/ML VIAL ONE; -MIDAZOLAM HCL 2 MG/2 ML VIAL ONE; +MIDAZOLAM HCL 5 MG/ML VIAL ONE; +ONDANSETRON HCL INJ 2MG/ML 2ML 2 MG/ML VIAL ONE; +PIPERACILLIN/TAZOBAC 3.375 GM VIAL ONE; +PROPOFOL IV EMULSION 10 MG/ML 20 ML VIAL ONE; +SEVOFLURANE INHAL SOLN 250 ML PEN BTL ONE; +SODIUM CHLORIDE 0.9% 50ML 50 ML ONE
[2020-06-03 12:30] VITALS: BP 125/76
== END | disposition home or self-care (01) ==
LOC: OR 07:47
PROVIDERS: ATTEND Urology
DX: N35.919 Unspecified urethral stricture, male, unspecified site (principal); N32.89 Other specified disorders of bladder; N20.0 Calculus of kidney; N45.3 Epididymo-orchitis; I25.10 Atherosclerotic heart disease of native coronary artery without angina pectoris; I11.0 Hypertensive heart disease with heart failure; I50.9 Heart failure, unspecified; D68.0 Von Willebrand disease; E78.5 Hyperlipidemia, unspecified; F17.210 Nicotine dependence, cigarettes, uncomplicated; Z88.1 Allergy status to other antibiotic agents; Z88.2 Allergy status to sulfonamides; Z01.810 Encounter for preprocedural cardiovascular examination; Z01.812 Encounter for preprocedural laboratory examination; Z01.818 Encounter for other preprocedural examination; Z20.822 Contact with and (suspected) exposure to COVID-19; Z85.47 Personal history of malignant neoplasm of testis; Z85.038 Personal history of other malignant neoplasm of large intestine; Z95.810 Presence of automatic (implantable) cardiac defibrillator; Z80.52 Family history of malignant neoplasm of bladder
CPT/HCPCS: 36415; 52281; 71046; 74420; 80053; 85025; 85610; 85730; 93005; C1758; C1769; J1100; J1885; J2001; J2175; J2250; J2405; J2543; J2704; J3010; Q9967; U0002

== ENCOUNTER 2020-06-25 12:28 | Emergency (ER) | payer MEDICARE ==
[~2020-06-25] VITALS: Ht 165.1 cm; Wt 73.5 kg
[~2020-06-25 12:28] MED LIST changes: -ACETAMINOPHEN/CODEINE 300MG - 30MG TAB ONE; -B&O 60MG R/S 60 MG SUPP PR ONE; -DEXAMETHASONE SOD PHOS INJ 4 MG/ML VIAL ONE; -FENTANYL CITRATE/PF 100MCG/2 ML INJ ONE; -IOPAMIDOL 300MG/ML 50ML INFUS..BTL IV ONE; -KETOROLAC TROMETHAMINE 30 MG/ML VIAL ONE; -LIDOCAINE HCL 2% LOCAL INJ 5 ML SDV VIAL INJ ONE; -MEPERIDINE HCL INJ 25 MG/ML VIAL ONE; -MIDAZOLAM HCL 5 MG/ML VIAL ONE; -ONDANSETRON HCL INJ 2MG/ML 2ML 2 MG/ML VIAL ONE; -PIPERACILLIN/TAZOBAC 3.375 GM VIAL ONE; -PROPOFOL IV EMULSION 10 MG/ML 20 ML VIAL ONE; -SEVOFLURANE INHAL SOLN 250 ML PEN BTL ONE; -SODIUM CHLORIDE 0.9% 50ML 50 ML ONE
[2020-06-25] MEDS ORDERED: ACETAMINOPHEN 325 MG TAB ONE (12:53)
[2020-06-25] MEDS ORDERED: ACETAMINOPHEN 325 MG TAB PO ONE (13:00)
[2020-06-25] MEDS ORDERED: LEVOFLOXACIN500 MG PO (13:00)
== END 2020-06-25 13:11 | disposition home or self-care (01) ==
LOC: FSED 12:59
DX: N50.811 Right testicular pain (principal); N45.1 Epididymitis; Z85.47 Personal history of malignant neoplasm of testis; Z95.0 Presence of cardiac pacemaker
CPT/HCPCS: 81003; 87086; 99283

== ENCOUNTER 2020-10-09 19:01 | Emergency (ER) | payer MEDICARE ==
[~2020-10-09] VITALS: Ht 165.1 cm; Wt 73.5 kg
[~2020-10-09 19:01] MED LIST changes: +LEVOFLOXACIN500 MG PO
[2020-10-09] MEDS ORDERED: KETOROLAC TROMETHAMINE 30 MG/ML VIAL IV ONE (19:30)
[2020-10-09] MEDS ORDERED: DEXAMETHASONE SOD PHOS INJ 4 MG/ML VIAL IV ONE (19:30)
[2020-10-09] MEDS ORDERED: HYDROCODONE/APAP 5MG-325MG TAB PO ONE (19:30)
[2020-10-09] MEDS ORDERED: ONDANSETRON HCL INJ 2MG/ML 2ML 2 MG/ML VIAL IV ONE (19:30)
[2020-10-09] MEDS ORDERED: CLONIDINE HCL 0.1 MG TAB PO ONE (19:45)
[2020-10-09 20:05] LABS: CREATINE KINASE 60 IU/L (30-200)
[2020-10-09] MEDS ORDERED: NEURONTIN300 MG PO (20:08)
[2020-10-09] MEDS ORDERED: ONDANSETRON HCL INJ 2MG/ML 2ML 2 MG/ML VIAL ONE ×4 (20:18→20:19)
[2020-10-09] MEDS ORDERED: CLONIDINE HCL 0.1 MG TAB ONE (20:18)
[2020-10-09] MEDS ORDERED: DEXAMETHASONE SOD PHOS INJ 4 MG/ML VIAL ONE (20:18)
[2020-10-09] MEDS ORDERED: KETOROLAC TROMETHAMINE 30 MG/ML VIAL ONE (20:18)
[2020-10-09] MEDS ORDERED: HYDROCODONE/APAP 5MG-325MG TAB ONE (20:19)
== END 2020-10-09 21:10 | disposition home or self-care (01) ==
LOC: FSED 19:25
DX: G62.9 Polyneuropathy, unspecified (principal); G56.01 Carpal tunnel syndrome, right upper limb; I10 Essential (primary) hypertension; R94.31 Abnormal electrocardiogram [ECG] [EKG]; Z85.47 Personal history of malignant neoplasm of testis; I25.2 Old myocardial infarction; Z95.810 Presence of automatic (implantable) cardiac defibrillator; Z98.0 Intestinal bypass and anastomosis status; F17.210 Nicotine dependence, cigarettes, uncomplicated
CPT/HCPCS: 36415; 70450; 72125; 80053; 82550; 82553; 84484; 85025; 93005; 99284; J1100; J1885; J2405

== ENCOUNTER 2021-02-16 10:31 | Emergency (ER) | payer MEDICARE ==
[~2021-02-16] VITALS: Ht 165.1 cm; Wt 73.5 kg
[~2021-02-16 10:31] MED LIST changes: +NEURONTIN300 MG PO
[2021-02-16] MEDS ORDERED: ONDANSETRON HCL INJ 2MG/ML 2ML 2 MG/ML VIAL IV STA ×2 (10:52)
[2021-02-16] MEDS ORDERED: Morphine 4mg Syringe 4 MG/ML INJ IV ONE (11:00)
[2021-02-16 11:04] LABS: BASOPHILS # (AUTO) 0.1 (0.0-0.1); BASOPHILS % 0.9 % (0.0-1.0); EOSINOPHILS # (AUTO) 0.3 (0.0-0.4); EOSINOPHILS % 3.6 % (0.0-6.0); HEMATOCRIT 47.7 % (38.2-49.6); HEMOGLOBIN 15.5 g/dL (14.0-18.0); LYMPHOCYTES # (AUTO) 3.1 (1.0-3.2); LYMPHOCYTES % 33.7 % (18.0-39.1); MEAN CORPUSCULAR HEMOGLOBIN 29.1 pg (28-32); MEAN CORPUSCULAR HGB CONC 32.5 g/dL (31-35); MEAN CORPUSCULAR VOLUME 89.5 fL (81-99); MONOCYTES # (AUTO) 0.7 (0.2-0.8); MONOCYTES % 7.6 % (4.4-11.3); NEUTROPHILS % 53.8 % (38.7-80.0); PLATELET COUNT 257 x10e3/uL (140-360); RED BLOOD COUNT 5.33 x10e6/uL (4.3-5.7); RED CELL DISTRIBUTION WIDTH 11.9 % (11.7-14.4)
[2021-02-16 11:26] LABS: CLARITY,URINE CLEAR (CLEAR); COLOR,URINE YELLOW (YELLOW)
[2021-02-16 11:27] LABS: KETONES,URINE NEGATIVE (NEGATIVE); LEUKOCYTE ESTERASE ,URINE TRACE (NEGATIVE); NITRITE,URINE NEGATIVE (NEGATIVE); PROTEIN,URINE DIPSTICK NEGATIVE (NEGATIVE); URINE UROBILINOGEN 0.2 mg/dL (0.2 - 1)
[2021-02-16 11:29] LABS: ALBUMIN 4.2 g/dL (3.5-5.0); ALBUMIN/GLOBULIN RATIO 1.3 (0.8-2.0); ANION GAP 12.3 mmol/L (8-16); CREATININE, SERUM 0.8 mg/dL (0.72-1.25); POTASSIUM 4.3 mmol/L (3.5-5.1)
[2021-02-16 11:59] LABS: BACTERIA,URINE FEW /HPF; EPITHELIAL CELLS,URINE FEW /LPF
[2021-02-16] MEDS ORDERED: CEFTRIAXONE 1 GM in SODIUM CHLORIDE 0.9% 50ML 50 ML IV ONE (14:00)
[2021-02-16] MEDS ORDERED: KETOROLAC TROMETHAMINE 30 MG/ML VIAL IV ONE (14:00)
[2021-02-16] MEDS ORDERED: ULTRACET TABLE1 EACH PO (14:02)
[2021-02-16] MEDS ORDERED: CEPHALEXIN500 MG PO (14:02)
[2021-02-16] MEDS ORDERED: IBUPROFEN600 MG PO (14:02)
[2021-02-16 14:09] VITALS: BP 146/64
== END 2021-02-16 14:15 | disposition home or self-care (01) ==
LOC: ER 11:00
DX: N50.811 Right testicular pain (principal); N39.0 Urinary tract infection, site not specified; I10 Essential (primary) hypertension; Z85.47 Personal history of malignant neoplasm of testis; Z95.810 Presence of automatic (implantable) cardiac defibrillator; Z98.0 Intestinal bypass and anastomosis status
CPT/HCPCS: 36415; 76870; 80053; 81001; 85025; 93976; 99284; J0696; J1885; J2270; J2405

== ENCOUNTER 2021-08-31 18:43 | Observation (INO) | payer MEDICARE ==
[~2021-08-31] VITALS: Ht 165.1 cm; Wt 63.5 kg
[~2021-08-31 18:43] MED LIST changes: +CEPHALEXIN500 MG PO; +IBUPROFEN600 MG PO; +ULTRACET TABLE1 EACH PO
[2021-08-31 19:09] LABS: BASOPHILS # (AUTO) 0.1 (0.0-0.1); BASOPHILS % 0.6 % (0.0-1.0); EOSINOPHILS # (AUTO) 0.2 (0.0-0.4); EOSINOPHILS % 1.3 % (0.0-6.0); HEMATOCRIT 48.6 % (38.2-49.6); HEMOGLOBIN 16.3 g/dL (14.0-18.0); LYMPHOCYTES # (AUTO) 1.9 (1.0-3.2); LYMPHOCYTES % 14.5 % (18.0-39.1); MEAN CORPUSCULAR HEMOGLOBIN 29.5 pg (28-32); MEAN CORPUSCULAR HGB CONC 33.5 g/dL (31-35); MONOCYTES % 7.8 % (4.4-11.3); NEUTROPHILS # (AUTO) 9.9 (2.1-6.9); NEUTROPHILS % 75.2 % (38.7-80.0); PLATELET COUNT 293 x10e3/uL (140-360); RED BLOOD COUNT 5.52 x10e6/uL (4.3-5.7); RED CELL DISTRIBUTION WIDTH 11.8 % (11.7-14.4)
[2021-08-31] MEDS ORDERED: ONDANSETRON HCL INJ 2MG/ML 2ML 2 MG/ML VIAL IV STA (19:19)
[2021-08-31 19:25] LABS: ALBUMIN 4.3 g/dL (3.5-5.0); ALBUMIN/GLOBULIN RATIO 1.2 (0.8-2.0); ANION GAP 17.1 mmol/L (8-16); CALCIUM 9.3 mg/dL (8.4-10.2); CREATININE, SERUM 1.19 mg/dL (0.72-1.25); POTASSIUM 4.1 mmol/L (3.5-5.1)
[2021-08-31] MEDS ORDERED: Morphine 2mg Syringe 2 MG/ML SYR IV ONE (19:30)
[2021-08-31 19:33] LABS: CREATINE KINASE MB 1.3 ng/mL (0-5.0)
[2021-08-31 19:33] LABS: CLARITY,URINE CLEAR (CLEAR); COLOR,URINE YELLOW (YELLOW)
[2021-08-31 19:34] LABS: KETONES,URINE NEGATIVE (NEGATIVE); LEUKOCYTE ESTERASE ,URINE TRACE (NEGATIVE); NITRITE,URINE NEGATIVE (NEGATIVE); PROTEIN,URINE DIPSTICK 1+ (NEGATIVE); URINE UROBILINOGEN 0.2 mg/dL (0.2 - 1)
[2021-08-31 19:41] LABS: WBC,URINE (MAN) 0-5 /HPF (0-5)
[2021-08-31 19:42] LABS: BACTERIA,URINE RARE /HPF; EPITHELIAL CELLS,URINE RARE /LPF
[2021-08-31] MEDS ORDERED: SODIUM CHLORIDE FLUSH 10 ML SYR INJ PRN (19:45)
[2021-08-31] MEDS ORDERED: ASPIRIN 81 MG CHEW TAB PO ONE (19:45)
[2021-08-31] MEDS ORDERED: ACETAMINOPHEN 325 MG TAB PO PRN (20:30)
[2021-08-31] MEDS ORDERED: Morphine 2mg Syringe 2 MG/ML SYR IV PRN (20:30)
[2021-08-31 23:25] VITALS: BP 149/91
[2021-09-01] VITALS: BP 140/96
[2021-09-01] MEDS ORDERED: ATORVASTATIN 10 MG TAB PO SCH (00:28)
[2021-09-01] MEDS: Morphine 4mg Syringe 4 MG/ML INJ IV PRN ×4 (00:30→10:22)
[2021-09-01] MEDS: ONDANSETRON HCL INJ 2MG/ML 2ML 2 MG/ML VIAL IV PRN ×2 (00:30→10:22)
[2021-09-01] MEDS ORDERED: HYDRALAZINE HCL 20 MG/ML VIAL IV PRN (00:30)
[2021-09-01] MEDS ORDERED: METOPROLOL SUCCINATE 25 MG TAB XL PO SCH (00:34)
[2021-09-01] MEDS ORDERED: RAMIPRIL 2.5 MG CAP PO SCH (00:34)
[2021-09-01 04:00] VITALS: BP 129/85
[2021-09-01 05:27] LABS: BASOPHILS # (AUTO) 0.1 (0.0-0.1); BASOPHILS % 0.8 % (0.0-1.0); EOSINOPHILS # (AUTO) 0.3 (0.0-0.4); EOSINOPHILS % 2.8 % (0.0-6.0); HEMATOCRIT 46.5 % (38.2-49.6); HEMOGLOBIN 15.4 g/dL (14.0-18.0); MEAN CORPUSCULAR HEMOGLOBIN 29.7 pg (28-32); MEAN CORPUSCULAR HGB CONC 33.1 g/dL (31-35); MEAN CORPUSCULAR VOLUME 89.8 fL (81-99); MONOCYTES % 9.8 % (4.4-11.3); NEUTROPHILS # (AUTO) 5.7 (2.1-6.9); NEUTROPHILS % 56.1 % (38.7-80.0); PLATELET COUNT 267 x10e3/uL (140-360); RED BLOOD COUNT 5.18 x10e6/uL (4.3-5.7); RED CELL DISTRIBUTION WIDTH 12.1 % (11.7-14.4)
[2021-09-01 05:45] LABS: ALBUMIN 3.8 g/dL (3.5-5.0); ALBUMIN/GLOBULIN RATIO 1.1 (0.8-2.0); CALCIUM 8.9 mg/dL (8.4-10.2); CREATININE, SERUM 0.82 mg/dL (0.72-1.25)
[2021-09-01 08:17] VITALS: BP 137/67
[2021-09-01] MEDS ORDERED: TAMSULOSIN HCL 0.4 MG CAP PO SCH (09:00)
[2021-09-01 09:07] VITALS: BP 137/67
== END 2021-09-01 12:05 | disposition home or self-care (01) ==
LOC: ER 19:01 → ERHOLD 20:07 → MED/SURG 22:56
PROVIDERS: ADMIT Internal Medicine; ATTEND Internal Medicine
DX: R07.89 Other chest pain (principal); I10 Essential (primary) hypertension; I25.2 Old myocardial infarction; E87.2 Acidosis; D72.829 Elevated white blood cell count, unspecified; E78.5 Hyperlipidemia, unspecified; I42.8 Other cardiomyopathies; Z72.0 Tobacco use; Z85.47 Personal history of malignant neoplasm of testis; Z95.810 Presence of automatic (implantable) cardiac defibrillator; Z88.6 Allergy status to analgesic agent; Z88.2 Allergy status to sulfonamides; Z88.8 Allergy status to other drugs, medicaments and biological substances; Z20.822 Contact with and (suspected) exposure to COVID-19
CPT/HCPCS: 36415 ×2; 71045; 80053 ×2; 81001; 82550; 82553; 84484 ×2; 85025 ×2; 85379; 93005 ×2; 93306; 99284; G0378 ×2; J2270 ×2; J2405 ×2; U0002

== ENCOUNTER 2021-10-24 16:47 | Emergency (ER) | payer MEDICARE ==
[~2021-10-24] VITALS: Ht 165.1 cm; Wt 63.5 kg
[2021-10-24] MEDS ORDERED: KETOROLAC TROMETHAMINE 30 MG/ML VIAL IV STA (16:56)
[2021-10-24] MEDS ORDERED: KETOROLAC TROMETHAMINE 60 MG/2 ML VIAL IM ONE (17:30)
[2021-10-24 18:16] LABS: CLARITY,URINE SL CLOUDY (CLEAR); COLOR,URINE YELLOW (YELLOW); KETONES,URINE TRACE (NEGATIVE); LEUKOCYTE ESTERASE ,URINE TRACE (NEGATIVE); NITRITE,URINE NEGATIVE (NEGATIVE); PROTEIN,URINE DIPSTICK NEGATIVE (NEGATIVE); URINE UROBILINOGEN 1 mg/dL (0.2 - 1)
[2021-10-24 18:21] LABS: AMPHETAMINES SCREEN,URINE NEGATIVE (NEGATIVE); BENZODIAZEPINES SCREEN,URINE NEGATIVE (NEGATIVE); PHENCYCLIDINE SCREEN,URINE NEGATIVE (NEGATIVE)
[2021-10-24 18:27] LABS: BACTERIA,URINE MODERATE /HPF; RBC,URINE 21-50 /HPF (0-5)
[2021-10-24] MEDS ORDERED: MAGNESIUM CITR296 ML PO (19:11)
[2021-10-24] MEDS ORDERED: ONDANSETRON HCL INJ 2MG/ML 2ML 2 MG/ML VIAL ONE (20:45)
[2021-10-24] MEDS ORDERED: Morphine 4mg INJECTION 4 MG/ML INJ ONE (20:46)
[2021-10-24] MEDS ORDERED: SODIUM CHLORIDE 0.9% 1000ML 1,000 ML ONE (20:46)
== END 2021-10-24 19:20 | disposition home or self-care (01) ==
LOC: ER 17:01
DX: R10.30 Lower abdominal pain, unspecified (principal); N13.2 Hydronephrosis with renal and ureteral calculous obstruction; I10 Essential (primary) hypertension; I25.2 Old myocardial infarction; Z95.810 Presence of automatic (implantable) cardiac defibrillator; Z85.47 Personal history of malignant neoplasm of testis; Z98.0 Intestinal bypass and anastomosis status
CPT/HCPCS: 74176; 80307; 81001; 99282; J1885; J2270; J2405; J7030

== ENCOUNTER 2021-10-24 20:14 | Inpatient (IN) | payer MEDICARE ==
[~2021-10-24] VITALS: Ht 165.1 cm; Wt 73.1 kg
[~2021-10-24 20:14] MED LIST changes: +MAGNESIUM CITR296 ML PO
[2021-10-24 20:40] LABS: BASOPHILS # (AUTO) 0.1 (0.0-0.1); BASOPHILS % 0.7 % (0.0-1.0); EOSINOPHILS # (AUTO) 0.2 (0.0-0.4); EOSINOPHILS % 1.9 % (0.0-6.0); HEMATOCRIT 44.3 % (38.2-49.6); HEMOGLOBIN 14.6 g/dL (14.0-18.0); LYMPHOCYTES # (AUTO) 3.2 (1.0-3.2); LYMPHOCYTES % 36.1 % (18.0-39.1); MEAN CORPUSCULAR HEMOGLOBIN 29.4 pg (28-32); MEAN CORPUSCULAR VOLUME 89.1 fL (81-99); MONOCYTES # (AUTO) 0.7 (0.2-0.8); MONOCYTES % 8.2 % (4.4-11.3); NEUTROPHILS # (AUTO) 4.6 (2.1-6.9); NEUTROPHILS % 52.9 % (38.7-80.0); PLATELET COUNT 302 x10e3/uL (140-360); RED BLOOD COUNT 4.97 x10e6/uL (4.3-5.7); RED CELL DISTRIBUTION WIDTH 12.1 % (11.7-14.4)
[2021-10-24] MEDS: SODIUM CHLORIDE 0.9% 1000ML 1,000 ML IV SCH (20:42)
[2021-10-24] MEDS: ONDANSETRON HCL INJ 2MG/ML 2ML 2 MG/ML VIAL IV PRN (20:43)
[2021-10-24] MEDS: Morphine 4mg INJECTION 4 MG/ML INJ IV PRN (20:43)
[2021-10-24 21:00] LABS: ALANINE AMINOTRANSFERASE 30 IU/L (0-55); ALBUMIN 4.1 g/dL (3.5-5.0); ALBUMIN/GLOBULIN RATIO 1.3 (0.8-2.0); ALKALINE PHOSPHATASE 52 IU/L (40-150); BLOOD UREA NITROGEN 14 mg/dL (7-26); BUN/CREATININE RATIO 18 (6-25); CALCIUM 8.9 mg/dL (8.4-10.2); CARBON DIOXIDE 24 mmol/L (22-29); CHLORIDE 108 mmol/L (98-107); GLUCOSE 113 mg/dL (74-118); SODIUM 143 mmol/L (136-145)
[2021-10-24] MEDS ORDERED: ONDANSETRON HCL INJ 2MG/ML 2ML 2 MG/ML VIAL IV STA (21:42)
[2021-10-24 22:02] VITALS: BP 149/86
[2021-10-24 22:08] VITALS: BP 149/86
[2021-10-24] MEDS: METOPROLOL SUCCINATE 25 MG TAB XL PO SCH (22:15)
[2021-10-24] MEDS: ATORVASTATIN 10 MG TAB PO SCH ×2 (22:15→23:24)
[2021-10-24] MEDS: PANTOPRAZOLE SOD 40 MG TABEC PO SCH (22:15)
[2021-10-24 22:34] VITALS: BP 133/90
[2021-10-24] MEDS ORDERED: ACETAMINOPHEN 325 MG TAB PO PRN (23:50)
[2021-10-25] VITALS (7 sets, daily range): BP systolic 124–151; BP diastolic 73–99
[2021-10-25] MEDS: Morphine 4mg INJECTION 4 MG/ML INJ IV PRN ×6 (00:38→21:24)
[2021-10-25] MEDS: ONDANSETRON HCL INJ 2MG/ML 2ML 2 MG/ML VIAL IV PRN ×6 (00:45→21:24)
[2021-10-25 04:44] LABS: BASOPHILS # (AUTO) 0.1 (0.0-0.1); EOSINOPHILS # (AUTO) 0.3 (0.0-0.4); EOSINOPHILS % 3.4 % (0.0-6.0); HEMATOCRIT 40.2 % (38.2-49.6); HEMOGLOBIN 13.1 g/dL (14.0-18.0); LYMPHOCYTES # (AUTO) 3.1 (1.0-3.2); LYMPHOCYTES % 42.6 % (18.0-39.1); MEAN CORPUSCULAR HEMOGLOBIN 29.6 pg (28-32); MEAN CORPUSCULAR HGB CONC 32.6 g/dL (31-35); MEAN CORPUSCULAR VOLUME 90.7 fL (81-99); MONOCYTES # (AUTO) 0.7 (0.2-0.8); MONOCYTES % 9.6 % (4.4-11.3); NEUTROPHILS # (AUTO) 3.1 (2.1-6.9); NEUTROPHILS % 43.1 % (38.7-80.0); PLATELET COUNT 263 x10e3/uL (140-360); RED BLOOD COUNT 4.43 x10e6/uL (4.3-5.7); RED CELL DISTRIBUTION WIDTH 12.3 % (11.7-14.4)
[2021-10-25] MEDS: SODIUM CHLORIDE 0.9% 1000ML 1,000 ML IV SCH ×4 (05:00→21:29)
[2021-10-25 05:06] LABS: ALBUMIN 3.3 g/dL (3.5-5.0); ALBUMIN/GLOBULIN RATIO 1.2 (0.8-2.0); CALCIUM 7.9 mg/dL (8.4-10.2); CREATININE, SERUM 0.78 mg/dL (0.72-1.25)
[2021-10-25] MEDS: PANTOPRAZOLE SOD 40 MG TABEC PO SCH ×2 (08:54→16:42)
[2021-10-25] MEDS: ATORVASTATIN 10 MG TAB PO SCH (21:23)
[2021-10-25] MEDS: METOPROLOL SUCCINATE 25 MG TAB XL PO SCH (21:24)
[2021-10-26] VITALS (8 sets, daily range): BP systolic 128–148; BP diastolic 73–97
[2021-10-26] MEDS: ONDANSETRON HCL INJ 2MG/ML 2ML 2 MG/ML VIAL IV PRN ×6 (01:51→22:37)
[2021-10-26] MEDS: Morphine 4mg INJECTION 4 MG/ML INJ IV PRN ×6 (01:52→22:37)
[2021-10-26 04:43] LABS: BASOPHILS # (AUTO) 0.1 (0.0-0.1); BASOPHILS % 0.5 % (0.0-1.0); EOSINOPHILS # (AUTO) 0.3 (0.0-0.4); EOSINOPHILS % 2.9 % (0.0-6.0); HEMATOCRIT 42.3 % (38.2-49.6); HEMOGLOBIN 13.9 g/dL (14.0-18.0); LYMPHOCYTES # (AUTO) 3.1 (1.0-3.2); LYMPHOCYTES % 26.9 % (18.0-39.1); MEAN CORPUSCULAR HEMOGLOBIN 29.6 pg (28-32); MEAN CORPUSCULAR HGB CONC 32.9 g/dL (31-35); MEAN CORPUSCULAR VOLUME 90.2 fL (81-99); MONOCYTES # (AUTO) 0.8 (0.2-0.8); MONOCYTES % 7.2 % (4.4-11.3); NEUTROPHILS # (AUTO) 7.1 (2.1-6.9); NEUTROPHILS % 62.2 % (38.7-80.0); PLATELET COUNT 262 x10e3/uL (140-360); RED BLOOD COUNT 4.69 x10e6/uL (4.3-5.7); RED CELL DISTRIBUTION WIDTH 11.8 % (11.7-14.4)
[2021-10-26] MEDS: PANTOPRAZOLE SOD 40 MG TABEC PO SCH ×2 (09:00→16:51)
[2021-10-26 09:17] LABS: ANION GAP 13.4 mmol/L (8-16); CREATININE, SERUM 0.69 mg/dL (0.72-1.25); POTASSIUM 4.4 mmol/L (3.5-5.1)
[2021-10-26] MEDS: SODIUM CHLORIDE 0.9% 1000ML 1,000 ML IV SCH ×3 (10:40→21:25)
[2021-10-26] MEDS ORDERED: DESMOPRESSIN ACETATE 5 ML SPRAY NS PRN (17:30)
[2021-10-26] MEDS: ATORVASTATIN 10 MG TAB PO SCH (21:20)
[2021-10-26] MEDS: METOPROLOL SUCCINATE 25 MG TAB XL PO SCH (21:25)
[2021-10-27] VITALS (7 sets, daily range): BP systolic 124–149; BP diastolic 68–92
[2021-10-27] MEDS: ONDANSETRON HCL INJ 2MG/ML 2ML 2 MG/ML VIAL IV PRN ×4 (02:41→16:25)
[2021-10-27] MEDS: Morphine 4mg INJECTION 4 MG/ML INJ IV PRN ×4 (02:41→16:25)
[2021-10-27] MEDS ORDERED: DESMOPRESSIN ACETATE IV ONE (08:00)
[2021-10-27] MEDS ORDERED: SODIUM CHLORIDE 0.9% IV ONE (08:00)
[2021-10-27] MEDS: PANTOPRAZOLE SOD 40 MG TABEC PO SCH (09:00)
[2021-10-27] MEDS ORDERED: DESMOPRESSIN ACETATE 5 ML SPRAY NS ONE (10:00)
[2021-10-27] MEDS ORDERED: DESMOPRESSIN ACETATE 4 MCG/ML VIAL IV ONE (12:00)
[2021-10-27] MEDS ORDERED: B&O 60MG R/S 60 MG SUPP PR ONE (12:38)
[2021-10-27] MEDS ORDERED: IOPAMIDOL 610MG/1ML 300 MG/ML VIAL IV ONE (12:39)
[2021-10-27] MEDS ORDERED: MIDAZOLAM HCL 2 MG/2 ML VIAL ONE (13:29)
[2021-10-27] MEDS ORDERED: FENTANYL CITRATE/PF 100MCG/2 ML INJ ONE ×2 (13:29→14:16)
[2021-10-27] MEDS ORDERED: Morphine 2mg Syringe 2 MG/ML SYR ONE (14:58)
[2021-10-27] MEDS ORDERED: POVIDONE IODINE 0.05% 0.05 % ML PO ONE (14:59)
[2021-10-27] MEDS ORDERED: ONDANSETRON HCL INJ 2MG/ML 2ML 2 MG/ML VIAL ONE (14:59)
[2021-10-27] MEDS ORDERED: PROPOFOL IV EMULSION 10 MG/ML 20 ML VIAL ONE (14:59)
[2021-10-27] MEDS ORDERED: SEVOFLURANE INHAL SOLN 250 ML PEN BTL ONE (14:59)
[2021-10-27] MEDS ORDERED: DEXAMETHASONE SOD PHOS INJ 4 MG/ML SDV ONE (14:59)
[2021-10-27] MEDS ORDERED: LIDOCAINE HCL 2% LOCAL INJ 5 ML SDV VIAL INJ ONE (14:59)
[2021-10-27] MEDS ORDERED: PHENAZOPYRIDINE HCL 100 MG TAB PO PRN (15:00)
[2021-10-27] MEDS ORDERED: OXYBUTYNIN CHLORIDE 5 MG TAB PO SCH (15:00)
[2021-10-27] MEDS ORDERED: B&O 60MG R/S 60 MG SUPP PR PRN (15:00)
== END 2021-10-27 17:25 | disposition home or self-care (01) | DRG 660 ==
LOC: ER 20:23 → ERHOLD 20:30 → INTOOBSV 20:30 → MED/SURG 22:32 → OBSVTOIN 10-26 08:30
PROVIDERS: ADMIT Internal Medicine; ATTEND Internal Medicine
PROC: 0T7D8ZZ Dilation of Urethra, Via Natural or Artificial Opening Endoscopic (ICD-10-PCS; 2021-10-27)
PROC: BT141ZZ Fluoroscopy of Kidneys, Ureters and Bladder using Low Osmolar Contrast (ICD-10-PCS; 2021-10-27)
PROC: 0TF3XZZ Fragmentation in Right Kidney Pelvis, External Approach (ICD-10-PCS; 2021-10-27)
PROC: 0T778DZ Dilation of Left Ureter with Intraluminal Device, Via Natural or Artificial Opening Endoscopic (ICD-10-PCS; principal; 2021-10-27 12:45)
PROC: 0TC78ZZ Extirpation of Matter from Left Ureter, Via Natural or Artificial Opening Endoscopic (ICD-10-PCS; 2021-10-27 12:45)
DX: N13.2 Hydronephrosis with renal and ureteral calculous obstruction (principal); D68.0 Von Willebrand disease; I42.8 Other cardiomyopathies; I25.10 Atherosclerotic heart disease of native coronary artery without angina pectoris; I11.9 Hypertensive heart disease without heart failure; E78.5 Hyperlipidemia, unspecified; D64.9 Anemia, unspecified; R31.29 Other microscopic hematuria; Z87.440 Personal history of urinary (tract) infections; N35.916 Unspecified urethral stricture, male, overlapping sites; N32.89 Other specified disorders of bladder; Z95.810 Presence of automatic (implantable) cardiac defibrillator; Z87.891 Personal history of nicotine dependence; I25.2 Old myocardial infarction; Z85.47 Personal history of malignant neoplasm of testis; Z88.2 Allergy status to sulfonamides; Z88.8 Allergy status to other drugs, medicaments and biological substances
CPT/HCPCS: 0223U; 36415; 50590; 74018; 80048; 80053; 83970; 84550; 85025; 85240; 85730; 85732; 87086; 88300; 93005; 93306; 96361; 99284; C1758; C1769; G0378; J0696; J1100; J2001; J2250; J2270; J2405; J3010; J7030

== ENCOUNTER → 2021-11-15 | Outpatient (CLI) | payer MEDICARE ==
[~2021-11-15] MED LIST changes: +KETOROLAC TROME10 MG PO; +OXYBUTYNIN CHLOR5 MG PO; +POTASSIUM CHLO10 ME1 PO; +PYRIDIUM200 MG PO
== END ==
LOC: CT 17:00
PROVIDERS: ATTEND Urology
DX: N13.2 Hydronephrosis with renal and ureteral calculous obstruction (principal)
CPT/HCPCS: 74176

== ENCOUNTER → 2021-11-17 | Day surgery (SDC) | payer MEDICARE ==
[~2021-11-17] MED LIST changes: +B&O 60MG R/S 60 MG SUPP PR ONE; +CEFTRIAXONE 1 GM VIAL ONE; +DEXAMETHASONE SOD PHOS INJ 4 MG/ML SDV ONE; +FENTANYL CITRATE/PF 100MCG/2 ML INJ ONE; +IOPAMIDOL 610MG/1ML 300 MG/ML VIAL IV ONE; +LIDOCAINE HCL 2% LOCAL INJ 5 ML SDV VIAL INJ ONE; +MIDAZOLAM HCL 2 MG/2 ML VIAL ONE; +ONDANSETRON HCL INJ 2MG/ML 2ML 2 MG/ML VIAL ONE; +POVIDONE IODINE 0.05% 0.05 % ML PO ONE; +PROPOFOL IV EMULSION 10 MG/ML 20 ML VIAL ONE; +SEVOFLURANE INHAL SOLN 250 ML PEN BTL ONE
[2021-11-17 14:05] VITALS: BP 126/82
== END | disposition home or self-care (01) ==
LOC: OR 12:06
PROVIDERS: ATTEND Urology
DX: N20.0 Calculus of kidney (principal); N35.919 Unspecified urethral stricture, male, unspecified site; R39.12 Poor urinary stream; R39.16 Straining to void; N28.1 Cyst of kidney, acquired; R80.9 Proteinuria, unspecified; N45.3 Epididymo-orchitis; D68.0 Von Willebrand disease; I25.2 Old myocardial infarction; E78.5 Hyperlipidemia, unspecified; I10 Essential (primary) hypertension; F17.210 Nicotine dependence, cigarettes, uncomplicated; Z88.6 Allergy status to analgesic agent; Z88.1 Allergy status to other antibiotic agents; Z88.2 Allergy status to sulfonamides; Z88.8 Allergy status to other drugs, medicaments and biological substances; Z20.822 Contact with and (suspected) exposure to COVID-19; Z79.899 Other long term (current) drug therapy; Z95.810 Presence of automatic (implantable) cardiac defibrillator; Z85.47 Personal history of malignant neoplasm of testis; Z80.52 Family history of malignant neoplasm of bladder; Z84.1 Family history of disorders of kidney and ureter
CPT/HCPCS: 0223U; 36415; 52351; 74420; C1769; J0696; J1100; J2001; J2250; J2405; J2704; J3010; Q9967

== ENCOUNTER → 2022-07-20 | Outpatient (CLI) | payer MEDICARE ==
[~2022-07-20] MED LIST changes: -B&O 60MG R/S 60 MG SUPP PR ONE; -CEFTRIAXONE 1 GM VIAL ONE; -DEXAMETHASONE SOD PHOS INJ 4 MG/ML SDV ONE; -FENTANYL CITRATE/PF 100MCG/2 ML INJ ONE; -IOPAMIDOL 610MG/1ML 300 MG/ML VIAL IV ONE; -LIDOCAINE HCL 2% LOCAL INJ 5 ML SDV VIAL INJ ONE; -MIDAZOLAM HCL 2 MG/2 ML VIAL ONE; -ONDANSETRON HCL INJ 2MG/ML 2ML 2 MG/ML VIAL ONE; -POVIDONE IODINE 0.05% 0.05 % ML PO ONE; -PROPOFOL IV EMULSION 10 MG/ML 20 ML VIAL ONE; -SEVOFLURANE INHAL SOLN 250 ML PEN BTL ONE
== END ==
LOC: CT 08:43
PROVIDERS: ATTEND Urology
DX: N20.0 Calculus of kidney (principal)
CPT/HCPCS: 74176

== ENCOUNTER → 2022-07-27 | Day surgery (SDC) | payer MEDICARE ==
[2022-07-26 08:36] LABS: BASOPHILS # (AUTO) 0.1 (0.0-0.1); BASOPHILS % 0.6 % (0.0-1.0); EOSINOPHILS # (AUTO) 0.3 (0.0-0.4); EOSINOPHILS % 1.8 % (0.0-6.0); HEMATOCRIT 47.7 % (38.2-49.6); HEMOGLOBIN 15.8 g/dL (14.0-18.0); LYMPHOCYTES # (AUTO) 2.8 (1.0-3.2); LYMPHOCYTES % 19.9 % (18.0-39.1); MEAN CORPUSCULAR HEMOGLOBIN 30.2 pg (28-32); MEAN CORPUSCULAR HGB CONC 33.1 g/dL (31-35); MEAN CORPUSCULAR VOLUME 91.2 fL (81-99); MONOCYTES # (AUTO) 1.3 (0.2-0.8); MONOCYTES % 9.1 % (4.4-11.3); NEUTROPHILS # (AUTO) 9.4 (2.1-6.9); NEUTROPHILS % 67.8 % (38.7-80.0); PLATELET COUNT 266 x10e3/uL (140-360); RED BLOOD COUNT 5.23 x10e6/uL (4.3-5.7); RED CELL DISTRIBUTION WIDTH 12.5 % (11.7-14.4)
[2022-07-26 08:53] LABS: ANION GAP 11.5 mmol/L (8-16); CALCIUM 9.1 mg/dL (8.4-10.2); CREATININE, SERUM 0.75 mg/dL (0.72-1.25); POTASSIUM 4.5 mmol/L (3.5-5.1)
[~2022-07-27] MED LIST changes: +CEFTRIAXONE 1 GM VIAL ONE; +DEXAMETHASONE SOD PHOS INJ 4 MG/ML SDV ONE; +EYE LUBRICANT OPTH OINT 3.5GM TUBE OP ONE; +FAMOTIDINE 20 MG/2 ML VIAL IV ONE; +FENTANYL CITRATE/PF 100MCG/2 ML INJ ONE; +GLYCOPYRROLATE INJ 0.2 MG/ML VIAL ONE; +IOPAMIDOL 610MG/1ML 300 MG/ML VIAL IV ONE; +LACTATED RINGER'S 1,000 ML ONE; +LIDOCAINE HCL 2% LOCAL INJ 5 ML SDV VIAL INJ ONE; +MIDAZOLAM HCL 2 MG/2 ML VIAL ONE; +ONDANSETRON HCL INJ 2MG/ML 2ML 2 MG/ML VIAL ONE; +PHENAZOPYRIDINE HCL 100 MG TAB ONE; +POVIDONE IODINE 0.05% 0.05 % ML PO ONE; +PROPOFOL IV EMULSION 10 MG/ML 20 ML VIAL ONE; +SEVOFLURANE INHAL SOLN 250 ML PEN BTL ONE; +SODIUM CHLORIDE 0.9% 100 ML ONE
[2022-07-27 10:05] VITALS: BP 130/89
== END | disposition home or self-care (01) ==
LOC: OR 05:40
PROVIDERS: ATTEND Urology
DX: N35.919 Unspecified urethral stricture, male, unspecified site (principal); N20.0 Calculus of kidney; N13.30 Unspecified hydronephrosis; N32.89 Other specified disorders of bladder; R39.12 Poor urinary stream; R39.16 Straining to void; A00-B99 Certain infectious and parasitic diseases; R80.9 Proteinuria, unspecified; G89.29 Other chronic pain; D68.00 Von Willebrand disease, unspecified; I10 Essential (primary) hypertension; E78.00 Pure hypercholesterolemia, unspecified; F17.200 Nicotine dependence, unspecified, uncomplicated; Z88.1 Allergy status to other antibiotic agents; Z88.2 Allergy status to sulfonamides; Z01.810 Encounter for preprocedural cardiovascular examination; Z01.812 Encounter for preprocedural laboratory examination; Z01.818 Encounter for other preprocedural examination; Z79.899 Other long term (current) drug therapy; Z85.038 Personal history of other malignant neoplasm of large intestine; Z80.52 Family history of malignant neoplasm of bladder; Z84.1 Family history of disorders of kidney and ureter
CPT/HCPCS: 36415; 52281; 71046; 74420; 80048; 84550; 85025; 93005; C1758; J0696; J1100; J2001; J2250; J2405; J2704; J3010; J7050; J7121; Q9967

== ENCOUNTER → 2023-11-05 | Day surgery (SDC) | payer MEDICARE ==
[~2023-11-05] MED LIST changes: +BUPROPION HCL100 M1 PO; +BUSPIRONE HCL5 MG PO; +CITALOPRAM HBR20 MG PO; -EYE LUBRICANT OPTH OINT 3.5GM TUBE OP ONE; -FAMOTIDINE 20 MG/2 ML VIAL IV ONE; +GABAPENTIN300 MG PO; -GLYCOPYRROLATE INJ 0.2 MG/ML VIAL ONE; +HYDROCODONE/APAP 7.5MG-325MG 1 EA TAB ONE; +HYDROMORPHONE 1MG/1ML INJ ONE; +METOPROLOL SUCC25 MG PO; -PHENAZOPYRIDINE HCL 100 MG TAB ONE; +POTASSIUM CITR10 MEQ PO; -POVIDONE IODINE 0.05% 0.05 % ML PO ONE; +RAMIPRIL2.5 MG PO; -SODIUM CHLORIDE 0.9% 100 ML ONE
[2023-11-05 06:58] LABS: BASOPHILS # (AUTO) 0.1 (0.0-0.1); BASOPHILS % 0.8 % (0.0-1.0); EOSINOPHILS # (AUTO) 0.4 (0.0-0.4); EOSINOPHILS % 4.1 % (0.0-6.0); HEMATOCRIT 48.3 % (38.2-49.6); HEMOGLOBIN 15.9 g/dL (14.0-18.0); LYMPHOCYTES # (AUTO) 2.4 (1.0-3.2); LYMPHOCYTES % 27.5 % (18.0-39.1); MEAN CORPUSCULAR HEMOGLOBIN 29.9 pg (28-32); MEAN CORPUSCULAR HGB CONC 32.9 g/dL (31-35); MEAN CORPUSCULAR VOLUME 90.8 fL (81-99); MONOCYTES # (AUTO) 0.8 (0.2-0.8); MONOCYTES % 8.4 % (4.4-11.3); NEUTROPHILS # (AUTO) 5.2 (2.1-6.9); NEUTROPHILS % 58.4 % (38.7-80.0); PLATELET COUNT 241 x10e3/uL (140-360); RED BLOOD COUNT 5.32 x10e6/uL (4.3-5.7); RED CELL DISTRIBUTION WIDTH 11.8 % (11.7-14.4); WHITE BLOOD COUNT 8.88 x10e3/uL (4.8-10.8)
[2023-11-05 07:29] LABS: ANION GAP 13.9 mmol/L (8-16); CALCIUM 8.9 mg/dL (8.4-10.2); CREATININE, SERUM 0.75 mg/dL (0.72-1.25); POTASSIUM 3.9 mmol/L (3.5-5.1)
[2023-11-05 07:50] VITALS: TEMP 98.5
[2023-11-05] MEDS: HYDROMORPHONE 1MG/1ML INJ IV ONE ×2 (08:05→08:12)
[2023-11-05 08:34] VITALS: BP 139/101; PULSE 67; RESP 18; O2SAT 95
[2023-11-05] MEDS: HYDROCODONE/APAP 7.5MG-325MG 1 EA TAB PO ONE (08:40)
[2023-11-06 07:22] LABS: CALCIUM 9.2 mg/dL (8.7-10.2)
== END | disposition home or self-care (01) ==
LOC: OR 05:47
PROVIDERS: ATTEND Urology
DX: N20.0 Calculus of kidney (principal); N39.0 Urinary tract infection, site not specified; N35.819 Other urethral stricture, male, unspecified site; N28.89 Other specified disorders of kidney and ureter; N28.1 Cyst of kidney, acquired; N35.919 Unspecified urethral stricture, male, unspecified site; I10 Essential (primary) hypertension; D68.00 Von Willebrand disease, unspecified; E78.5 Hyperlipidemia, unspecified; E66.01 Morbid (severe) obesity due to excess calories; I42.9 Cardiomyopathy, unspecified; Z88.6 Allergy status to analgesic agent; Z88.1 Allergy status to other antibiotic agents; Z88.2 Allergy status to sulfonamides; Z79.899 Other long term (current) drug therapy; Z95.810 Presence of automatic (implantable) cardiac defibrillator; Z84.1 Family history of disorders of kidney and ureter; Z80.52 Family history of malignant neoplasm of bladder
CPT/HCPCS: 36415; 52332; 52351; 74420; 80048; 83970; 84550; 85025; 93005; C1758; C1769; C2617; J0696; J1100; J1170; J2001; J2250; J2405; J2704; J3010; J7121; Q9967

== ENCOUNTER 2023-11-07 15:00 | Inpatient (IN) | payer MEDICARE ==
[~2023-11-07] VITALS: Ht 165.1 cm; Wt 86.2 kg
[~2023-11-07 15:00] MED LIST changes: -BUPROPION HCL100 M1 PO; -CEFTRIAXONE 1 GM VIAL ONE; -CITALOPRAM HBR20 MG PO; -DEXAMETHASONE SOD PHOS INJ 4 MG/ML SDV ONE; -FENTANYL CITRATE/PF 100MCG/2 ML INJ ONE; -GABAPENTIN300 MG PO; -HYDROCODONE/APAP 7.5MG-325MG 1 EA TAB ONE; -HYDROMORPHONE 1MG/1ML INJ ONE; -IOPAMIDOL 610MG/1ML 300 MG/ML VIAL IV ONE; -LACTATED RINGER'S 1,000 ML ONE; -LIDOCAINE HCL 2% LOCAL INJ 5 ML SDV VIAL INJ ONE; -METOPROLOL SUCC25 MG PO; -MIDAZOLAM HCL 2 MG/2 ML VIAL ONE; -ONDANSETRON HCL INJ 2MG/ML 2ML 2 MG/ML VIAL ONE; -POTASSIUM CITR10 MEQ PO; -PROPOFOL IV EMULSION 10 MG/ML 20 ML VIAL ONE; -RAMIPRIL2.5 MG PO; -SEVOFLURANE INHAL SOLN 250 ML PEN BTL ONE
[2023-11-07 15:25] VITALS: PULSE 58; RESP 18; TEMP 98.4
[2023-11-07 15:51] LABS: BASOPHILS # (AUTO) 0.1 (0.0-0.1); BASOPHILS % 0.7 % (0.0-1.0); EOSINOPHILS # (AUTO) 0.3 (0.0-0.4); EOSINOPHILS % 2.6 % (0.0-6.0); HEMATOCRIT 45.3 % (38.2-49.6); HEMOGLOBIN 14.6 g/dL (14.0-18.0); LYMPHOCYTES # (AUTO) 3.5 (1.0-3.2); LYMPHOCYTES % 29.5 % (18.0-39.1); MEAN CORPUSCULAR HEMOGLOBIN 29.7 pg (28-32); MEAN CORPUSCULAR HGB CONC 32.2 g/dL (31-35); MEAN CORPUSCULAR VOLUME 92.1 fL (81-99); NEUTROPHILS % 58.7 % (38.7-80.0); PLATELET COUNT 217 x10e3/uL (140-360); RED BLOOD COUNT 4.92 x10e6/uL (4.3-5.7); RED CELL DISTRIBUTION WIDTH 12.2 % (11.7-14.4); WHITE BLOOD COUNT 11.85 x10e3/uL (4.8-10.8)
[2023-11-07] MEDS: SODIUM CHLORIDE 0.9% 1000ML 1,000 ML IV SCH (16:16)
[2023-11-07] MEDS: HYDROMORPHONE 1MG/1ML INJ IV PRN (16:17)
[2023-11-07 16:33] LABS: ALBUMIN 3.8 g/dL (3.5-5.0); ALBUMIN/GLOBULIN RATIO 1.2 (0.8-2.0); ANION GAP 13.7 mmol/L (8-16); BILIRUBIN,TOTAL 0.2 mg/dL (0.2-1.2); CALCIUM 9.1 mg/dL (8.4-10.2); CREATININE, SERUM 0.86 mg/dL (0.72-1.25); POTASSIUM 4.7 mmol/L (3.5-5.1)
[2023-11-07 18:31] VITALS: BP 135/91; PULSE 59; RESP 20; TEMP 98.1; O2SAT 99
[2023-11-07 19:23] LABS: CLARITY,URINE CLOUDY (CLEAR); COLOR,URINE RED (YELLOW); LEUKOCYTE ESTERASE ,URINE SMALL (NEGATIVE); PH,URINE 6.5 (5 - 7)
[2023-11-07 19:24] LABS: BILIRUBIN,URINE NEGATIVE (NEGATIVE); GLUCOSE, URINE NEGATIVE (NEGATIVE); KETONES,URINE NEGATIVE (NEGATIVE); NITRITE,URINE NEGATIVE (NEGATIVE); PROTEIN,URINE DIPSTICK 2+ (NEGATIVE); URINE UROBILINOGEN 0.2 mg/dL (0.2 - 1)
[2023-11-07 19:25] LABS: BACTERIA,URINE FEW /HPF; RBC,URINE >50 /HPF (0-5); WBC,URINE (MAN) 0-5 /HPF (0-5)
[2023-11-07 20:00] VITALS: BP 132/79; PULSE 60; RESP 18; TEMP 98.4; O2SAT 98
[2023-11-07] MEDS ORDERED: RAMIPRIL2.5 MG PO (23:26)
[2023-11-07] MEDS ORDERED: GABAPENTIN300 MG PO (23:26)
[2023-11-07] MEDS ORDERED: POTASSIUM CITR10 MEQ PO (23:26)
[2023-11-07] MEDS ORDERED: BUPROPION HCL100 M1 PO (23:26)
[2023-11-07] MEDS ORDERED: CITALOPRAM HBR20 MG PO (23:26)
[2023-11-07] MEDS ORDERED: METOPROLOL SUCC25 MG PO (23:26)
[2023-11-08] VITALS (7 sets, daily range): BP systolic 123–155; BP diastolic 60–97; PULSE 56–94; RESP 16–20; TEMP 97.6–98.6; O2SAT 97–98
[2023-11-08] MEDS: ONDANSETRON HCL INJ 2MG/ML 2ML 2 MG/ML VIAL IV PRN (02:54)
[2023-11-08] MEDS: SODIUM CHLORIDE 0.9% 1000ML 1,000 ML IV SCH (03:55)
[2023-11-08 06:24] LABS: BASOPHILS # (AUTO) 0.1 (0.0-0.1); BASOPHILS % 0.5 % (0.0-1.0); EOSINOPHILS # (AUTO) 0.3 (0.0-0.4); EOSINOPHILS % 2.4 % (0.0-6.0); HEMATOCRIT 47.8 % (38.2-49.6); HEMOGLOBIN 14.4 g/dL (14.0-18.0); LYMPHOCYTES # (AUTO) 2.5 (1.0-3.2); LYMPHOCYTES % 22.6 % (18.0-39.1); MEAN CORPUSCULAR HEMOGLOBIN 30.8 pg (28-32); MEAN CORPUSCULAR HGB CONC 30.1 g/dL (31-35); MEAN CORPUSCULAR VOLUME 102.1 fL (81-99); MONOCYTES # (AUTO) 0.9 (0.2-0.8); MONOCYTES % 7.5 % (4.4-11.3); NEUTROPHILS # (AUTO) 7.4 (2.1-6.9); NEUTROPHILS % 66.1 % (38.7-80.0); PLATELET COUNT 161 x10e3/uL (140-360); RED BLOOD COUNT 4.68 x10e6/uL (4.3-5.7); RED CELL DISTRIBUTION WIDTH 12.3 % (11.7-14.4); WHITE BLOOD COUNT 11.26 x10e3/uL (4.8-10.8)
[2023-11-08 06:54] LABS: ANION GAP 10.6 mmol/L (8-16); CALCIUM 8.6 mg/dL (8.4-10.2); CREATININE, SERUM 0.75 mg/dL (0.72-1.25); POTASSIUM 4.6 mmol/L (3.5-5.1)
[2023-11-09] VITALS: BP 147/80; PULSE 61; RESP 18; TEMP 98.2; O2SAT 99
[2023-11-09 04:00] VITALS: BP 134/90; PULSE 70; RESP 18; TEMP 97.9; O2SAT 98
[2023-11-09 09:34] VITALS: BP 134/90; PULSE 70; RESP 18; TEMP 97.9; O2SAT 98
[2023-11-09] MEDS ORDERED: GABAPENTIN 300 MG CAP PO SCH (15:00)
[2023-11-09] MEDS ORDERED: BUPROPION HCL 100 MG TAB PO SCH (17:00)
[2023-11-10] MEDS ORDERED: METOPROLOL SUCCINATE 25 MG TAB XL PO SCH (09:00)
[2023-11-10] MEDS ORDERED: TAMSULOSIN HCL 0.4 MG CAP PO SCH (09:00)
== END 2023-11-09 15:40 | disposition home or self-care (01) | DRG 696 ==
LOC: ER 15:10 → ERHOLD 15:44 → MED/SURG 18:27
PROVIDERS: ADMIT Internal Medicine; ATTEND Internal Medicine
DX: R31.9 Hematuria, unspecified (principal); D68.00 Von Willebrand disease, unspecified; I10 Essential (primary) hypertension; E78.5 Hyperlipidemia, unspecified; I25.10 Atherosclerotic heart disease of native coronary artery without angina pectoris; E66.9 Obesity, unspecified; Z68.31 Body mass index [BMI] 31.0-31.9, adult; Z11.52 Encounter for screening for COVID-19; Z96.0 Presence of urogenital implants; I25.2 Old myocardial infarction; Z85.048 Personal history of other malignant neoplasm of rectum, rectosigmoid junction, and anus; Z85.47 Personal history of malignant neoplasm of testis; Z87.442 Personal history of urinary calculi; Z90.49 Acquired absence of other specified parts of digestive tract; Z95.810 Presence of automatic (implantable) cardiac defibrillator; Z90.79 Acquired absence of other genital organ(s); Z88.1 Allergy status to other antibiotic agents; Z88.2 Allergy status to sulfonamides; Z88.6 Allergy status to analgesic agent; F17.210 Nicotine dependence, cigarettes, uncomplicated
CPT/HCPCS: 36415; 80048; 80053; 81001; 85025; 87086; 93970; 99284; J1170; J2405; J7030; U0002

== ENCOUNTER 2024-08-10 11:32 | Inpatient (IN) | payer MEDICARE ==
[~2024-08-10] VITALS: Ht 165.1 cm; Wt 89.4 kg
[2024-08-10] VITALS (7 sets, daily range): BP systolic 134–153; BP diastolic 63–80; PULSE 51–62; RESP 11–22; TEMP 97.9–98.6; O2SAT 95–100
[~2024-08-10 11:32] MED LIST changes: +BUPROPION HCL100 M1 PO; +CITALOPRAM HBR20 MG PO; +GABAPENTIN300 MG PO; +METOPROLOL SUCC25 MG PO; +POTASSIUM CITR10 MEQ PO; +RAMIPRIL2.5 MG PO; +TESTOSTERO100 MG/1 M; +VENTOLIN HFA18 GM INH
[2024-08-10] MEDS ORDERED: SODIUM CHLORIDE 0.9% 1000ML 2,400 ML IV SCH (12:00)
[2024-08-10 13:04] LABS: BASOPHILS # (AUTO) 0.1 (0.0-0.1); BASOPHILS % 0.8 % (0.0-1.0); EOSINOPHILS # (AUTO) 0.3 (0.0-0.4); EOSINOPHILS % 3.1 % (0.0-6.0); HEMATOCRIT 46.3 % (38.2-49.6); LYMPHOCYTES # (AUTO) 3.2 (1.0-3.2); LYMPHOCYTES % 30.6 % (18.0-39.1); MEAN CORPUSCULAR HEMOGLOBIN 26.1 pg (28-32); MEAN CORPUSCULAR HGB CONC 32.4 g/dL (31-35); MEAN CORPUSCULAR VOLUME 80.5 fL (81-99); MONOCYTES # (AUTO) 0.8 (0.2-0.8); MONOCYTES % 7.7 % (4.4-11.3); NEUTROPHILS % 57.3 % (38.7-80.0); PLATELET COUNT 275 x10e3/uL (140-360); RED BLOOD COUNT 5.75 x10e6/uL (4.3-5.7); RED CELL DISTRIBUTION WIDTH 12.7 % (11.7-14.4); WHITE BLOOD COUNT 10.47 x10e3/uL (4.8-10.8)
[2024-08-10 13:10] LABS: BILIRUBIN,URINE NEGATIVE (NEGATIVE); CLARITY,URINE CLEAR (CLEAR); COLOR,URINE YELLOW (YELLOW); GLUCOSE, URINE NEGATIVE (NEGATIVE); KETONES,URINE NEGATIVE (NEGATIVE); LEUKOCYTE ESTERASE ,URINE NEGATIVE (NEGATIVE); NITRITE,URINE NEGATIVE (NEGATIVE); PH,URINE 6.5 (5 - 7); PROTEIN,URINE DIPSTICK NEGATIVE (NEGATIVE); URINE UROBILINOGEN 0.2 mg/dL (0.2 - 1)
[2024-08-10] MEDS: ONDANSETRON HCL INJ 2MG/ML 2ML 2 MG/ML VIAL IV PRN (13:10)
[2024-08-10] MEDS: SODIUM CHLORIDE 0.9% 1000ML 1,000 ML IV SCH (13:10)
[2024-08-10] MEDS: FENTANYL CITRATE/PF 100MCG/2 ML INJ IV PRN (13:10)
[2024-08-10 13:31] LABS: ALBUMIN 4.2 g/dL (3.5-5.0); ALBUMIN/GLOBULIN RATIO 1.1 (0.8-2.0); ANION GAP 15.4 mmol/L (8-16); BILIRUBIN,TOTAL 0.6 mg/dL (0.2-1.2); CALCIUM 9.1 mg/dL (8.4-10.2); CREATININE, SERUM 0.85 mg/dL (0.72-1.25); POTASSIUM 4.4 mmol/L (3.5-5.1); TOTAL PROTEIN 7.9 g/dL (6.5-8.1)
[2024-08-10 13:32] LABS: INR 1.02
[2024-08-10 13:33] LABS: PARTIAL THROMBOPLASTIN TIME 29.7 seconds (23.8-35.5)
[2024-08-10 13:34] LABS: EPITHELIAL CELLS,URINE MODERATE /LPF; RBC,URINE 0-5 /HPF (0-5); WBC,URINE (MAN) 0-5 /HPF (0-5)
[2024-08-10] MEDS ORDERED: PANTOPRAZOLE SO40 MG PO (15:59)
[2024-08-10] MEDS ORDERED: KETOROLAC TROMETHAMINE 30 MG/ML VIAL IV PRN (17:45)
[2024-08-10] MEDS ORDERED: ALBUTEROL1.25 MG/3 NEB (17:50)
[2024-08-10] MEDS: HYDROMORPHONE 1MG/1ML INJ IV PRN (18:35)
[2024-08-10] MEDS ORDERED: ALBUTEROL 90 MCG/ACT INHALER INH PRN (18:45)
[2024-08-10] MEDS: METOPROLOL SUCCINATE 25 MG TAB XL PO SCH (21:00)
[2024-08-10] MEDS: RAMIPRIL 5 MG CAP PO SCH (21:00)
[2024-08-10] MEDS: CITALOPRAM HYDROBROMIDE 20 MG TAB PO SCH (22:28)
[2024-08-10] MEDS: ATORVASTATIN 10 MG TAB PO SCH (22:28)
[2024-08-11] VITALS (10 sets, daily range): BP systolic 122–154; BP diastolic 54–90; PULSE 45–77; RESP 18–20; TEMP 97.5–98; O2SAT 96–100
[2024-08-11 06:36] LABS: BASOPHILS # (AUTO) 0.1 (0.0-0.1); BASOPHILS % 0.9 % (0.0-1.0); EOSINOPHILS # (AUTO) 0.4 (0.0-0.4); EOSINOPHILS % 4.7 % (0.0-6.0); HEMATOCRIT 44.5 % (38.2-49.6); HEMOGLOBIN 13.9 g/dL (14.0-18.0); MEAN CORPUSCULAR HGB CONC 31.2 g/dL (31-35); MEAN CORPUSCULAR VOLUME 83.2 fL (81-99); MONOCYTES # (AUTO) 0.9 (0.2-0.8); MONOCYTES % 9.8 % (4.4-11.3); NEUTROPHILS # (AUTO) 4.4 (2.1-6.9); NEUTROPHILS % 50.1 % (38.7-80.0); PLATELET COUNT 269 x10e3/uL (140-360); RED BLOOD COUNT 5.35 x10e6/uL (4.3-5.7); RED CELL DISTRIBUTION WIDTH 12.7 % (11.7-14.4); WHITE BLOOD COUNT 8.71 x10e3/uL (4.8-10.8)
[2024-08-11 07:05] LABS: ANION GAP 12.5 mmol/L (8-16); CALCIUM 8.6 mg/dL (8.4-10.2); CREATININE, SERUM 0.75 mg/dL (0.72-1.25); POTASSIUM 4.5 mmol/L (3.5-5.1)
[2024-08-11] MEDS ORDERED: METOPROLOL TARTRATE INJ 1 MG/ML VIAL IV PRN (07:30)
[2024-08-11] MEDS: HYDROCODONE/APAP 10MG-325MG TAB PO PRN (07:52)
[2024-08-11] MEDS: PANTOPRAZOLE SOD 40 MG TABEC PO ONE (07:52)
[2024-08-11] MEDS: METOPROLOL TARTRATE 25 MG TAB PO SCH (07:55)
[2024-08-11] MEDS: PANTOPRAZOLE SOD 40 MG TABEC PO SCH (08:00)
[2024-08-11] MEDS: HYDROMORPHONE 1MG/1ML INJ IV PRN (08:33)
[2024-08-11] MEDS ORDERED: ACETAMINOPHEN 325 MG TAB PO PRN (11:15)
[2024-08-11] MEDS ORDERED: DESMOPRESSIN ACETATE 4 MCG/ML VIAL IV ONE (19:45)
[2024-08-12] VITALS (10 sets, daily range): BP systolic 123–163; BP diastolic 74–92; PULSE 56–84; RESP 16–20; TEMP 97.8–98.6; O2SAT 93–97
[2024-08-12] MEDS: NICOTINE 21 MG/EA PATCH TOP SCH (11:53)
[2024-08-12] MEDS ORDERED: LIDOCAINE HCL 2% LOCAL INJ 5 ML SDV VIAL INJ ONE (15:47)
[2024-08-12] MEDS ORDERED: FENTANYL CITRATE/PF 100MCG/2 ML INJ ONE ×2 (15:47→17:08)
[2024-08-12] MEDS ORDERED: PROPOFOL IV EMULSION 10 MG/ML 20 ML VIAL ONE (15:48)
[2024-08-12] MEDS: ALPRAZOLAM 0.5 MG TAB PO PRN (15:53)
[2024-08-12] MEDS ORDERED: ONDANSETRON HCL INJ 2MG/ML 2ML 2 MG/ML VIAL ONE ×2 (16:56→17:32)
[2024-08-12] MEDS ORDERED: DEXAMETHASONE SOD PHOS INJ 4 MG/ML SDV ONE (16:56)
[2024-08-12] MEDS ORDERED: GLYCOPYRROLATE INJ 0.2 MG/ML VIAL ONE (16:58)
[2024-08-12] MEDS: DESMOPRESSIN ACETATE 5 ML SPRAY NS ONE (17:01)
[2024-08-12] MEDS ORDERED: HYDRALAZINE HCL 20 MG/ML VIAL ONE (17:16)
[2024-08-12] MEDS ORDERED: HYDROMORPHONE 2MG/ML ONE (17:35)
[2024-08-12] MEDS ORDERED: ACETAMINOPHEN 1000 MG/100 ML 100 ML IV ONE (17:38)
[2024-08-12] MEDS: FENTANYL CITRATE/PF 100MCG/2 ML INJ ONE (18:17)
[2024-08-12] MEDS: HYDROMORPHONE 2MG/ML IV PRN (18:46)
[2024-08-12] MEDS: PANTOPRAZOLE SOD 40 MG TABEC PO SCH (19:37)
[2024-08-13] VITALS: BP 141/81; PULSE 76; RESP 18; TEMP 98.6; O2SAT 94
[2024-08-13] MEDS: SODIUM CHLORIDE 0.9% 100 ML ONE (00:43)
[2024-08-13] MEDS: PIPERACILLIN/TAZOBACTAM 3.375 GM VIAL ONE (00:43)
[2024-08-13 04:00] VITALS: BP 139/69; PULSE 76; RESP 18; TEMP 98; O2SAT 95
[2024-08-13 06:24] LABS: BASOPHILS % 0.2 % (0.0-1.0); HEMATOCRIT 43.1 % (38.2-49.6); HEMOGLOBIN 13.6 g/dL (14.0-18.0); LYMPHOCYTES # (AUTO) 1.1 (1.0-3.2); LYMPHOCYTES % 7.5 % (18.0-39.1); MEAN CORPUSCULAR HEMOGLOBIN 25.8 pg (28-32); MEAN CORPUSCULAR HGB CONC 31.6 g/dL (31-35); MEAN CORPUSCULAR VOLUME 81.8 fL (81-99); MONOCYTES # (AUTO) 0.5 (0.2-0.8); MONOCYTES % 3.7 % (4.4-11.3); NEUTROPHILS # (AUTO) 12.5 (2.1-6.9); PLATELET COUNT 302 x10e3/uL (140-360); RED BLOOD COUNT 5.27 x10e6/uL (4.3-5.7); RED CELL DISTRIBUTION WIDTH 12.8 % (11.7-14.4); WHITE BLOOD COUNT 14.18 x10e3/uL (4.8-10.8)
[2024-08-13 06:49] LABS: ANION GAP 16.7 mmol/L (8-16); CALCIUM 8.9 mg/dL (8.4-10.2); CREATININE, SERUM 0.82 mg/dL (0.72-1.25); POTASSIUM 4.7 mmol/L (3.5-5.1)
[2024-08-13 07:55] VITALS: PULSE 63; RESP 18; O2SAT 96
[2024-08-13 08:00] VITALS: BP 135/79; PULSE 91; RESP 21; TEMP 98.1; O2SAT 97
[2024-08-13] MEDS ORDERED: DESMOPRESSIN ACETATE 5 ML SPRAY NS SCH (09:00)
[2024-08-14] MEDS ORDERED: HYDROCODON-ACE1 EA11 PO (17:16)
== END 2024-08-13 10:40 | disposition home or self-care (01) | DRG 711 ==
LOC: ER 11:47 → ERHOLD 12:01 → MED/SURG3 15:31
PROVIDERS: ADMIT Internal Medicine; ATTEND Internal Medicine
PROC: 0VT90ZZ Resection of Right Testis, Open Approach (ICD-10-PCS; principal; 2024-08-12 16:42)
DX: N49.2 Inflammatory disorders of scrotum (principal); D68.00 Von Willebrand disease, unspecified; I42.8 Other cardiomyopathies; I10 Essential (primary) hypertension; E78.5 Hyperlipidemia, unspecified; E66.9 Obesity, unspecified; Z79.890 Hormone replacement therapy; Z95.828 Presence of other vascular implants and grafts; I25.2 Old myocardial infarction; Z90.49 Acquired absence of other specified parts of digestive tract; Z85.47 Personal history of malignant neoplasm of testis; Z90.79 Acquired absence of other genital organ(s); Z88.1 Allergy status to other antibiotic agents; Z88.2 Allergy status to sulfonamides; Z88.6 Allergy status to analgesic agent; Z87.891 Personal history of nicotine dependence; Z82.49 Family history of ischemic heart disease and other diseases of the circulatory system
CPT/HCPCS: 36415; 80048; 80053; 81001; 83605; 85025; 85610; 85730; 87040; 87086; 88304; 88305; 93005; 94799; 99252; 99284; J0360; J1100; J1171; J2003; J2405; J2470; J2543; J7030; J7050

== ENCOUNTER 2024-08-14 13:32 | Emergency (ER) | payer MEDICARE ==
[~2024-08-14] VITALS: Ht 165.1 cm; Wt 90.7 kg
[~2024-08-14 13:32] MED LIST changes: +ALBUTEROL1.25 MG/3 NEB
[2024-08-14 13:51] VITALS: TEMP 98.7
[2024-08-14] MEDS ORDERED: IOPAMIDOL 370 MG/ML 100 ML INFUS..BTL INJ ONE (14:17)
[2024-08-14] MEDS: ONDANSETRON HCL INJ 2MG/ML 2ML 2 MG/ML VIAL IV STA (14:17)
[2024-08-14] MEDS: SODIUM CHLORIDE 0.9% 1000ML 1,000 ML IV ONE (14:18)
[2024-08-14] MEDS: Morphine 4mg INJECTION 4 MG/ML INJ IV ONE (14:19)
[2024-08-14 14:20] LABS: BASOPHILS # (AUTO) 0.1 (0.0-0.1); BASOPHILS % 0.7 % (0.0-1.0); EOSINOPHILS # (AUTO) 0.2 (0.0-0.4); EOSINOPHILS % 1.3 % (0.0-6.0); HEMATOCRIT 44.4 % (38.2-49.6); HEMOGLOBIN 14.1 g/dL (14.0-18.0); LYMPHOCYTES # (AUTO) 3.3 (1.0-3.2); MEAN CORPUSCULAR HEMOGLOBIN 25.9 pg (28-32); MEAN CORPUSCULAR HGB CONC 31.8 g/dL (31-35); MEAN CORPUSCULAR VOLUME 81.5 fL (81-99); MONOCYTES # (AUTO) 1.2 (0.2-0.8); NEUTROPHILS # (AUTO) 7.1 (2.1-6.9); NEUTROPHILS % 59.7 % (38.7-80.0); PLATELET COUNT 291 x10e3/uL (140-360); RED BLOOD COUNT 5.45 x10e6/uL (4.3-5.7); RED CELL DISTRIBUTION WIDTH 13.5 % (11.7-14.4); WHITE BLOOD COUNT 11.88 x10e3/uL (4.8-10.8)
[2024-08-14 14:41] LABS: INR 0.97; PROTHROMBIN TIME 13.8 seconds (11.9-14.5)
[2024-08-14 14:42] LABS: PARTIAL THROMBOPLASTIN TIME 32.7 seconds (23.8-35.5)
[2024-08-14 14:45] LABS: ALBUMIN 3.7 g/dL (3.5-5.0); ALBUMIN/GLOBULIN RATIO 1.1 (0.8-2.0); ANION GAP 14.9 mmol/L (8-16); BILIRUBIN,TOTAL 0.3 mg/dL (0.2-1.2); CALCIUM 8.8 mg/dL (8.4-10.2); CREATININE, SERUM 0.8 mg/dL (0.72-1.25); POTASSIUM 3.9 mmol/L (3.5-5.1)
[2024-08-14 16:01] VITALS: PULSE 65; RESP 16; O2SAT 99
[2024-08-14] MEDS ORDERED: KETOROLAC TROMETHAMINE 30 MG/ML VIAL IV STA (16:07)
[2024-08-14] MEDS ORDERED: KETOROLAC TROMETHAMINE 30 MG/ML VIAL ONE (16:18)
[2024-08-14] MEDS ORDERED: HYDROCODON-ACE1 EA11 PO (17:16)
== END 2024-08-14 17:29 | disposition home or self-care (01) ==
LOC: ER 13:47
DX: G89.18 Other acute postprocedural pain (principal); N50.811 Right testicular pain; I10 Essential (primary) hypertension; Z85.47 Personal history of malignant neoplasm of testis; I25.2 Old myocardial infarction; Z87.442 Personal history of urinary calculi
CPT/HCPCS: 36415; 74177; 80053; 85025; 85610; 85730; 99284; J1885; J2270; J2405; J7030; Q9967